=== PATIENT | female | born 1965 | race Caucasian/White ===

== ENCOUNTER → 2016-10-07 | Outpatient (CLI) | payer OTHER ==
[~2016-10-07] MED LIST: DIPH25TA24 PO; NAPR-1168 PO; PANT40TA PO; TRIA3AER NAE
--- NOTE | 2016-10-07 15:38 | MAMMOGRAPHY REPORT ---
BILATERAL DIGITAL SCREENING MAMMOGRAM TOMOSYNTHESIS WITH CAD: 10/07/2016 CLINICAL HISTORY: Routine screening. TECHNIQUE: Breast tomosynthesis in addition to standard 2D mammography was performed. Current study was also evaluated with a Computer Aided Detection (CAD) system. COMPARISON: Comparison is made to exams dated: 02/20/2015 mammogram, 10/03/2013 mammogram, 11/04/2012 mammogram, 04/02/2012 mammogram, 03/31/2012 mammogram, and 11/26/2009 mammogram - [facility]. BREAST COMPOSITION: The tissue of both breasts is almost entirely fatty. The breast parenchyma is i ncreasingly fatty replaced comparing to more remote mammograms. FINDINGS: No suspicious mass, architectural distortion or cluster of microcalcifications is seen. IMPRESSION: ACR BI-RADS CATEGORY 1: NEGATIVE There is no mammographic evidence of malignancy. A 1 year screening mammogram is recommended. The pa tient will receive written notification of the results. Approximately 10% of breast cancers are not detected with mammography. A negative mammographic report should not delay biopsy if a clinically suggestive mass is present. Marva Cook M.D. ay/:10/07/2016 15:19:23 Dye Winch Operator: Nettie NAIK(R)(M), [facility] letter sent: Normal 1/2 BI-RADS Code: ACR BI-RADS Category 1: Negative
== END | disposition home or self-care (01) ==
LOC: C.MAMM 12:18
PROVIDERS: ATTEND Physician Assistant
DX: Z12.31 Encounter for screening mammogram for malignant neoplasm of breast (principal)

== ENCOUNTER → 2017-11-24 | Outpatient (CLI) | payer OTHER ==
[~2017-11-24] MED LIST changes: -NAPR-1168 PO; +NAPR550T61 PO
--- NOTE | 2017-11-25 13:51 | MAMMOGRAPHY REPORT ---
BILATERAL DIGITAL SCREENING MAMMOGRAM TOMOSYNTHESIS WITH CAD: 11/24/2017 CLINICAL HISTORY: Routine screening. TECHNIQUE: The study was acquired using full field digital technology and interpreted from soft copy. Breast tomosynthesis in addition to standard 2D mammography was performed. Current study was also ev aluated with a Computer Aided Detection (CAD) system. COMPARISON: Comparison is made to exams dated: 10/07/2016 mammogram, 02/20/2015 mammogram, 10/03/2013 mammogram, 03/31/2012 mammogram, 11/26/2009 mammogram - [facility], and 11/23/2008. BREAST COMPOSITION: The tissue of both breasts is almost entirely fatty. FINDINGS: A linear scar marker overlies the medial left breast. No suspicious mass, architectural dis tortion or cluster of microcalcifications is seen. IMPRESSION: ACR BI-RADS CATEGORY 1: NEGATIVE There is no mammographic evidence of malignancy. A 1 year screening mammogram is recommended.( 019) The patient will receive written notification of the results. Some breast cancers are not detected with mammography. A negative mammographic report should not kelsie y biopsy if a clinically suggestive mass is present. Marva Cook M.D. ay/:11/24/2017 21:53:08 Wastewater Design Engineer: RT Nacho(Allan)(M), [facility] letter sent: Normal 1/2 BI-RADS Code: ACR BI-RADS Category 1: Negative
== END | disposition home or self-care (01) ==
LOC: C.MAMM 15:05
PROVIDERS: ATTEND Physician Assistant
DX: Z12.31 Encounter for screening mammogram for malignant neoplasm of breast (principal)

== ENCOUNTER 2019-02-14 08:33 | Inpatient (IN) ==
[2019-02-14] MEDS ORDERED: ACETAMINOPHEN 1,000 MG/100 ML VIAL IV STA (09:26)
[2019-02-14] MEDS ORDERED: ONDANSETRON INJ 2 MG/ML 2 ML VIAL IV STA (09:26)
[2019-02-14] MEDS ORDERED: HYDROmorphone INJ 1 MG/ML SYRINGE IV PRN (09:26)
--- NOTE | 2019-02-14 09:36 | XRay Report ---
XR chest 1V not portable HISTORY: 53 years-old Female chest/upper abd pain acute atypical chest pain with upper abdominal ang n COMPARISON: Chest radiograph 07/21/2018 TECHNIQUE: Portable AP view of the chest FINDINGS: The cardiac silhouette is upper limits of normal in size. Mediastinal contours appear unremarkable. N o pneumothorax, pleural effusion, focal airspace consolidation or overt pulmonary edema. Degenerative changes of the shoulders and spine. IMPRESSION: No acute process. The above report was generated using voice recognition software. It may contain grammatical, syntax o r spelling errors. Electronically signed by: Vinay Cabrera M.D. 02/14/2019 9:35 AM
[2019-02-14 09:50] LABS: Basophils # (auto) 0.03 K/uL (0-0.2); Basophils % (auto) 0.2 %; Eosinophils # (auto) 0.04 K/uL (0-0.5); Eosinophils % (auto) 0.2 %; Hematocrit (blood only) 44.7 % (37-47); Hemoglobin 16.2 g/dL (12.0-16.0); Immature Granulocytes # (auto) 0.05 K/uL (0.00-0.02); Immature Granulocytes % (auto) 0.3 %; Lymphocytes # (auto) 1.27 K/uL (1.2-3.4); Mean Corpuscular Hgb Conc 36.2 g/dL (32-36); Mean Corpuscular Volume 80.1 fL (80-100); Mean Platelet Volume 9.3 fL (7.4-10.4); Monocytes # (auto) 0.84 K/uL (0.11-0.59); Monocytes % (auto) 4.6 %; Neutrophils # (auto) 15.97 K/uL (1.4-6.5); Neutrophils % (auto) 87.7 %; Platelet Count 286 K/uL (130-400); RDW Standard Deviation 38.2 fL (36.4-46.3); Red Blood Count 5.58 M/uL (4.2-5.4)
[2019-02-14 10:06] LABS: Alanine Aminotransferase 385 U/L (12-78); Albumin Level 3.8 gm/dl (3.4-5.0); Alkaline Phosphatase 182 U/L (45-117); BUN Creatinine Ratio 19.4 (10-20); Bilirubin,Total 2.3 mg/dl (0.2-1); Blood Urea Nitrogen 15 mg/dl (7-18); Calcium 9.4 mg/dl (8.5-10.1); Carbon Dioxide 26 mmol/L (21-32); Chloride 105 mmol/L (98-107); Creatinine Clr Calc Pharmacy 102.6 ml/min; Est GFR (African American) 99.2; Est GFR (Non-African American) 85.6; Globulin 3.7 gm/dl (2.5-4.0); Glucose 135 mg/dl (70-99); Lipase 28353 U/L (73-393); Sodium 136 mmol/L (136-145); Total Protein 7.5 gm/dl (6.4-8.2)
--- NOTE | 2019-02-14 10:27 | Ultrasound Report ---
BILIARY ULTRASOUND CLINICAL HISTORY: Right upper quadrant abdominal pain COMPARISON STUDY: None FINDINGS: The pancreas appears sonographically normal. The liver appears sonographically normal. Ther e are multiple gallstones. There is borderline gallbladder wall thickening. The gallbladder wall guevara ures 4 mm. The technologist reports a negative sonographic Phoenix sign. There is no ductal dilatation . The common bile duct measures 5 mm. There is no right-sided hydronephrosis. IMPRESSION: Cholelithiasis with borderline gallbladder wall thickening. No evidence of ductal dilata tion. Electronically signed by: Randall Manzanares M.D. 02/14/2019 10:25 AM
[2019-02-14] MEDS ORDERED: IOVERSOL 100ml IV PRN (10:30)
[2019-02-14] MEDS ORDERED: cefOXitin 2,000 MG/60 ML BAG IV STA (10:33)
--- NOTE | 2019-02-14 10:44 | CT Scan Report ---
CT abd pelvis IV con only CLINICAL HISTORY: 53 years-old Female presenting with Pt c/o RUQ abd pain. TECHNIQUE: Multidetector CT of the abdomen and pelvis was performed after the administration of intra venous contrast. IV contrast: 93 mL of Optiray 320. One or more dose lowering techniques were used co nsistent with the principles of ALARA (as low as reasonably achievable), including automatic exposure control, mA or kV adjustment to individual patient size, and/or use of iterative reconstruction. COMPARISON: None. CT DOSE (mGy.cm): The estimated cumulative dose is 1139.59 mGycm. FINDINGS: Telephone Lines Repairer topogram: Unremarkable. Lung bases: Normal heart size. No pericardial or pleural effusion. Minimal dependent changes likely a telectasis. Liver: Normal morphology. Density suggestive of hepatic steatosis. No focal lesion. Patent hepatic va sculature. Biliary: No intrahepatic or extrahepatic biliary ductal dilatation. The gallbladder is distended with gallbladder wall thickening. No radiodense gallstones are evident in the gallbladder lumen or bile d ucts. Pancreas: Significant peripancreatic fluid along both the ventral and dorsal aspects of the entire le ngth of the pancreas. Exuberant periduodenal fluid with a focal collection measuring 3.7 cm. There is no hypoenhancing portion of the pancreatic parenchyma at this time. No pancreatic ductal dilatation. Extension of inflammatory changes into the lesser sac and mesentery as well as the periduodenal retr operitoneum. Spleen: Normal. The splenic artery and vein are patent and normal in caliber. Adrenal glands: Normal. Kidneys and ureters: Normal. No hydronephrosis. Bladder: Incompletely evaluated secondary to underdistention. Pelvic organs: Uterus and ovaries normal. Bowel: A few diverticula in the sigmoid colon. Extension of inflammatory changes into the transverse mesial colon without resultant wall thickening or stenosis of the transverse colon. The appendix is n ot visualized. No bowel obstruction. Mild gaseous distention of the distal esophagus. Mucosal hyperem ia of the descending duodenum with mild if any wall thickening present likely on a secondary reactive basis. Peritoneal cavity: Small free fluid in the pelvis. Trace perihepatic ascites. Exuberant retroperitone al fluid emanating from the pancreas as mentioned. No free intraperitoneal gas. Lymph nodes: No enlarged lymph nodes in the abdomen or pelvis. Vasculature: Aorta and IVC patent and normal in caliber. Abdominal wall: Normal. Musculoskeletal: Normal. IMPRESSION: 1. Moderate to severe interstitial edematous pancreatitis with acute peripancreatic fluid collection in the periduodenal region. No evidence of necrosis or other complication at this time apart from si gnificant surrounding inflammatory change. Suspected reactive secondary inflammatory change of the de scending duodenum and gallbladder. Primary cholecystitis is considered unlikely. Ultrasound or MRCP c ould be obtained to evaluate for gallstones as the etiology for pancreatitis as no radiopaque gallsto mitzi are evident on this exam. Electronically signed by: Christiano Lima M.D. 02/14/2019 10:43 AM
--- NOTE | 2019-02-14 10:48 | Gastrointestinal Consultation ---
Date of Consultation February 14, 2019 Assessment & Plan (1) Choledocholithiasis: Ms. Neely is a 53 yr old female with abdominal pain, elevated LFTs, imaging consistent with choledocholithisis. 1. ERCP procedure described in detail including possible complications: bleeding, pancreatitis. Pt agrees to go forward with this procedure today. 2. Please cover for cholangitis with continued broad spectrum antibiotic. Present on Admission?: Yes (2) Gallstone pancreatitis: 1. LR at 250cc/hr. 2. NPO. 3. Check LFTs, lipase tomorrow. . Present on Admission?: Yes Supervising Physician Co-Signing Physician Notes I performed a history and physical examination of the patient, including spec ifically on physical exam - soft, nontender abdomen. I have discussed the patient's management with Chelo. Please refer to the nurse practitioner's note for the documented findings and plan of care. 53 female patient with abdominal pain, pancreatitis on imaging with gallstones nd elevated LFTs and bilirubin high propability for choledocholithiasis. Plan for ERCP today. Patient agreed after I explained risk , benefit and alternatives. History of Present Illness Reason for Consultation: Choledocholithiasis Requesting Physician: Dr. Guillen Attending Physician: Dr. Lakhani History of Present Illness Ms. Cydney Neely is a 53 yr old female pt of Dolores Clifford PA-C with an unremarkable PMH who presented to the ED today for upper abdomen pain that began after eating nachos, around 10 PM last night. GI is consulted for choledocholithiasis. The pt tells me that the pain was "severe," upper abdomen, with nausea/vomiting last night. She has not had diarrhea, fevers or acholic stools. She recalls that she experienced a similar episode of pain a few weeks ago. On arrival, US suggests choledocholithiasis and CT suggests acute pancreatitis. LFTs and Lipase are elevated: T Bili 2.3, ALT 385, Lipase 28k. She is afebrile but has leukocytosis: WBC 18. Cr is 0.78, Hb 18 Hct 44. She was given Cefoxitin IV. She is awake, alert, oriented, hemodynamically stable and tells me that she continues in pain that is somewhat improved with IV pain medication. Allergies Allergy/AdvReac Type Severity Reaction Status Date / Time Sulfa (Sulfonamide Allergy Severe HIVES Verified 02/14/19 10:03 Antibiotics) sulfamethoxazole Allergy Severe Verified 02/14/19 10:03 Home Medications Home Medications Medication Instructions Recorded Confirmed Type cyclobenzaprine 5 mg PO TID PRN 02/14/19 02/14/19 History diphenhydramine HCl [Benadryl] 50 mg PO HS PRN 02/14/19 02/14/19 History pantoprazole 40 mg PO HS 02/14/19 02/14/19 History ranitidine HCl 300 mg PO HS 02/14/19 02/14/19 History triamcinolone acetonide [Nasacort] 2 spray INTRANASAL DAILY PRN 02/14/19 02/14/19 History Patient History Medical History BEAU (obstructive sleep apnea) (Chronic) Not on CPAP Obesity (Chronic) Recurrent sinusitis (Chronic) GERD (gastroesophageal reflux disease) (Chronic) No pertinent past medical history Surgical History History of arthroscopy of knee (Chronic) History of arthroscopy of shoulder (Chronic) History of (Chronic) x 3 No pertinent past surgical history Family History Grandfather (Maternal) Stroke Brother Diabetes Other Cancer Social History Preferred Language: Moroccan Communication Ability: Effective Publicity Person Required: No Beliefs That Will Affect Care: None Current Living Situation: Spouse Other Information That Helps Us Care for You: No Feels Safe at Home: Yes Safety Concerns: Feels Safe At This Time Smoking Status: Never smoker Hx Alcohol Use: Yes (1 glass wine once a month) Hx Substance Use: No Review of Systems Review of Systems: ROS: Gen: Denies weakness, fevers, weight loss Eyes: No icterus, eye redness, or pain, no recent vision changes Resp: No SOB, no cough Cardio: No palpitations/irregular beats, no chest pain GI: + abdominal pain, + nausea/vomiting : No dark urine, no hematemesis, denies pain on urination Skin: No jaundice, itching or new rashes Physical Exam Constitutional: WD/WN, vitals as above Appears uncomfortable but no acute distress. She is able to answer questions provide details regarding her symptoms. Eyes: PERRL, conjunctivae normal, anicteric sclerae ENMT: external ear and nose normal, oropharynx normal Neck: trachea midline, no thyromegaly Respiratory: normal respiratory effort, lungs clear to auscultation Cardiovascular: RRR, no murmur, no edema Gastrointestinal (Abdomen): Inspection/Auscultation: + hypoactive bowel sounds Percussion/Palpation: + abdomen tender (epigastric area), + guarding and abdomen soft; abdomen not rigid Skin: no rashes, warm and dry no jaundice Neurologic: PERRL, EOMI, accommodation nl, no face palsy, no dysarthria Psychiatric: A+Ox3, euthymic affect Lymphatic: no cervical or axillary lymphadenopathy Results & Data Vital Signs (Past 12 Hours) Vital Signs Temp Pulse Resp BP Pulse Ox 02/14/19 08:42 36.3 C L 64 18 141/[address] abd/pelvis with IV no oral contrast 02/14/19: Moderate to severe interstitial edematous pancreatitis with acute peripancreatic fluid collection in the periduodenal region. No evidence of necrosis or other complication at this time apart from significant surrounding inflammatory change. Suspected reactive secondary inflammatory change of the descending duodenum and gallbladder. Primary cholecystitis is considered unlikely. Ultrasound or MRCP could be obtained to evaluate for gallstones as the etiology for pancreatitis as no radiopaque gallstones are evident on this exam. US 02/14/19: Cholelithiasis with borderline gallbladder wall thickening. No evidence of ductal dilatation.
[2019-02-14 10:56] LABS: Potassium 4.1 mmol/L (3.5-5.1)
--- NOTE | 2019-02-14 11:26 | History & Physical Report ---
Date of Service February 14, 2019 Assessment & Plan (1) Gallstone pancreatitis: (2) Transaminitis: Pt is 53 y/o F with PMH GERD, recurrent sinusitis presented with c/o upper dull abdominal pain starting last night after eating nachos. Also c/o nausea, vomiting x 2 and Reports chills. In ER T: 36.3C, P: 64, R: 18, BP: 141/88, 97% on RA. WBC: 18, H/H: 16/44, T Bili: 2.3, AST: 439, ALT: 385, Alk Phos: 182, Lipase: 28,353 CT ABD/PELVIS WITH IV CONTRAST: Moderate to severe interstitial edematous pancreatitis with acute peripancreatic fluid collection in the periduodenal region. No evidence of necrosis or other complication at this time apart from significant surrounding inflammatory change. Suspected reactive secondary inflammatory change of the descending duodenum and gallbladder. Primary cholecystitis is considered unlikely. ABD US: Cholelithiasis with borderline gallbladder wall thickening. No evidence of ductal dilatation. Pancreatitis, likely biliary -In ER pt given Dilaudid, Zofran, Mefoxin, IV Tylenol -Obtain blood cultures (antibiotics already given in ER) -NPO -Zosyn -Lactated ringers, will give bolus now, followed by maintenance -Zofran prn nausea -Morphine prn pain -GI consult. Aware, possible ERCP today -General surgery consult -CBC, Liver/CMP, Lipase in am (3) GERD (gastroesophageal reflux disease): -Hold home oral PPI and H2 theron -IV pepcid for now while NPO (4) BEAU (obstructive sleep apnea): Does not use CPAP -Monitor, may need oxygen HS DVT Prophylaxis -SCDs Follows with Dr Perez for routine care Pt was seen and care coordinated with Dr Lakhani. See addendum History of Present Illness Chief Complaint: Abdominal pain Primary Care Provider: Dr Perez Pt is 53 y/o F with PMH GERD, recurrent sinusitis presented to ER with c/o abdominal pain. Pt states ate nachos for dinner and around 2100 last night ate some chips. At approx 2200 developed upper abdominal pain described as constant dull pain and nausea. Tried TUMS, ranitidine without relief. Reports vomiting x 2. Denies diarrhea or constipation. Last night with chills, did not take her temperature. Reports one month ago had similar upper abdominal pain that resolved with taking TUMS. Unsure what she ate at that time. Denies diaphoresis, hematemesis, CHAVEZ, dizziness, syncope, vision changes, neck pain, CP, SOB, orthopnea, palpitations, cough, sore throat, choking, otalgia, rhinorrhea, paresthesias, weakness, extremity weakness, extremity edema, rashes, urinary symptoms. Allergies Allergy/AdvReac Type Severity Reaction Status Date / Time Sulfa (Sulfonamide Allergy Severe HIVES Verified 02/14/19 10:03 Antibiotics) sulfamethoxazole Allergy Severe Verified 02/14/19 10:03 Home Medications Home Medications Medication Instructions Recorded Confirmed Type cyclobenzaprine 5 mg PO TID PRN 02/14/19 02/14/19 History diphenhydramine HCl [Benadryl] 50 mg PO HS PRN 02/14/19 02/14/19 History pantoprazole 40 mg PO HS 02/14/19 02/14/19 History ranitidine HCl 300 mg PO HS 02/14/19 02/14/19 History triamcinolone acetonide [Nasacort] 2 spray INTRANASAL DAILY PRN 02/14/19 02/14/19 History Past Med/Surg History Medical History BEAU (obstructive sleep apnea) (Chronic) Not on CPAP Obesity (Chronic) Recurrent sinusitis (Chronic) GERD (gastroesophageal reflux disease) (Chronic) No pertinent past medical history Surgical History History of arthroscopy of knee (Chronic) History of arthroscopy of shoulder (Chronic) History of (Chronic) x 3 No pertinent past surgical history Family History Grandfather (Maternal) Stroke Brother Diabetes Other Cancer Social History Preferred Language: Macedonian Communication Ability: Effective Zinc Plate Grainer Required: No Beliefs That Will Affect Care: None Current Living Situation: Spouse Other Information That Helps Us Care for You: No Feels Safe at Home: Yes Safety Concerns: Feels Safe At This Time Smoking Status: Never smoker Hx Alcohol Use: Yes (1 glass wine once a month) Hx Substance Use: No Review of Systems Review of Systems: All systems reviewed & are unremarkable except as noted in HPI & below Physical Exam Physical Exam: General: no distress, obese Head: normocephalic, atraumatic Eyes: PERRL, EOM's intact, conjunctiva non-injected, anicteric ENT: normal inspection external ears, nose, mucous membranes dry Neck: supple, trachea midline Lungs: clear, no respiratory distress, no wheezing/rhonchi/rales CV: RRR, no murmur, no JVD, no pretibial edema Abd: normal BS, soft, +tenderness to palpation RUQ, epigastric, LUQ, no rebound Ext: no cyanosis, no calf tenderness Neuro: A&O x 3, no focal deficits noted, normal affect Skin: warm, dry Results & Data Vital Signs (Past 12 Hours) Vital Signs Temp Pulse Resp BP Pulse Ox 02/14/19 08:42 36.3 C L 64 18 141/88 H 97 Laboratory Results Short CBC 02/14/19 Range/Units 09:30 WBC 18.20 H (4.8-10.8) K/uL Hgb 16.2 H (12.0-16.0) g/dL Hct 44.7 (37-47) % Plt Count 286 (130-400) K/uL BMP 02/14/19 02/14/19 09:30 10:35 Sodium 136 Potassium TNP 4.1 Chloride 105 Carbon Dioxide 26 BUN 15 Creatinine 0.78 Glucose 135 H Calcium 9.4 Liver Function 02/14/19 02/14/19 Range/Units 09:30 10:35 Total Bilirubin 2.3 H (0.2-1) mg/dl AST 439 H (15-37) U/L ALT 385 H (12-78) U/L Alkaline Phosphatase 182 H (45-117) U/L Albumin 3.8 (3.4-5.0) gm/dl Diagnostic Findings CT ABD/PELVIS WITH IV CONTRAST: IMPRESSION: 1. Moderate to severe interstitial edematous pancreatitis with acute peripancreatic fluid collection in the periduodenal region. No evidence of necrosis or other complication at this time apart from significant surrounding inflammatory change. Suspected reactive secondary inflammatory change of the descending duodenum and gallbladder. Primary cholecystitis is considered unlikely. Ultrasound or MRCP could be obtained to evaluate for gallstones as the etiology for pancreatitis as no radiopaque gallstones are evident on this exam. ABD US: IMPRESSION: Cholelithiasis with borderline gallbladder wall thickening. No evidence of ductal dilatation. CXR: IMPRESSION: No acute process. ECG Rate (beats per minute): 63 Rhythm: normal sinus Code Status & VTE Plan VTE Prophylaxis Plan VTE Prophylaxis will be ordered: Yes Supervising Physician Co-Signing Physician Notes I, Dr. Luisito Lakhani, have seen and examined the patient with physician senior assistant manager and would like to comment that: CHOLELTHIASIS ACUTE PANCREATITIS SUSPECTED CHOLEDOCHOLITHIASIS TRANSAMINITIS LEUKOCYTOSIS -Cydney Neely is a 53 year old female patient with recurrent abdominal pain -Abdominal ultrasound with Cholelithiasis -CT abdomen: Moderate to severe interstitial edematous pancreatitis with acute peripancreatic fluid collection in the periduodenal region -Given gallbladder abnormality of cholelithiasis with acute pancreatitis, it is likely that patient also has Choledocholithiasis -Transaminitis from acute pancreatitis or gallbladder related etiologies -Leukocytosis may be seen as marker for possible underlying infection versus non-bacterial leukemoid reaction. Patient may benefit from antibiotics empirically -Patient was given cefoxitin in the ED. Will star on Zosyn -IV fluids as lactated ringers solution 150 cc/hr -IV pain medications prn, IV ant-emetics prn -Gastroenterology may be planning for ERCp -Will also request general surgery consult evaluation in case of any possible need for cholecystectomy -Agree with other assessment and plan as documented by physician senior assistant manager On Physical Exam General: laying at rest in the ED on the bed. Lungs: clear to auscultation bilaterally Heart: regular rate and rhythm Abdomen: no acute pain on palpation on my exam but patient reported that discomfort is no more left sided compared to right sided previously, abdomen is soft, positive bowel sounds Extremities: no edema My colleague Dr. Mathis will be following the patient as hospitalist starting on 02/15/19
[2019-02-14] MEDS ORDERED: LACTATED RINGER'S 1,000 ML IV ONE (12:00)
[2019-02-14] MEDS ORDERED: POLYETHYLENE (MIRALAX) 17 GM PACK PO PRN (12:04)
[2019-02-14] MEDS ORDERED: ONDANSETRON INJ 2 MG/ML 2 ML VIAL IV PRN ×2 (12:04→14:35)
[2019-02-14] MEDS ORDERED: TRIAMCINOLONE ACET NASAL SPRAY 10.8ML BTL NAE PRN (12:04)
[2019-02-14] MEDS ORDERED: PIPERACILL/TAZOBAC CONSULT ACTIVE PRN (12:07)
[2019-02-14] MEDS ORDERED: PIPERACILLIN/TAZOBACTAM 4.5 GM in DEXTROSE 5% 100 ML IV ONE (12:15)
--- NOTE | 2019-02-14 12:40 | Anesthesiology Consultation ---
Date of Service February 14, 2019 Assessment & Plan (1) Encounter for pre-operative examination: Chart Review Chart Review: Acceptable Risk for Surgery History Surgery Operation Date: 02/14/19 14:05 Proposed Procedures p Endoscopic Retrograde Cholangiopancreatogram - Tk Lugo MD Height/Weight Height: 5 ft 7 in Weight: 107 kg Allergies Allergy/AdvReac Type Severity Reaction Status Date / Time Sulfa (Sulfonamide Allergy Severe HIVES Verified 02/14/19 10:03 Antibiotics) sulfamethoxazole Allergy Severe Verified 02/14/19 10:03 Medications Home Medications Medication Instructions Recorded Confirmed Last Taken cyclobenzaprine 5 mg PO TID PRN 02/14/19 02/14/19 Unknown diphenhydramine HCl [Benadryl] 50 mg PO HS PRN 02/14/19 02/14/19 Unknown pantoprazole 40 mg PO HS 02/14/19 02/14/19 02/13/19 ranitidine HCl 300 mg PO HS 02/14/19 02/14/19 02/13/19 triamcinolone acetonide [Nasacort] 2 spray INTRANASAL DAILY PRN 02/14/19 02/14/19 Unknown Past Medical History Medical History BEAU (obstructive sleep apnea) (Chronic) Not on CPAP Obesity (Chronic) Recurrent sinusitis (Chronic) GERD (gastroesophageal reflux disease) (Chronic) No pertinent past medical history Past Family History Family History Grandfather (Maternal) Stroke Brother Diabetes Other Cancer Past Surgical History Surgical History History of arthroscopy of knee (Chronic) History of arthroscopy of shoulder (Chronic) History of (Chronic) x 3 No pertinent past surgical history Social History Smoking Status: Never smoker Hx Alcohol Use: Yes (1 glass wine once a month) Hx Substance Use: No Physical Exam Vital Signs Last Vital Signs Temp 36.6 C 02/14/19 12:06 Pulse 61 02/14/19 12:06 Resp 18 02/14/19 12:06 BP 167/93 H 02/14/19 12:06 Pulse Ox 96 02/14/19 12:06 Testing Laboratory Results 02/14/19 09:30 02/14/19 10:35 Electrocardiogram Date: 02/14/19 Findings: + NSR @ (63) Chest X-Ray Date: 02/14/19 Findings: + NAD
[2019-02-14] MEDS: LACTATED RINGER'S 1,000 ML IV SCH ×3 (13:03→22:58)
[2019-02-14] MEDS ORDERED: INDOMETHACIN 50 MG SUPP PR ONE (14:01)
[2019-02-14] MEDS ORDERED: fentaNYL citrate 100 MCG/2 ML VIAL ONE (14:02)
[2019-02-14] MEDS ORDERED: PROPOFOL IV EMULSION 10 MG/ML 20 ML VIAL IV ONE ×2 (14:02→15:13)
[2019-02-14] MEDS ORDERED: LIDOCAINE HCL 2% 2 ML VIAL/AMP(20MG/ML) INFIL ONE (14:02)
[2019-02-14] MEDS ORDERED: ROCURONIUM BROMIDE 10 MG/ML 5 ML VIAL ONE (14:02)
[2019-02-14] MEDS ORDERED: ONDANSETRON INJ 2 MG/ML 2 ML VIAL ONE (14:02)
[2019-02-14] MEDS ORDERED: SUCCINYLCHOLINE CHLORIDE 20 MG/ML 10 ML VIAL ONE (14:02)
[2019-02-14] MEDS ORDERED: ATROPINE SULFATE 0.1 MG/ML 10ML SYR IV PRN (14:35)
[2019-02-14] MEDS ORDERED: ePHEDrine sulfate 50 MG/ML AMP IV PRN (14:35)
[2019-02-14] MEDS ORDERED: fentaNYL citrate 100 MCG/2 ML VIAL IV PRN (14:35)
--- NOTE | 2019-02-14 14:41 | Surgery Consultation ---
Date of Consultation February 14, 2019 Assessment & Plan (1) Gallstone pancreatitis: 53 year-old female presented to ED with abdominal pain, nausea, and vomiting that started last evening. CT scan showing acute pancreatitis with moderate interstitial edema and fluid collection near the duodenum. No necrosis. US showing gallstones and mild gallbladder wall thickening. Leukocytosis of 18K. T. bili at 2.3, AST 439, ALT 385, ALK 182, Lipase [id number] Plan: Going for ERCP today, will await results Given acute pancreatitis with moderate to severe inflammation and fluid collection recommend conservative measures to allow pancreatitis to resolve prior to entertaining cholecystectomy. Will likely have cholecystectomy this admission but will want to monitor labs and clinical improvement. Continue IV Abx Continue IV fluid hydration Continue IV pain management and Zofran prn pain and nausea keep NPO continue medical management Dr. Zimmer as seen and examined pt, agrees with above. Supervising Physician Co-Signing Physician Notes I interviewed and examined this patient I agree with the above note. She had choledocholithiasis and underwent ERCP. She has severe pancreatitis. Will need to wait for that to resolve somewhat prior to cholecystectomy which will be required. History of Present Illness Reason for Consultation: Gallstone pancreatitis Requesting Physician: Luisito Lakhani MD Attending Physician: Luisito Lakhani MD History of Present Illness Cydney is a pleasant 53 year-old female who presented to ED last night with complaint of sudden abdominal pain, nausea, and vomiting that started last night. States she has tortilla chips prior to abdominal pain. States she had a similar episode of pain in November which resolved on its own after taking TUMS. No prior history of gallbladder problems. No prior history of pancreatitis, jaundice, hepatitis. Had some chills last night. No changes in bowel habits, diarrhea, constipation, or blood in stools. Er work-up included labs which showed leukocytosis of 18k. T. bili of 2.3, elevated LFTS and alk phose. Lipase elevated at 28,353. CT scan showing moderate to severe interstitial edematous pancreatitis with fluid collection in the periduodenal region. Gallbladder ultrasound showing gallstones and mild gallbladder wall thickening. Allergies Allergy/AdvReac Type Severity Reaction Status Date / Time Sulfa (Sulfonamide Allergy Severe HIVES Verified 02/14/19 10:03 Antibiotics) sulfamethoxazole Allergy Severe Verified 02/14/19 10:03 Home Medications Home Medications Medication Instructions Recorded Confirmed Type cyclobenzaprine 5 mg PO TID PRN 02/14/19 02/14/19 History diphenhydramine HCl [Benadryl] 50 mg PO HS PRN 02/14/19 02/14/19 History pantoprazole 40 mg PO HS 02/14/19 02/14/19 History ranitidine HCl 300 mg PO HS 02/14/19 02/14/19 History triamcinolone acetonide [Nasacort] 2 spray INTRANASAL DAILY PRN 02/14/19 02/14/19 History Patient History Medical History BEAU (obstructive sleep apnea) (Chronic) Not on CPAP Obesity (Chronic) Recurrent sinusitis (Chronic) GERD (gastroesophageal reflux disease) (Chronic) No pertinent past medical history Surgical History History of arthroscopy of knee (Chronic) History of arthroscopy of shoulder (Chronic) History of (Chronic) x 3 No pertinent past surgical history Family History Grandfather (Maternal) Stroke Brother Diabetes Other Cancer Social History Preferred Language: Mauritian Communication Ability: Effective [employer] Required: No Beliefs That Will Affect Care: None Current Living Situation: Spouse Other Information That Helps Us Care for You: No Feels Safe at Home: Yes Safety Concerns: Feels Safe At This Time Smoking Status: Never smoker Hx Alcohol Use: Yes (1 glass wine once a month) Hx Substance Use: No Review of Systems Review of Systems: All systems reviewed & are unremarkable except as noted in HPI & below Physical Exam Constitutional: WD/WN, vitals as above + obese; no acute distress Respiratory: normal respiratory effort, lungs clear to auscultation Cardiovascular: RRR, no murmur, no edema Gastrointestinal (Abdomen): Inspection/Auscultation: abdomen normal to inspection; abdomen not distended Percussion/Palpation: + abdomen tender (epigastricum and LUQ) and abdomen soft; no guarding and abdomen not rigid Skin: no rashes, warm and dry Psychiatric: A+Ox3, euthymic affect Results & Data Vital Signs (Past 12 Hours) Vital Signs Temp Pulse Pulse Pulse Resp BP BP 02/14/19 14:00 36.7 C 62 20 152/86 H 02/14/19 12:06 36.6 C 61 18 167/93 H 02/14/19 11:51 66 17 126/79 02/14/19 11:30 61 17 135/115 H 02/14/19 08:42 36.3 C L 64 18 141/88 H Pulse Ox 02/14/19 14:00 94 02/14/19 12:06 96 02/14/19 11:51 94 02/14/19 11:30 96 02/14/19 08:42 97 Laboratory Results 02/14/19 02/14/19 02/14/19 Range/Units 10:35 09:30 09:30 WBC 18.20 H (4.8-10.8) K/uL RBC 5.58 H (4.2-5.4) M/uL Hgb 16.2 H (12.0-16.0) g/dL Hct 44.7 (37-47) % MCV 80.1 (80-100) fL MCH 29.0 (25-34) pg MCHC 36.2 H (32-36) g/dL RDW Std Deviation 38.2 (36.4-46.3) fL RDW Coeff of Reggie 13.0 (11.5-14.5) % Plt Count 286 (130-400) K/uL MPV 9.3 (7.4-10.4) fL Immature Gran % (Auto) 0.3 % Neut % (Auto) 87.7 % Lymph % (Auto) 7.0 % [place] % (Auto) 4.6 % Eos % (Auto) 0.2 % Baso % (Auto) 0.2 % Immature Gran # (Auto) 0.05 H (0.00-0.02) K/uL Neut # (Auto) 15.97 H (1.4-6.5) K/uL Lymph # (Auto) 1.27 (1.2-3.4) K/uL [place] # (Auto) 0.84 H (0.11-0.59) K/uL Eos # (Auto) 0.04 (0-0.5) K/uL Baso # (Auto) 0.03 (0-0.2) K/uL Sodium 136 (136-145) mmol/L Potassium 4.1 TNP Chloride 105 (98-107) mmol/L Carbon Dioxide 26 (21-32) mmol/L Anion Gap 5.0 (3-11) BUN 15 (7-18) mg/dl Creatinine 0.78 (0.6-1.2) mg/dl Est Cr Clr Drug Dosing 102.6 ml/min Est GFR ( Amer) 99.2 Est GFR (Non-Af Amer) 85.6 BUN/Creatinine Ratio 19.4 (10-20) Glucose 135 H (70-99) mg/dl Calcium 9.4 (8.5-10.1) mg/dl Total Bilirubin 2.3 H (0.2-1) mg/dl AST 439 H (15-37) U/L ALT 385 H (12-78) U/L Alkaline Phosphatase 182 H (45-117) U/L Total Protein 7.5 (6.4-8.2) gm/dl Albumin 3.8 (3.4-5.0) gm/dl Globulin 3.7 (2.5-4.0) gm/dl Albumin/Globulin Ratio 1.0 (0.9-2) Lipase 19603 H (73-393) U/L Diagnostic Findings CT abd pelvis IV con only CLINICAL HISTORY: 53 years-old Female presenting with Pt c/o RUQ abd pain. TECHNIQUE: Multidetector CT of the abdomen and pelvis was performed after the administration of intravenous contrast. IV contrast: 93 mL of Optiray 320. One or more dose lowering techniques were used consistent with the principles of ALARA (as low as reasonably achievable), including automatic exposure control, mA or kV adjustment to individual patient size, and/or use of iterative reconstruction. COMPARISON: None. CT DOSE (mGy.cm): The estimated cumulative dose is 1139.59 mGycm. FINDINGS: Epic Director topogram: Unremarkable. Lung bases: Normal heart size. No pericardial or pleural effusion. Minimal dependent changes likely atelectasis. Liver: Normal morphology. Density suggestive of hepatic steatosis. No focal lesion. Patent hepatic vasculature. Biliary: No intrahepatic or extrahepatic biliary ductal dilatation. The gallbladder is distended with gallbladder wall thickening. No radiodense gallstones are evident in the gallbladder lumen or bile ducts. Pancreas: Significant peripancreatic fluid along both the ventral and dorsal aspects of the entire length of the pancreas. Exuberant periduodenal fluid with a focal collection measuring 3.7 cm. There is no hypoenhancing portion of the pancreatic parenchyma at this time. No pancreatic ductal dilatation. Extension o f inflammatory changes into the lesser sac and mesentery as well as the periduodenal retroperitoneum. Spleen: Normal. The splenic artery and vein are patent and normal in caliber. Adrenal glands: Normal. Kidneys and ureters: Normal. No hydronephrosis. Bladder: Incompletely evaluated secondary to underdistention. Pelvic organs: Uterus and ovaries normal. Bowel: A few diverticula in the sigmoid colon. Extension of inflammatory changes into the transverse mesial colon without resultant wall thickening or stenosis of the transverse colon. The appendix is not visualized. No bowel obstruction. Mild gaseous distention of the distal esophagus. Mucosal hyperemia of the descending duodenum with mild if any wall thickening present likely on a secondary reactive basis. Peritoneal cavity: Small free fluid in the pelvis. Trace perihepatic ascites. Exuberant retroperitoneal fluid emanating from the pancreas as mentioned. No free intraperitoneal gas. Lymph nodes: No enlarged lymph nodes in the abdomen or pelvis. Vasculature: Aorta and IVC patent and normal in caliber. Abdominal wall: Normal. Musculoskeletal: Normal. IMPRESSION: 1. Moderate to severe interstitial edematous pancreatitis with acute peripancreatic fluid collection in the periduodenal region. No evidence of necrosis or other complication at this time apart from significant surrounding inflammatory change. Suspected reactive secondary inflammatory change of the descending duodenum and gallbladder. Primary cholecystitis is considered unlikely. Ultrasound or MRCP could be obtained to evaluate for gallstones as the etiology for pancreatitis as no radiopaque gallstones are evident on this exam. BILIARY ULTRASOUND CLINICAL HISTORY: Right upper quadrant abdominal pain COMPARISON STUDY: None FINDINGS: The pancreas appears sonographically normal. The liver appears sonographically normal. There are multiple gallstones. There is borderline gallbladder wall thickening. The gallbladder wall measures 4 mm. The technologist reports a negative sonographic Phoenix sign. There is no ductal dilatation. The common bile duct measures 5 mm. There is no right-sided hydronephrosis. IMPRESSION: Cholelithiasis with borderline gallbladder wall thickening. No evidence of ductal dilatation.
--- NOTE | 2019-02-14 15:18 | Operative Report ---
Post Operative Report Pre & Post Diagnosis Operation Date: 02/14/19 14:05 Pre-Op Diagnosis: choledochelithiasis Post-Op Diagnosis: choledochelithiasis I identified the patient and participated in the time-out.: Yes Procedure Operation Date: 02/14/19 14:05 Actual Procedures p Endoscopic Retrograde Cholangiopancreatogram, Esophagogastroduodenoscopy(Not Applicable) - Tk Lugo MD Surgeon Tk Lugo MD Office Service Coordinator None Estimated Blood Loss 0 Findings See Below (CBD sludge, papillary stenosis, CBD and pd stents placed) Specimens None Description of Procedure ERCP I attest to the content of the Intraoperative Record and any orders documented therein. Any exceptions are noted below.
--- NOTE | 2019-02-14 15:29 | Emergency Department Note ---
Entered by Lai Mauricio acting as a scribe for History of Present Illness General Chief complaint: Illness Stated complaint: ACID REFLUX Time Seen by Provider: 02/14/19 09:13 Source: patient History of Present Illness Provider complaint: Abdominal pain Onset (ago): day(s) 1 Location: abdomen Severity: similar to prior episodes Pain Consistency: + constant Maximum Pain Intensity: 6 Current Pain Intensity: 6 Relieved By: + none Associated symptoms: + nausea/vomiting (No vomiting) The patient is a 53 year old female who presents to the Emergency Room with complaints of constant right upper quadrant abdominal pain that started last night around 22:00. The patient rates the pain as a 6/10 and notes that the pain started about an hour after eating dinner. The patient has some nausea with the pain but denies any vomiting. The patient has had similar pain in the past with reflux but she did not have any relief of symptoms after taking Zantac and Tums. The patient still has her gallbladder, but does have a history of a . Home Medications Home Medications Medication Instructions Recorded Confirmed Type cyclobenzaprine 5 mg PO TID PRN 02/14/19 02/14/19 History diphenhydramine HCl [Benadryl] 50 mg PO HS PRN 02/14/19 02/14/19 History pantoprazole 40 mg PO HS 02/14/19 02/14/19 History ranitidine HCl 300 mg PO HS 02/14/19 02/14/19 History triamcinolone acetonide [Nasacort] 2 spray INTRANASAL DAILY PRN 02/14/19 02/14/19 History Allergies Allergy/AdvReac Type Severity Reaction Status Date / Time Sulfa (Sulfonamide Allergy Severe HIVES Verified 02/14/19 10:03 Antibiotics) sulfamethoxazole Allergy Severe Verified 02/14/19 10:03 Past Med/Surg History Medical History BEAU (obstructive sleep apnea) (Chronic) Not on CPAP Obesity (Chronic) Recurrent sinusitis (Chronic) GERD (gastroesophageal reflux disease) (Chronic) No pertinent past medical history Surgical History History of arthroscopy of knee (Chronic) History of arthroscopy of shoulder (Chronic) History of (Chronic) x 3 No pertinent past surgical history Family History Grandfather (Maternal) Stroke Brother Diabetes Other Cancer Social History Preferred Language: [place]an Communication Ability: 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 and A total of 10 systems reviewed and were otherwise negative Physical Exam Vital Signs Vital Signs - 24 hr 02/14/19 08:42 Temperature 36.3 C L Temperature Source Oral Sepsis Recent Fever Within 48 Hours No Sepsis New/Unexplained Change in Mental Status No Sepsis Action Taken by Nursing No Action Required Pulse Rate 64 Respiratory Rate 18 Blood Pressure 141/88 H Blood Pressure Mean 105 Pulse Oximetry 97 GENERAL: Awake, alert, well-appearing, in no distress HENT: Normocephalic, atraumatic. Oropharynx unremarkable. EYES: Normal conjunctiva. Sclera non-icteric. NECK: Supple. No nuchal rigidity. FROM. No masses. RESPIRATORY: Clear to auscultation. No wheezes. No rales. Normal respiratory effort. CARDIAC: Normal rate. Normal rhythm. No murmurs. No rubs. Extremities warm and well perfused. Pulses equal. No JVD. GI: Soft, non-distended. Tenderness to the RUQ. No rebound or guarding. No masses. RECTAL: Deferred. MUSCULOSKELETAL: Atraumatic. Chest examination reveals no tenderness. The back is symmetrical on inspection without obvious abnormality. There is no CVA tenderness to palpation. No joint edema. LOWER EXTREMITIES: Calves are equal size bilaterally and non-tender. No edema. No discoloration. NEURO: Normal sensorium. No sensory or motor deficits noted. Course 09: Past medical records reviewed. The patient was evaluated in room A03, and a complete history and physical examination were performed. 1036: I spoke to Leann Hoang - General Surgery PAC about the patient's case. She agreed to be on consult. 1044: I spoke to Chelo DWYER about the patient's case. She also agreed to be on consult. 1053: I spoke to Mela Henley PAC under Dr. Kar Moore, about the patient's case. They are going to accept the patient for further evaluation. 1058: I reevaluated the patient and she is resting in bed. I updated her on results and discussed the treatment plan which she is agreeable to. Consultations Consultation #1: I spoke to Leann Hoang [facility] PAC about the patient's case. She agreed to be on consult. Time: 10:36 Consultation #2: I spoke to Chelo DWYER about the patient's case. She also agreed to be on consult. Time: 10:44 Consultation #3: I spoke to Mela Henley PAC under Dr. Kar Moore, about the patient's case. They are going to accept the patient for further evaluation. Time: 10:53 Administered Medications Lactated Ringer's (Lr) 1,000 mls @ 200 mls/hr IV .Q5H [facility] Stop: 03/16/19 12:59 Last Admin: 02/15/19 09:35 Dose: 200 mls/hr Documented by: [id number] Infusion: 02/15/19 09:25 Dose: 200 mls/hr Documented by: [id number] Admin: 02/15/19 04:25 Dose: 200 mls/hr Documented by: [id number] Infusion: 02/15/19 03:59 Dose: 200 mls/hr Documented by: [id number] Infusion: 02/15/19 02:23 Dose: 200 mls/hr Documented by: [id number] Infusion: 02/15/19 02:22 Dose: 0 mls/hr Documented by: [id number] Admin: 02/14/19 22:58 Dose: 200 mls/hr Documented by: [id number] Infusion: 02/14/19 22:47 Dose: 200 mls/hr Documented by: [id number] Admin: 02/14/19 17:47 Dose: 200 mls/hr Documented by: [id number] Infusion: 02/14/19 14:53 Dose: 0 mls/hr Documented by: [id number] Infusion: 02/14/19 14:18 Dose: 0 mls/hr Documented by: [id number] Admin: 02/14/19 13:03 Dose: 200 mls/hr Documented by: [id number] Famotidine 20 mg/ Syringe 5 mls @ 2.5 mls/min IV HS BESS Stop: 03/16/19 20:59 Last Admin: 02/14/19 20:34 Dose: 2.5 mls/min Documented by: [id number] Piperacillin Sod/Tazobactam (Sod 3.375 gm/ Dextrose) 115 mls @ 28.75 mls/hr IV Q8H BESS; Protocol Stop: 02/24/19 17:59 Last Admin: 02/15/19 10:19 Dose: 28.8 mls/hr Documented by: [id number] Cosigned by: [id number] Infusion: 02/15/19 06:31 Dose: 0 mls/hr Documented by: [id number] Admin: 02/15/19 02:23 Dose: 28.8 mls/hr Documented by: [id number] Infusion: 02/14/19 22:59 Dose: 0 mls/hr Documented by: [id number] Admin: 02/14/19 17:47 Dose: 28.8 mls/hr Documented by: [id number] Morphine Sulfate (Morphine Sulfate) 3 mg IV Q3H PRN PRN Reason: Pain Stop: 02/28/19 12:03 Last Admin: 02/15/19 11:44 Dose: 3 mg Documented by: [id number] Admin: 02/14/19 20:40 Dose: 3 mg Documented by: [id number] Admin: 02/14/19 17:55 Dose: 3 mg Documented by: [id number] Discontinued Medications Hydromorphone HCl (Dilaudid) 1 mg IV Q15M PRN PRN Reason: Pain Stop: 02/28/19 09:25 Last Admin: 02/14/19 09:38 Dose: 1 mg Documented by: [id number] Acetaminophen (Ofirmev) 1,000 mg in 100 mls @ 400 mls/hr IV NOW STA Stop: 02/14/19 09:40 Last Infusion: 02/14/19 09:56 Dose: 0 mls/hr Documented by: [id number] Admin: 02/14/19 09:38 Dose: 400 mls/hr Documented by: [id number] Cefoxitin Sodium (Mefoxin) 2,000 mg in 60 mls @ 100 mls/hr IV NOW STA Stop: 02/14/19 11:08 Last Infusion: 02/14/19 11:42 Dose: 0 mls/hr Documented by: [id number] Admin: 02/14/19 10:57 Dose: 100 mls/hr Documented by: [id number] Lactated Ringer's (Lr) 1,000 mls @ 999 mls/hr IV .Q1H1M ONE Stop: 02/14/19 13:00 Last Infusion: 02/14/19 14:18 Dose: 0 mls/hr Documented by: [id number] Admin: 02/14/19 13:03 Dose: 999 mls/hr Documented by: [id number] Piperacillin Sod/Tazobactam (Sod 4.5 gm/ Dextrose) 120 mls @ 200 mls/hr IV NOW ONE; Protocol Stop: 02/14/19 12:50 Last Infusion: 02/14/19 16:27 Dose: 0 mls/hr Documented by: [id number] Admin: 02/14/19 14:09 Dose: 200 mls/hr Documented by: [id number] Indomethacin (Indocin) 50 mg VA ONE ONE Stop: 02/14/19 14:02 Last Admin: 02/14/19 14:59 Dose: 100 mg Documented by: [id number] Ioversol (Optiray 320 100ml) 93 ml IV ONCE PRN PRN Reason: Interaction Checking Stop: 02/18/19 10:29 Last Admin: 02/14/19 10:30 Dose: 93 ml Documented by: [id number] Ondansetron HCl (Zofran) 4 mg IV NOW STA Stop: 02/14/19 09:27 Last Admin: 02/14/19 09:38 Dose: 4 mg Documented by: [id number] Medical Decision Making Differential Diagnosis Differential diagnoses includes but is not limited to gastritis, peptic ulcer disease, GERD, gallbladder disease, pancreatitis, small bowel obstruction, acute coronary syndrome, pericarditis, ischemic bowel, irritable bowel disease, irritable bowel syndrome, appendicitis, diverticulitis, malignancy, hernia, urinary tract infection, torsion, perforation, trauma, infectious. Medical Records Attestation: I reviewed the patient's medical records. Home Medications Current Medication List: was personally reviewed by me Laboratory Data Attestation: I reviewed the patient's lab results. Result diagrams: 02/15/19 04:41 02/15/19 04:41 Lab Results 02/14/19 02/14/19 02/14/19 Range/Units 09:30 09:30 10:35 WBC 18.20 H (4.8-10.8) K/uL RBC 5.58 H (4.2-5.4) M/uL Hgb 16.2 H (12.0-16.0) g/dL Hct 44.7 (37-47) % MCV 80.1 (80-100) fL MCH 29.0 (25-34) pg MCHC 36.2 H (32-36) g/dL RDW Std Deviation 38.2 (36.4-46.3) fL RDW Coeff of Reggie 13.0 (11.5-14.5) % Plt Count 286 (130-400) K/uL MPV 9.3 (7.4-10.4) fL Immature Gran % (Auto) 0.3 % Neut % (Auto) 87.7 % Lymph % (Auto) 7.0 % [place] % (Auto) 4.6 % Eos % (Auto) 0.2 % Baso % (Auto) 0.2 % Immature Gran # (Auto) 0.05 H (0.00-0.02) K/uL Neut # (Auto) 15.97 H (1.4-6.5) K/uL Lymph # (Auto) 1.27 (1.2-3.4) K/uL [place] # (Auto) 0.84 H (0.11-0.59) K/uL Eos # (Auto) 0.04 (0-0.5) K/uL Baso # (Auto) 0.03 (0-0.2) K/uL Sodium 136 (136-145) mmol/L Potassium TNP 4.1 Chloride 105 (98-107) mmol/L Carbon Dioxide 26 (21-32) mmol/L Anion Gap 5.0 (3-11) BUN 15 (7-18) mg/dl Creatinine 0.78 (0.6-1.2) mg/dl Est Cr Clr Drug Dosing 102.6 ml/min Est GFR ( Amer) 99.2 Est GFR (Non-Af Amer) 85.6 BUN/Creatinine Ratio 19.4 (10-20) Glucose 135 H (70-99) mg/dl Calcium 9.4 (8.5-10.1) mg/dl Total Bilirubin 2.3 H (0.2-1) mg/dl AST 439 H (15-37) U/L ALT 385 H (12-78) U/L Alkaline Phosphatase 182 H (45-117) U/L Total Protein 7.5 (6.4-8.2) gm/dl Albumin 3.8 (3.4-5.0) gm/dl Globulin 3.7 (2.5-4.0) gm/dl Albumin/Globulin Ratio 1.0 (0.9-2) Lipase 03809 H (73-393) U/L Imaging Data Radiologist's Impression: Radiology results as stated below per my review and the radiologist's interpretation: XR chest 1V not portable HISTORY: 53 years-old Female chest/upper abd pain acute atypical chest pain with upper abdominal pain COMPARISON: Chest radiograph 07/21/2018 TECHNIQUE: Portable AP view of the chest FINDINGS: The cardiac silhouette is upper limits of normal in size. Mediastinal contours appear unremarkable. No pneumothorax, pleural effusion, focal airspace consolidation or overt pulmonary edema. Degenerative changes of the shoulders and spine. IMPRESSION: No acute process. The above report was generated using voice recognition software. It may contain grammatical, syntax or spelling errors. Electronically signed by: Vinay Cabrera M.D. 02/14/2019 9:[address] abd pelvis IV con only CLINICAL HISTORY: 53 years-old Female presenting with Pt c/o RUQ abd pain. TECHNIQUE: Multidetector CT of the abdomen and pelvis was performed after the administration of intravenous contrast. IV contrast: 93 mL of Optiray 320. One or more dose lowering techniques were used consistent with the principles of ALARA (as low as reasonably achievable), including automatic exposure control, mA or kV adjustment to individual patient size, and/or use of iterative reconstruction. COMPARISON: None. CT DOSE (mGy.cm): The estimated cumulative dose is 1139.59 mGycm. FINDINGS: [employer] topogram: Unremarkable. Lung bases: Normal heart size. No pericardial or pleural effusion. Minimal dependent changes likely atelectasis. Liver: Normal morphology. Density suggestive of hepatic steatosis. No focal lesion. Patent hepatic vasculature. Biliary: No intrahepatic or extrahepatic biliary ductal dilatation. The gallbladder is distended with gallbladder wall thickening. No radiodense gallstones are evident in the gallbladder lumen or bile ducts. Pancreas: Significant peripancreatic fluid along both the ventral and dorsal aspects of the entire length of the pancreas. Exuberant periduodenal fluid with a focal collection measuring 3.7 cm. There is no hypoenhancing portion of the pancreatic parenchyma at this time. No pancreatic ductal dilatation. Extension of inflammatory changes into the lesser sac and mesentery as well as the periduodenal retroperitoneum. Spleen: Normal. The splenic artery and vein are patent and normal in caliber. Adrenal glands: Normal. Kidneys and ureters: Normal. No hydronephrosis. Bladder: Incompletely evaluated secondary to underdistention. Pelvic organs: Uterus and ovaries normal. Bowel: A few diverticula in the sigmoid colon. Extension of inflammatory changes into the transverse mesial colon without resultant wall thickening or stenosis of the transverse colon. The appendix is not visualized. No bowel obstruction. Mild gaseous distention of the distal esophagus. Mucosal hyperemia of the descending duodenum with mild if any wall thickening present likely on a secondary reactive basis. Peritoneal cavity: Small free fluid in the pelvis. Trace perihepatic ascites. Exuberant retroperitoneal fluid emanating from the pancreas as mentioned. No free intraperitoneal gas. Lymph nodes: No enlarged lymph nodes in the abdomen or pelvis. Vasculature: Aorta and IVC patent and normal in caliber. Abdominal wall: Normal. Musculoskeletal: Normal. IMPRESSION: 1. Moderate to severe interstitial edematous pancreatitis with acute peripancreatic fluid collection in the periduodenal region. No evidence of ne crosis or other complication at this time apart from significant surrounding inflammatory change. Suspected reactive secondary inflammatory change of the descending duodenum and gallbladder. Primary cholecystitis is considered unlikely. Ultrasound or MRCP could be obtained to evaluate for gallstones as the etiology for pancreatitis as no radiopaque gallstones are evident on this exam. Electronically signed by: Christiano Lima M.D. 02/14/2019 10:43 AM BILIARY ULTRASOUND CLINICAL HISTORY: Right upper quadrant abdominal pain COMPARISON STUDY: None FINDINGS: The pancreas appears sonographically normal. The liver appears sonographically normal. There are multiple gallstones. There is borderline gallbladder wall thickening. The gallbladder wall measures 4 mm. The technologist reports a negative sonographic [place] sign. There is no ductal dilatation. The common bile duct measures 5 mm. There is no right-sided hydronephrosis. IMPRESSION: Cholelithiasis with borderline gallbladder wall thickening. No evidence of ductal dilatation. Electronically signed by: Randall Manzanares M.D. 02/14/2019 10:25 AM ECG Data Attestation: I personally reviewed and interpreted this ECG as follows: Indication: + abdominal pain Rate (beats per minute): 63 Rhythm: + normal sinus ECG [place]: + Normal ECG ST segments: + Normal ST segments ECG Findings: + Other (QTC 446); no PACs and no PVCs Blood Pressure Blood Pressure Findings: Elevated blood pressure Blood Pressure Disposition: Referred to patients primary care provider MDM Narrative This is a 53-year-old female who presents emergency department complaining of epigastric pain. Pain has been ongoing since last evening. Patient was given Dilaudid for her pain here in the emergency department. She is found to have an elevation in her white blood cell count along with her lipase and liver enzymes. Based on this she was sent for CAT scan of the abdomen pelvis which was concerning for acute pancreatitis. I did discuss the case with the hospitalist service who agreed to admit the patient. Case was also discussed with the surgeon as well as the gastroenterology service. Patient was in agreement with the treatment plan. Impression & Plan Abdominal pain, Choledocholithiasis Discharge Plan Visit Data *Final* Discharge Date/Time: 02/14/19 11:51 Chief Complaint: Illness Stated Complaint: ACID REFLUX ED Provider: Hao Guillen Discharge Problem: Abdominal pain, Choledocholithiasis Patient Disposition: Admitted As Inpatient Discharge Instructions Interventions: ED Discharge Assessment Last Done: 02/14/19 11:51 Discharge Problem: Abdominal pain Qualifiers: Abdominal location: unspecified location Qualified Code(s): R10.9 - Unspecified abdominal pain The scribe's documentation has been prepared under my direction and personally reviewed by me in its entirety. I confirm that the note above accurately reflects all work, treatment, procedures, and medical decision making performed by me.
--- NOTE | 2019-02-14 16:00 | Fluoroscopy Report ---
[place] ERCP biliary ductal HISTORY: 53 years-old Female ERCP COMPARISON: CT abdomen and pelvis 02/14/2019 TECHNIQUE: 6 spot fluoroscopic images of the abdominal right upper quadrant were obtained utilizing 6 7.0 seconds fluoroscopy time FINDINGS: Endoscope noted within the duodenum. Cannulation of the common bile duct. Interval placement of commo n bile duct and pancreatic duct stents. On image 6 of series 7, there are multiple tiny filling defec ts noted within the distal common bile duct suggestive of air bubbles versus choledocholithiasis. The re is no significant intrahepatic or extrahepatic biliary ductal dilation. Contrast appears to extend into the cystic duct and gallbladder neck. No contrast extravasation. IMPRESSION: Fluoroscopic assistance as above. Please see procedural report for further details. The above report was generated using voice recognition software. It may contain grammatical, syntax o r spelling errors. Electronically signed by: Vinay Cabrera M.D. 02/14/2019 3:58 PM
--- NOTE | 2019-02-14 16:04 | Anesthesiology Progress Note ---
Date of Service February 14, 2019 Anesthesia Post Procedure Vital Signs Vital Signs: Temp Pulse Pulse Pulse Resp BP BP 02/14/19 15:55 36.3 C L 64 14 129/84 02/14/19 15:45 71 19 114/83 02/14/19 15:35 75 16 112/78 02/14/19 15:28 36.1 C L 75 17 133/87 02/14/19 14:00 36.7 C 62 20 152/86 H 02/14/19 12:06 36.6 C 61 18 167/93 H 02/14/19 11:51 66 17 126/79 02/14/19 11:30 61 17 135/115 H 02/14/19 08:42 36.3 C L 64 18 141/88 H Pulse Ox 02/14/19 15:55 97 02/14/19 15:45 99 02/14/19 15:35 100 02/14/19 15:28 100 02/14/19 14:00 94 02/14/19 12:06 96 02/14/19 11:51 94 02/14/19 11:30 96 02/14/19 08:42 97 Pain Intensity Abdomen: Pain Intensity: 2 Transfer of Care Handoff Completed per policy Notes Mental Status: alert / awake / arousable and participated in evaluation Patient Amnestic to Procedure: Yes Nausea / Vomiting: adequately controlled Pain: adequately controlled Airway Patency, RR, SpO2: stable & adequate BP & HR: stable & adequate Hydration State: stable & adequate Anesthetic Complications: no major complications apparent and Pt Satisfied with anesthetic care
--- NOTE | 2019-02-14 16:13 | GI REPORT ---
Patient Name: Cydney Neely Procedure Date: 02/14/2019 2:15 PM Date of : 1965 Admit Type: Inpatient Age: 53 Gender: Female Attending MD: Tk Lugo MD Procedure: Upper GI endoscopy Providers: Tk Lugo MD Referring MD: Luisito Lakhani M.d., Franklyn Zimmer MD, July Indications: Epigastric abdominal pain Medicines: General Anesthesia Complications: No immediate complications. Estimated Blood Loss: Estimated blood loss: none. Procedure: Pre-Anesthesia Assessment: - Prior to the procedure, a History and Physical was performed, and patient medications, allergies and sensitivities were reviewed. The patient's tolerance of previous anesthesia was reviewed. - The risks and benefits of the procedure and the sedation options and risks were discussed with the patient. All questions were answered and informed consent was obtained. - Patient identification and proposed procedure were verified prior to the procedure by the physician and the nurse. The procedure was verified in the procedure room. - Pre-procedure physical examination revealed no contraindications to sedation. After obtaining informed consent, the endoscope was passed under direct vision. Throughout the procedure, the patient's blood pressure, pulse, and oxygen saturations were monitored continuously. The Endoscope was introduced through the mouth, and advanced to the second part of duodenum. The upper GI endoscopy was accomplished without difficulty. The patient tolerated the procedure well. Findings: The examined esophagus was normal. A medium amount of food (residue) was found in the gastric fundus. The duodenal bulb and second portion of the duodenum were normal. Impression: - Normal esophagus. - A medium amount of food (residue) in the stomach. - Normal duodenal bulb and second portion of the duodenum. - No specimens collected. Recommendation: - Perform an ERCP today. Tk Lugo MD 02/14/2019 4:12:44 PM This report has been signed electronically. Note Initiated On: 02/14/2019 2:15 PM Number of Addenda: 0 I attest to the content of the Intraoperative Record and orders documented therein, exceptions below {[id number]}
--- NOTE | 2019-02-14 16:21 | GI REPORT ---
Patient Name: Cydney Neely Procedure Date: 02/14/2019 2:16 PM Date of : 1965 Admit Type: Inpatient Age: 53 Gender: Female Attending MD: Tk Lugo MD Procedure: ERCP Providers: Tk Lugo MD Referring MD: Luisito Lakhani M.d., Franklyn Zimmer MD, July Indications: Abnormal abdominal CT, Evaluation and possible treatment of bile duct stone(s), Suspected ascending cholangitis, Elevated liver enzymes, Gallstone associated acute pancreatitis Medicines: General Anesthesia, Indomethacin 100 mg [place] Complications: No immediate complications. Estimated Blood Loss: Estimated blood loss: none. Procedure: Pre-Anesthesia Assessment: - Prior to the procedure, a History and Physical was performed, and patient medications, allergies and sensitivities were reviewed. The patient's tolerance of previous anesthesia was reviewed. - The risks and benefits of the procedure and the sedation options and risks were discussed with the patient. All questions were answered and informed consent was obtained. - Patient identification and proposed procedure were verified prior to the procedure by the physician and the nurse. The procedure was verified in the procedure room. After obtaining informed consent, the scope was passed under direct vision. Throughout the procedure, the patient's blood pressure, pulse, and oxygen saturations were monitored continuously. The SCOPE was introduced through the mouth, and advanced to the duodenum and used to inject contrast into the bile duct. The ERCP was accomplished without difficulty. The patient tolerated the procedure well. Findings: The fitness sales consultant film was normal. The esophagus was successfully intubated under direct vision. The scope was advanced to a normal major papilla in the descending duodenum without detailed examination of the pharynx, larynx and associated structures, and upper GI tract. The upper GI tract was grossly normal. The ventral pancreatic duct was inadvertently cannulated with the short-nosed traction sphincterotome and guidewire without any complications. The wire was kept in place to assist in biliary ductal cannulation using a double wire technique. A 0.035 inch straight standard Acrobat wire was passed into the biliary tree. The Fusion OMNI sphincterotome was passed over the guidewire and the bile duct was then deeply cannulated. Contrast was injected. I personally interpreted the bile duct images. Ductal flow of contrast was adequate. Image quality was adequate. Contrast extended to the main bile duct. The main bile duct was mildly dilated. The largest diameter was 8 mm. The biliary orifice was stenotic. This appeared benign. Biliary sphincterotomy was made with a monofilament traction (standard) sphincterotome using ERBE electrocautery. There was no post-sphincterotomy bleeding. The biliary tree was swept with an 8.5 mm balloon starting at the bifurcation. Sludge and debris was swept from the duct. One 5 Fr by 9 cm plastic pancreatic stent with a single external pigtail and no internal flaps was placed into the ventral pancreatic duct. Clear fluid flowed through the stent. The stent was in good position. One 10 Fr by 7 cm plastic biliary stent with a single external flap and a single internal flap was placed into the common bile duct. Bile flowed through the stent. The stent was in good position. Indomethacin 100 mg was given via suppository to decrease the risk of post-ERCP pancreatitis (PEP). Impression: - Benign biliary papillary stenosis, treated with biliary sphincterotomy . - The biliary tree was swept and sludge and debris was found. - One plastic pancreatic stent was placed into the ventral pancreatic duct. - One plastic biliary stent was placed into the common bile duct. Recommendation: - Return patient to [facility] care. - Avoid aspirin and nonsteroidal anti-inflammatory medicines for 5 days. - Refer to a surgeon today for cholecystectomy. - Continue IV Hydration and ABx for now. - Repeat ERCP in 4 weeks to remove the stents. Tk Lugo MD 02/14/2019 4:20:54 PM This report has been signed electronically. Note Initiated On: 02/14/2019 2:16 PM Number of Addenda: 0 I attest to the content of the Intraoperative Record and orders documented therein, exceptions below {[id number]}
[2019-02-14] MEDS: PIPERACILLIN/TAZOBACTAM 3.375 GM in DEXTROSE 5% 100 ML IV SCH (17:47)
[2019-02-14] MEDS: MoRPHine SULFATE 4 MG/ML 1 ML CARP\\VIAL IV PRN ×2 (17:55→20:40)
[2019-02-14] MEDS: FAMOTIDINE 20 MG in SYRINGE 3 ML IV SCH (20:34)
[2019-02-15] MEDS: PIPERACILLIN/TAZOBACTAM 3.375 GM in DEXTROSE 5% 100 ML IV SCH ×3 (02:23→18:44)
[2019-02-15] MEDS: LACTATED RINGER'S 1,000 ML IV SCH ×4 (04:25→20:24)
[2019-02-15 05:16] LABS: Basophils # (auto) 0.01 K/uL (0-0.2); Basophils % (auto) 0.1 %; Eosinophils # (auto) 0.18 K/uL (0-0.5); Eosinophils % (auto) 1.5 %; Hematocrit (blood only) 38.3 % (37-47); Hemoglobin 13.5 g/dL (12.0-16.0); Immature Granulocytes # (auto) 0.03 K/uL (0.00-0.02); Immature Granulocytes % (auto) 0.2 %; Lymphocytes # (auto) 1.38 K/uL (1.2-3.4); Lymphocytes % (auto) 11.1 %; Mean Corpuscular Hemoglobin 28.4 pg (25-34); Mean Corpuscular Hgb Conc 35.2 g/dL (32-36); Mean Corpuscular Volume 80.6 fL (80-100); Mean Platelet Volume 9.5 fL (7.4-10.4); Monocytes # (auto) 0.78 K/uL (0.11-0.59); Monocytes % (auto) 6.3 %; Neutrophils % (auto) 80.8 %; Platelet Count 213 K/uL (130-400); RDW Coefficient of Variation 13.2 % (11.5-14.5); RDW Standard Deviation 38.8 fL (36.4-46.3); Red Blood Count 4.75 M/uL (4.2-5.4); White Blood Count 12.38 K/uL (4.8-10.8)
[2019-02-15 05:49] LABS: Albumin Level 2.8 gm/dl (3.4-5.0); BUN Creatinine Ratio 18.3 (10-20); Bilirubin Direct 0.8 mg/dl (0-0.2); Calcium 8.3 mg/dl (8.5-10.1); Est GFR (African American) 120.3; Est GFR (Non-African American) 103.8; Potassium 3.6 mmol/L (3.5-5.1)
[2019-02-15 05:56] LABS: Albumin Globulin Ratio 0.9 (0.9-2); Bilirubin,Total 1.6 mg/dl (0.2-1); Globulin 3.1 gm/dl (2.5-4.0); Total Protein 5.9 gm/dl (6.4-8.2)
--- NOTE | 2019-02-15 06:55 | Gastroenterology Progress Note ---
Date of Service February 15, 2019 Assessment & Plan (1) Choledocholithiasis: 1. Continue antibiotics 2. No NSAIDs x 5 days. 3. Eventual cholecystectomy. 4. If no surgery planned for today, then may have clear liquids po. 5. ERCP 4 weeks for removal of CBD and pancreatic stents. Our office will contact her to arrange. Present on Admission?: Yes Supervising Physician Co-Signing Physician Notes I performed a history and physical examination of the patient, including specifically on physical exam - soft, nontender abdomen. I have discussed the patient's management with Chelo. Please refer to the nurse practitioner's note for the documented findings and plan of care. Feels hungry, no abdominal pain, passing gas. Planned for Lap maya on . Can have clears from my stand point. Recall GI if needed. Subjective Ms. Cydney Neely is a 53 yr old female who presented yesterday with gallstone pancreatitis. She is Post procedure day #1 from ERCP with sphincterotomy, sweeping for sludge/debris and pancreatic/biliary stents were placed. Afebrile. WBC 18->13, Lipase 28K -> 9k, T bili 2.3 ->1.6, ALT 385 ->414, Alk Phos 182 ->200. Today, no severe pain though has diffuse abdomen bloating, "gassiness." Has ambulated in the chan. Review of Systems Review of Systems: ROS: Gen: Denies weakness, fevers, weight loss Eyes: No icterus, eye redness, or pain, no recent vision changes Resp: No SOB, no cough Cardio: No palpitations/irregular beats, no chest pain GI: + abdominal pain, no nausea/vomiting : No dark urine, no hematemesis, denies pain on urination Skin: No jaundice, itching or new rashes Physical Exam Constitutional: WD/WN, vitals as above Eyes: PERRL, conjunctivae normal, anicteric sclerae ENMT: external ear and nose normal, oropharynx normal Neck: trachea midline, no thyromegaly Respiratory: normal respiratory effort, lungs clear to auscultation Cardiovascular: RRR, no murmur, no edema Gastrointestinal (Abdomen): Inspection/Auscultation: abdomen normal to inspection and + hypoactive bowel sounds Percussion/Palpation: + abdomen tender (diffusely; epigastric area only tender with deep palpation) and abdomen soft; no guarding and abdomen not rigid Skin: no rashes, warm and dry no jaundice Neurologic: PERRL, EOMI, accommodation nl, no face palsy, no dysarthria Psychiatric: A+Ox3, euthymic affect Lymphatic: no cervical or axillary lymphadenopathy Results & Data Vital Signs (Past 12 Hours) Vital Signs Temp Pulse Pulse Resp BP Pulse Ox 02/15/19 02:27 37 C 70 16 146/85 H 96 02/14/19 23:09 36.6 C 66 18 133/85 93 02/14/19 19:33 36.4 C L 63 18 160/98 H 92
--- NOTE | 2019-02-15 08:15 | Anesthesiology Progress Note ---
Date of Service February 15, 2019 Anesthesia Post Procedure Vital Signs Vital Signs: Temp Pulse Pulse Pulse Resp BP BP 02/15/19 07:39 36.7 C 72 18 134/84 02/15/19 02:27 37 C 70 16 146/85 H 02/14/19 23:09 36.6 C 66 18 133/85 02/14/19 19:33 36.4 C L 63 18 160/98 H 02/14/19 18:17 36.6 C 62 17 151/90 H 02/14/19 17:20 36.3 C L 68 17 173/92 H 02/14/19 16:54 36.3 C L 59 L 18 149/84 H 02/14/19 16:20 36.4 C L 64 16 132/83 02/14/19 16:05 63 20 02/14/19 15:55 36.3 C L 64 14 02/14/19 15:45 71 19 02/14/19 15:35 75 16 02/14/19 15:28 36.1 C L 75 17 02/14/19 14:00 36.7 C 62 20 02/14/19 12:06 36.6 C 61 18 02/14/19 11:51 66 17 126/79 02/14/19 11:30 61 17 02/14/19 08:42 36.3 C L 64 18 141/88 H BP Pulse Ox 02/15/19 07:39 96 02/15/19 02:27 96 02/14/19 23:09 93 02/14/19 19:33 92 02/14/19 18:17 98 02/14/19 17:20 99 02/14/19 16:54 98 02/14/19 16:20 99 02/14/19 16:05 128/76 99 02/14/19 15:55 129/84 97 02/14/19 15:45 114/83 99 02/14/19 15:35 112/78 100 02/14/19 15:28 133/87 100 02/14/19 14:00 152/86 H 94 02/14/19 12:06 167/93 H 96 02/14/19 11:51 94 02/14/19 11:30 135/115 H 96 02/14/19 08:42 97 Pain Intensity Abdomen: Pain Intensity: 2 Notes Mental Status: alert / awake / arousable Patient Amnestic to Procedure: Yes Nausea / Vomiting: adequately controlled Pain: adequately controlled Airway Patency, RR, SpO2: stable & adequate BP & HR: stable & adequate Hydration State: stable & adequate Anesthetic Complications: no major complications apparent
--- NOTE | 2019-02-15 09:11 | Surgery Progress Note ---
Date of Service February 15, 2019 Assessment & Plan (1) Gallstone pancreatitis: 53 year-old female presented to ED with abdominal pain, nausea, and vomiting that started evening prio to admission. CT scan showing acute pancreatitis with moderate interstitial edema and fluid collection near the duodenum. No necrosis. US showing gallstones and mild gallbladder wall thickening. Leukocytosis of 18K. T. bili at 2.3, AST 439, ALT 385, ALK 182, Lipase 13051 POD # 1 s/p ERCP with biliary stent placement for choledocholithiasis t. bili 2.3 --> 1.6 AST 439 --> 285 ALT 385 --> 415 ALK 182 --> 203 Lipase 28.353 --> 9173 Plan: Given acute pancreatitis with moderate to severe inflammation and fluid collection recommend conservative measures to allow pancreatitis to improve prior to entertaining cholecystectomy. Will tentatively plan for cholecystectomy on Continue IV Abx Continue IV fluid hydration Continue IV pain management and Zofran prn pain and nausea keep NPO for now given gas and moderate pain on examination encourage ambulation given belching and gas continue medical management Dr. Zimmer as seen and examined pt, agrees with above. Subjective having more gas pains +belching upper abdominal pain seems to start coming back no n/v Physical Exam Constitutional: WD/WN, vitals as above + obese; no acute distress Gastrointestinal (Abdomen): Inspection/Auscultation: abdomen normal to inspection; abdomen not distended Percussion/Palpation: + abdomen tender (epigastrium and LUQ) and abdomen soft; no guarding and abdomen not rigid Skin: no rashes, warm and dry Psychiatric: A+Ox3, euthymic affect Results & Data Vital Signs (Past 12 Hours) Vital Signs Temp Pulse Pulse Resp BP Pulse Ox 02/15/19 07:39 36.7 C 72 18 134/84 96 02/15/19 02:27 37 C 70 16 146/85 H 96 02/14/19 23:09 36.6 C 66 18 133/85 93 Laboratory Results 02/15/19 02/15/19 02/14/19 Range/Units 04:41 04:41 10:35 WBC 12.38 H (4.8-10.8) K/uL RBC 4.75 (4.2-5.4) M/uL Hgb 13.5 (12.0-16.0) g/dL Hct 38.3 (37-47) % MCV 80.6 (80-100) fL MCH 28.4 (25-34) pg MCHC 35.2 (32-36) g/dL RDW Std Deviation 38.8 (36.4-46.3) fL RDW Coeff of Reggie 13.2 (11.5-14.5) % Plt Count 213 (130-400) K/uL MPV 9.5 (7.4-10.4) fL Immature Gran % (Auto) 0.2 % Neut % (Auto) 80.8 % Lymph % (Auto) 11.1 % [place] % (Auto) 6.3 % Eos % (Auto) 1.5 % Baso % (Auto) 0.1 % Immature Gran # (Auto) 0.03 H (0.00-0.02) K/uL Neut # (Auto) 10.00 H (1.4-6.5) K/uL Lymph # (Auto) 1.38 (1.2-3.4) K/uL [place] # (Auto) 0.78 H (0.11-0.59) K/uL Eos # (Auto) 0.18 (0-0.5) K/uL Baso # (Auto) 0.01 (0-0.2) K/uL Sodium 138 (136-145) mmol/L Potassium 3.6 4.1 Chloride 105 (98-107) mmol/L Carbon Dioxide 26 (21-32) mmol/L Anion Gap 7.0 (3-11) BUN 11 (7-18) mg/dl Creatinine 0.58 L (0.6-1.2) mg/dl Est Cr Clr Drug Dosing 138.0 ml/min Est GFR ( Amer) 120.3 Est GFR (Non-Af Amer) 103.8 BUN/Creatinine Ratio 18.3 (10-20) Glucose 98 (70-99) mg/dl Calcium 8.3 L (8.5-10.1) mg/dl Total Bilirubin 1.6 H (0.2-1) mg/dl Direct Bilirubin 0.8 H (0-0.2) mg/dl AST 285 H 439 H (15-37) U/L ALT 414 H (12-78) U/L Alkaline Phosphatase 203 H (45-117) U/L Total Protein 5.9 L D (6.4-8.2) gm/dl Albumin 2.8 L (3.4-5.0) gm/dl Globulin 3.1 (2.5-4.0) gm/dl Albumin/Globulin Ratio 0.9 (0.9-2) Lipase 9173 H (73-393) U/L 02/14/19 02/14/19 Range/Units 09:30 09:30 WBC 18.20 H (4.8-10.8) K/uL RBC 5.58 H (4.2-5.4) M/uL Hgb 16.2 H (12.0-16.0) g/dL Hct 44.7 (37-47) % MCV 80.1 (80-100) fL MCH 29.0 (25-34) pg MCHC 36.2 H (32-36) g/dL RDW Std Deviation 38.2 (36.4-46.3) fL RDW Coeff of Reggie 13.0 (11.5-14.5) % Plt Count 286 (130-400) K/uL MPV 9.3 (7.4-10.4) fL Immature Gran % (Auto) 0.3 % Neut % (Auto) 87.7 % Lymph % (Auto) 7.0 % [place] % (Auto) 4.6 % Eos % (Auto) 0.2 % Baso % (Auto) 0.2 % Immature Gran # (Auto) 0.05 H (0.00-0.02) K/uL Neut # (Auto) 15.97 H (1.4-6.5) K/uL Lymph # (Auto) 1.27 (1.2-3.4) K/uL [place] # (Auto) 0.84 H (0.11-0.59) K/uL Eos # (Auto) 0.04 (0-0.5) K/uL Baso # (Auto) 0.03 (0-0.2) K/uL Sodium 136 (136-145) mmol/L Potassium TNP Chloride 105 (98-107) mmol/L Carbon Dioxide 26 (21-32) mmol/L Anion Gap 5.0 (3-11) BUN 15 (7-18) mg/dl Creatinine 0.78 (0.6-1.2) mg/dl Est Cr Clr Drug Dosing 102.6 ml/min Est GFR ( Amer) 99.2 Est GFR (Non-Af Amer) 85.6 BUN/Creatinine Ratio 19.4 (10-20) Glucose 135 H (70-99) mg/dl Calcium 9.4 (8.5-10.1) mg/dl Total Bilirubin 2.3 H (0.2-1) mg/dl Direct Bilirubin (0-0.2) mg/dl AST (15-37) U/L ALT 385 H (12-78) U/L Alkaline Phosphatase 182 H (45-117) U/L Total Protein 7.5 (6.4-8.2) gm/dl Albumin 3.8 (3.4-5.0) gm/dl Globulin 3.7 (2.5-4.0) gm/dl Albumin/Globulin Ratio 1.0 (0.9-2) Lipase 01412 H (73-393) U/L
[2019-02-15] MEDS: MoRPHine SULFATE 4 MG/ML 1 ML CARP\\VIAL IV PRN (11:44)
[2019-02-15] MEDS ORDERED: ACETAMINOPHEN 1,000 MG/100 ML VIAL IV ONE (16:07)
[2019-02-15] MEDS: FAMOTIDINE 20 MG in SYRINGE 3 ML IV SCH (20:24)
--- NOTE | 2019-02-15 22:50 | Hospitalist Progress Note ---
Date of Service February 15, 2019 Assessment & Plan (1) Gallstone pancreatitis: Presented to ED with abdominal pain, nausea, vomiting. WBC 18,200. Total bilirubin 2.3, AST 439, ALT 385, alkaline phosphatase 182, lipase 20,353. Ultrasound of abdomen demonstrated cholelithiasis with borderline gallbladder wall thickening, no evidence of ductal dilatation. CT of abdomen and pelvis demonstrated moderate to severe interstitial edema of pancreas with acute peripancreatic fluid in the periduodenal region, no evidence of necrosis, suspected reactive secondary inflammatory changes of the descending duodenum and gallbladder, primary cholecystitis considered unlikely. Most likely diagnosis gallstone pancreatitis. Initial management consisted of bowel rest, IV fluids, analgesics, antiemetics. GI and General Surgery consulted. ERCP with sphincterotomy, extraction of sludge and debris, and biliary stent placement performed. Cholecystectomy anticipated once acute pancreatitis has improved. (2) Choledocholithiasis: As noted above. (3) Cholelithiasis: As noted above. (4) GERD (gastroesophageal reflux disease): Acid suppression with IV famotidine. (5) DVT prophylaxis: No anticoagulants at this time due to invasive procedures. SCDs. Ambulate. (6) Discharge planning issues: Anticipated discharge to home. Primary care follow-up with Dolores Clifford PA-C. Subjective Recheck for gallstone pancreatitis. Patient seen in their room around 1550. Admitted yesterday with abdominal pain. Evaluation consistent with gallstone pancreatitis. GI and General Surgery consulted. ERCP performed. Sphincterotomy performed. Found to have sludge and debris and bile duct; biliary stents were placed. Having some nausea, abdominal bloating and discomfort. Review of Systems: Constitutional- no fever. Cardiac- no chest pain. Pulmonary- no cough or SOB. GI- as noted above. - no urinary symptoms. Otherwise, as noted above. Physical Exam Constitutional: no acute distress Eyes: + anicteric sclerae Respiratory: no respiratory distress Auscultation: lungs clear to auscultation bilaterally Cardiovascular: Rate/Rhythm: regular rate and regular rhythm Heart Sounds: no gallop, no murmur and no cardiac rub Vessels: no JVD Extremities: no calf tenderness and no edema Gastrointestinal (Abdomen): Inspection/Auscultation: + abdomen distended; + abnormal bowel sounds Percussion/Palpation: + abdomen tender (diffuse, mild) and abdomen soft Skin: no rashes, warm and dry Psychiatric: Orientation: alert and oriented x 3 Results & Data Vital Signs (Past 12 Hours) Vital Signs Temp Pulse Resp BP Pulse Ox 02/15/19 15:08 37.4 C 86 17 142/84 H 3 L 02/15/19 11:36 37 C 82 20 137/82 91 02/15/19 11:20 36.5 C 79 16 140/86 92 Laboratory Results Laboratory Results - last 24 hr 02/15/19 02/15/19 04:41 04:41 WBC 12.38 H RBC 4.75 Hgb 13.5 Hct 38.3 MCV 80.6 MCH 28.4 MCHC 35.2 RDW Std Deviation 38.8 RDW Coeff of Reggie 13.2 Plt Count 213 MPV 9.5 Immature Gran % (Auto) 0.2 Neut % (Auto) 80.8 Lymph % (Auto) 11.1 [place] % (Auto) 6.3 Eos % (Auto) 1.5 Baso % (Auto) 0.1 Immature Gran # (Auto) 0.03 H Neut # (Auto) 10.00 H Lymph # (Auto) 1.38 [place] # (Auto) 0.78 H Eos # (Auto) 0.18 Baso # (Auto) 0.01 Sodium 138 Potassium 3.6 Chloride 105 Carbon Dioxide 26 Anion Gap 7.0 BUN 11 Creatinine 0.58 L Est Cr Clr Drug Dosing 138.0 Est GFR ( Amer) 120.3 Est GFR (Non-Af Amer) 103.8 BUN/Creatinine Ratio 18.3 Glucose 98 Calcium 8.3 L Total Bilirubin 1.6 H Direct Bilirubin 0.8 H AST 285 H ALT 414 H Alkaline Phosphatase 203 H Total Protein 5.9 L D Albumin 2.8 L Globulin 3.1 Albumin/Globulin Ratio 0.9 Lipase 9173 H
[2019-02-16] MEDS: LACTATED RINGER'S 1,000 ML IV SCH ×4 (01:34→17:12)
[2019-02-16] MEDS: PIPERACILLIN/TAZOBACTAM 3.375 GM in DEXTROSE 5% 100 ML IV SCH ×3 (01:34→18:10)
[2019-02-16 06:55] LABS: Basophils # (auto) 0.02 K/uL (0-0.2); Basophils % (auto) 0.1 %; Eosinophils # (auto) 0.18 K/uL (0-0.5); Eosinophils % (auto) 1.3 %; Hematocrit (blood only) 36.4 % (37-47); Hemoglobin 12.7 g/dL (12.0-16.0); Immature Granulocytes # (auto) 0.05 K/uL (0.00-0.02); Immature Granulocytes % (auto) 0.4 %; Lymphocytes # (auto) 1.35 K/uL (1.2-3.4); Lymphocytes % (auto) 9.6 %; Mean Corpuscular Hemoglobin 28.4 pg (25-34); Mean Corpuscular Hgb Conc 34.9 g/dL (32-36); Mean Corpuscular Volume 81.4 fL (80-100); Mean Platelet Volume 9.4 fL (7.4-10.4); Monocytes % (auto) 7.1 %; Neutrophils # (auto) 11.51 K/uL (1.4-6.5); Neutrophils % (auto) 81.5 %; Platelet Count 189 K/uL (130-400); RDW Coefficient of Variation 13.4 % (11.5-14.5); RDW Standard Deviation 40.1 fL (36.4-46.3); Red Blood Count 4.47 M/uL (4.2-5.4); White Blood Count 14.11 K/uL (4.8-10.8)
[2019-02-16 07:30] LABS: Albumin Globulin Ratio 0.8 (0.9-2); Albumin Level 2.8 gm/dl (3.4-5.0); BUN Creatinine Ratio 11.5 (10-20); Bilirubin,Total 1.2 mg/dl (0.2-1); Calcium 8.4 mg/dl (8.5-10.1); Creatinine Clr Calc Pharmacy 163.3 ml/min; Est GFR (African American) 127.1; Est GFR (Non-African American) 109.7; Globulin 3.5 gm/dl (2.5-4.0); Potassium 3.3 mmol/L (3.5-5.1); Total Protein 6.3 gm/dl (6.4-8.2)
--- NOTE | 2019-02-16 08:08 | Surgery Progress Note ---
Date of Service February 16, 2019 Assessment & Plan (1) Cholelithiasis: Patient with gallstone pancreatitis status post ERCP Upper abdominal pain is decreased White blood cell count increase just a little bit today Planning for laparoscopic cholecystectomy tomorrow I discussed the possible need to convert to an open procedure with her. I discussed the possible complications of the procedures and answered her questions and she has signed a consent form. Subjective Less upper abdominal pain today Feels like she has to pass gas Denies nausea and vomiting Physical Exam Gastrointestinal (Abdomen): Inspection/Auscultation: normal bowel sounds; abdomen not distended Percussion/Palpation: + abdomen tender (Less tenderness in the upper abdomen) and abdomen soft Results & Data Vital Signs (Past 12 Hours) Vital Signs Temp Pulse Resp BP BP Pulse Ox 02/16/19 07:37 37.1 C 83 17 149/86 H 93 02/15/19 22:50 36.5 C 82 16 150/86 H 91 Laboratory Results 02/16/19 02/16/19 Range/Units 06:36 06:36 WBC 14.11 H (4.8-10.8) K/uL RBC 4.47 (4.2-5.4) M/uL Hgb 12.7 (12.0-16.0) g/dL Hct 36.4 L (37-47) % MCV 81.4 (80-100) fL MCH 28.4 (25-34) pg MCHC 34.9 (32-36) g/dL RDW Std Deviation 40.1 (36.4-46.3) fL RDW Coeff of Reggie 13.4 (11.5-14.5) % Plt Count 189 (130-400) K/uL MPV 9.4 (7.4-10.4) fL Immature Gran % (Auto) 0.4 % Neut % (Auto) 81.5 % Lymph % (Auto) 9.6 % [place] % (Auto) 7.1 % Eos % (Auto) 1.3 % Baso % (Auto) 0.1 % Immature Gran # (Auto) 0.05 H (0.00-0.02) K/uL Neut # (Auto) 11.51 H (1.4-6.5) K/uL Lymph # (Auto) 1.35 (1.2-3.4) K/uL [place] # (Auto) 1.00 H (0.11-0.59) K/uL Eos # (Auto) 0.18 (0-0.5) K/uL Baso # (Auto) 0.02 (0-0.2) K/uL Sodium 139 (136-145) mmol/L Potassium 3.3 L (3.5-5.1) mmol/L Chloride 106 (98-107) mmol/L Carbon Dioxide 28 (21-32) mmol/L Anion Gap 5.0 (3-11) BUN 6 L D (7-18) mg/dl Creatinine 0.49 L (0.6-1.2) mg/dl Est Cr Clr Drug Dosing 163.3 ml/min Est GFR ( Amer) 127.1 Est GFR (Non-Af Amer) 109.7 BUN/Creatinine Ratio 11.5 (10-20) Glucose 82 (70-99) mg/dl Calcium 8.4 L (8.5-10.1) mg/dl Total Bilirubin 1.2 H (0.2-1) mg/dl AST 96 H (15-37) U/L ALT 226 H (12-78) U/L Alkaline Phosphatase 201 H (45-117) U/L Total Protein 6.3 L (6.4-8.2) gm/dl Albumin 2.8 L (3.4-5.0) gm/dl Globulin 3.5 (2.5-4.0) gm/dl Albumin/Globulin Ratio 0.8 L (0.9-2) Lipase 1782 H (73-393) U/L
[2019-02-16] MEDS ORDERED: POTASSIUM CHLORIDE 20 MEQ TABCR PO STA (09:43)
--- NOTE | 2019-02-16 17:00 | Anesthesiology Consultation ---
Date of Service February 16, 2019 Assessment & Plan (1) Encounter for pre-operative examination: Chart Review Chart Review: Acceptable Risk for Surgery History Surgery Operation Date: 02/14/19 14:05 Proposed Procedures p Endoscopic Retrograde Cholangiopancreatogram - Tk Lugo MD Operation Date: 02/17/19 12:25 Proposed Procedures p Laparoscopic Cholecystectomy - Franklyn Zimmer MD Height/Weight Height: 5 ft 7 in Weight: 107 kg Allergies Allergy/AdvReac Type Severity Reaction Status Date / Time Sulfa (Sulfonamide Allergy Severe HIVES Verified 02/14/19 10:03 Antibiotics) sulfamethoxazole Allergy Severe Verified 02/14/19 10:03 Medications Home Medications Medication Instructions Recorded Confirmed Last Taken cyclobenzaprine 5 mg PO TID PRN 02/14/19 02/14/19 Unknown diphenhydramine HCl [Benadryl] 50 mg PO HS PRN 02/14/19 02/14/19 Unknown pantoprazole 40 mg PO HS 02/14/19 02/14/19 02/13/19 ranitidine HCl 300 mg PO HS 02/14/19 02/14/19 02/13/19 triamcinolone acetonide [Nasacort] 2 spray INTRANASAL DAILY PRN 02/14/19 02/14/19 Unknown Active Medications Generic Name Dose Route Start Last Admin Trade Name Freq PRN Reason Stop Dose Admin Lactated Ringer's 1,000 mls @ 100 mls/hr 02/14/19 13:00 02/16/19 14:33 Lr IV 03/16/19 12:59 100 mls/hr .Q10H BESS Infusion Famotidine 20 mg/ Syringe 5 mls @ 2.5 mls/min 02/14/19 21:00 02/15/19 20:24 IV 03/16/19 20:59 2.5 mls/min HS BESS Administration Piperacillin Sod/Tazobactam 115 mls @ 28.75 mls/hr 02/14/19 18:00 02/16/19 14:33 Sod 3.375 gm/ Dextrose IV 02/24/19 17:59 Infused Q8H BESS Infusion Protocol Morphine Sulfate 3 mg 02/14/19 12:04 02/15/19 11:44 Morphine Sulfate IV 02/28/19 12:03 3 mg Q3H PRN Administration Pain NPO Date Last Intake of Fluids: 02/13/19 Time Last Intake of Fluids: 22:00 Date Last Intake of Solids: 02/13/19 Time Last Intake of Solids: 21:00 Past Medical History Medical History BEAU (obstructive sleep apnea) (Chronic) Not on CPAP Obesity (Chronic) Recurrent sinusitis (Chronic) GERD (gastroesophageal reflux disease) (Chronic) No pertinent past medical history Past Family History Family History Grandfather (Maternal) Stroke Brother Diabetes Other Cancer Past Surgical History Surgical History History of arthroscopy of knee (Chronic) History of arthroscopy of shoulder (Chronic) History of (Chronic) x 3 History of ERCP No pertinent past surgical history Social History Smoking Status: Never smoker Hx Alcohol Use: Yes (1 glass wine once a month) Hx Substance Use: No Physical Exam Vital Signs Last Vital Signs Temp 37.5 C 02/16/19 15:16 Pulse 87 02/16/19 15:16 Resp 17 02/16/19 15:16 BP 149/87 H 02/16/19 15:16 Pulse Ox 94 02/16/19 15:16 Testing Laboratory Results 02/16/19 06:36 02/16/19 06:36 02/14/19 12:21 Aerobic Blood Culture - Preliminary Blood No growth in Aerobic bottle after 48 hours. Anaerobic Blood Culture - Preliminary No growth in Anaerobic bottle after 48 hours. 02/14/19 12:07 Aerobic Blood Culture - Preliminary Blood No growth in Aerobic bottle after 48 hours. Anaerobic Blood Culture - Preliminary No growth in Anaerobic bottle after 48 hours. Electrocardiogram Date: 02/14/19 Findings: + NSR @ (63) Chest X-Ray Date: 02/14/19 Findings: + NAD
--- NOTE | 2019-02-16 19:32 | Hospitalist Progress Note ---
Date of Service February 16, 2019 Assessment & Plan (1) Gallstone pancreatitis: --CT ABD: demonstrated moderate to severe interstitial edema of pancreas with acute peripancreatic fluid in the periduodenal region, no evidence of necrosis, suspected reactive secondary inflammatory changes of the descending duodenum and gallbladder, primary cholecystitis considered unlikely. --ABD Ultrasound:demonstrated cholelithiasis with borderline gallbladder wall thickening, no evidence of ductal dilatation. --S/P ERCP with sphincterotomy, extraction of sludge and debris, and biliary stent placement performed. --LFTs, lipase trending down --Clear liquid diet --IV fluids, antiemetics, pain control, IV zosyn --N.p.o. after midnight for lap maya tomorrow Appreciate GI, surgery input (2) Choledocholithiasis: Management as above (3) Cholelithiasis: Management as above (4) GERD (gastroesophageal reflux disease): On IV famotidine. (5) DVT prophylaxis: SCDs for now Code Status Full Code (6) Discharge planning issues: Expect to discharge home in stable Subjective Patient is seen and examined at bedside States having bloating/pressure-like sensation LLQ abdominal discomfort Denies any chest pain, shortness of breath, dizziness, nausea, vomiting Plan for laparoscopic cholecystectomy tomorrow Review of Systems Review of Systems: All systems reviewed & are unremarkable except as noted in HPI & below Physical Exam Physical Exam: Physical Exam: Vitals signs as noted above General Appearance:Moderately built and nourished, no apparent distress Head: normocephalic, Atraumatic Eyes: normal inspection, EOMI, PERRL Neck: supple, Trachea midline Respiratory/Chest: Normal breath sounds, CTA, No accessory muscle use Cardiovascular: S1, S2, No murmur Abdomen/GI:Soft, mild epigastric tender, Bowel sounds present Extremities/Musculoskelatal:normal inspection, no edema Neurologic/Psych:AAOX3, grossly no focal neurological deficits Skin: normal color, warm Results & Data Vital Signs (Past 12 Hours) Vital Signs Temp Pulse Pulse Pulse Resp BP BP 02/16/19 15:16 37.5 C 87 87 87 17 149/87 H 02/16/19 11:48 36.7 C 84 17 163/95 H 02/16/19 07:37 37.1 C 83 17 149/86 H Pulse Ox 02/16/19 15:16 94 02/16/19 11:48 93 02/16/19 07:37 93 Laboratory Results Short CBC 02/16/19 Range/Units 06:36 WBC 14.11 H (4.8-10.8) K/uL Hgb 12.7 (12.0-16.0) g/dL Hct 36.4 L (37-47) % Plt Count 189 (130-400) K/uL BMP 02/16/19 06:36 Sodium 139 Potassium 3.3 L Chloride 106 Carbon Dioxide 28 BUN 6 L D Creatinine 0.49 L Glucose 82 Calcium 8.4 L Liver Function 02/16/19 Range/Units 06:36 Total Bilirubin 1.2 H (0.2-1) mg/dl AST 96 H (15-37) U/L ALT 226 H (12-78) U/L Alkaline Phosphatase 201 H (45-117) U/L Albumin 2.8 L (3.4-5.0) gm/dl
[2019-02-16] MEDS: FAMOTIDINE 20 MG in SYRINGE 3 ML IV SCH (20:49)
[2019-02-17] MEDS: PIPERACILLIN/TAZOBACTAM 3.375 GM in DEXTROSE 5% 100 ML IV SCH ×3 (02:09→18:54)
[2019-02-17] MEDS: MoRPHine SULFATE 4 MG/ML 1 ML CARP\\VIAL IV PRN ×3 (03:59→22:09)
[2019-02-17] MEDS: LACTATED RINGER'S 1,000 ML IV SCH (06:17)
[2019-02-17 06:26] LABS: Hematocrit (blood only) 35.9 % (37-47); Hemoglobin 12.4 g/dL (12.0-16.0); Mean Corpuscular Hemoglobin 28.2 pg (25-34); Mean Corpuscular Hgb Conc 34.5 g/dL (32-36); Mean Corpuscular Volume 81.6 fL (80-100); Mean Platelet Volume 9.9 fL (7.4-10.4); Platelet Count 202 K/uL (130-400); RDW Coefficient of Variation 13.5 % (11.5-14.5); RDW Standard Deviation 40.7 fL (36.4-46.3); White Blood Count 14.52 K/uL (4.8-10.8)
--- NOTE | 2019-02-17 06:31 | Surgery Progress Note ---
Date of Service February 17, 2019 Assessment & Plan (1) Gallstone pancreatitis: Planning for laparoscopic cholecystectomy today The procedure was previously discussed with her Subjective Awake and alert Less pain today Denies nausea Physical Exam Gastrointestinal (Abdomen): Inspection/Auscultation: abdomen not distended Percussion/Palpation: + abdomen tender Results & Data Vital Signs (Past 12 Hours) Vital Signs Temp Pulse Resp BP Pulse Ox 02/16/19 23:12 37.1 C 76 20 162/81 H 93 Laboratory Results 02/17/19 02/17/19 02/16/19 Range/Units 05:28 05:28 06:36 WBC 14.52 H (4.8-10.8) K/uL RBC 4.40 (4.2-5.4) M/uL Hgb 12.4 (12.0-16.0) g/dL Hct 35.9 L (37-47) % MCV 81.6 (80-100) fL MCH 28.2 (25-34) pg MCHC 34.5 (32-36) g/dL RDW Std Deviation 40.7 (36.4-46.3) fL RDW Coeff of Reggie 13.5 (11.5-14.5) % Plt Count 202 (130-400) K/uL MPV 9.9 (7.4-10.4) fL Immature Gran % (Auto) % Neut % (Auto) % Lymph % (Auto) % Ashe % (Auto) % Eos % (Auto) % Baso % (Auto) % Immature Gran # (Auto) (0.00-0.02) K/uL Neut # (Auto) (1.4-6.5) K/uL Lymph # (Auto) (1.2-3.4) K/uL Ashe # (Auto) (0.11-0.59) K/uL Eos # (Auto) (0-0.5) K/uL Baso # (Auto) (0-0.2) K/uL Sodium Pending 139 (136-145) mmol/L Potassium Pending 3.3 L (3.5-5.1) mmol/L Chloride Pending 106 (98-107) mmol/L Carbon Dioxide Pending 28 (21-32) mmol/L Anion Gap Pending 5.0 (3-11) BUN Pending 6 L D (7-18) mg/dl Creatinine Pending 0.49 L (0.6-1.2) mg/dl Est Cr Clr Drug Dosing Pending 163.3 ml/min Est GFR ( Amer) Pending 127.1 Est GFR (Non-Af Amer) Pending 109.7 BUN/Creatinine Ratio Pending 11.5 (10-20) Glucose Pending 82 (70-99) mg/dl Calcium Pending 8.4 L (8.5-10.1) mg/dl Total Bilirubin Pending 1.2 H (0.2-1) mg/dl Direct Bilirubin Pending AST Pending 96 H (15-37) U/L ALT Pending 226 H (12-78) U/L Alkaline Phosphatase Pending 201 H (45-117) U/L Total Protein Pending 6.3 L (6.4-8.2) gm/dl Albumin Pending 2.8 L (3.4-5.0) gm/dl Globulin 3.5 (2.5-4.0) gm/dl Albumin/Globulin Ratio 0.8 L (0.9-2) Lipase Pending 1782 H (73-393) U/L 02/16/19 Range/Units 06:36 WBC 14.11 H (4.8-10.8) K/uL RBC 4.47 (4.2-5.4) M/uL Hgb 12.7 (12.0-16.0) g/dL Hct 36.4 L (37-47) % MCV 81.4 (80-100) fL MCH 28.4 (25-34) pg MCHC 34.9 (32-36) g/dL RDW Std Deviation 40.1 (36.4-46.3) fL RDW Coeff of Reggie 13.4 (11.5-14.5) % Plt Count 189 (130-400) K/uL MPV 9.4 (7.4-10.4) fL Immature Gran % (Auto) 0.4 % Neut % (Auto) 81.5 % Lymph % (Auto) 9.6 % Ashe % (Auto) 7.1 % Eos % (Auto) 1.3 % Baso % (Auto) 0.1 % Immature Gran # (Auto) 0.05 H (0.00-0.02) K/uL Neut # (Auto) 11.51 H (1.4-6.5) K/uL Lymph # (Auto) 1.35 (1.2-3.4) K/uL Ashe # (Auto) 1.00 H (0.11-0.59) K/uL Eos # (Auto) 0.18 (0-0.5) K/uL Baso # (Auto) 0.02 (0-0.2) K/uL Sodium (136-145) mmol/L Potassium (3.5-5.1) mmol/L Chloride (98-107) mmol/L Carbon Dioxide (21-32) mmol/L Anion Gap (3-11) BUN (7-18) mg/dl Creatinine (0.6-1.2) mg/dl Est Cr Clr Drug Dosing ml/min Est GFR ( Amer) Est GFR (Non-Af Amer) BUN/Creatinine Ratio (10-20) Glucose (70-99) mg/dl Calcium (8.5-10.1) mg/dl Total Bilirubin (0.2-1) mg/dl Direct Bilirubin AST (15-37) U/L ALT (12-78) U/L Alkaline Phosphatase (45-117) U/L Total Protein (6.4-8.2) gm/dl Albumin (3.4-5.0) gm/dl Globulin (2.5-4.0) gm/dl Albumin/Globulin Ratio (0.9-2) Lipase (73-393) U/L
[2019-02-17 06:54] LABS: Albumin Level 2.8 gm/dl (3.4-5.0); BUN Creatinine Ratio 7.6 (10-20); Bilirubin Direct 0.3 mg/dl (0-0.2); Calcium 8.7 mg/dl (8.5-10.1); Creatinine Clr Calc Pharmacy 145.5 ml/min; Est GFR (African American) 122.4; Est GFR (Non-African American) 105.6; Potassium 3.3 mmol/L (3.5-5.1)
[2019-02-17 06:56] LABS: Total Protein 6.2 gm/dl (6.4-8.2)
[2019-02-17] MEDS: NSS + 20MEQ KCL 20 MEQ/1,000 ML BAG IV SCH ×2 (10:11→18:56)
[2019-02-17] MEDS ORDERED: fentaNYL citrate 100 MCG/2 ML VIAL ONE (10:43)
[2019-02-17] MEDS ORDERED: LIDOCAINE HCL 2% 2 ML VIAL/AMP(20MG/ML) INFIL ONE (10:43)
[2019-02-17] MEDS ORDERED: DEXAMETHASONE SOD INJ 4 MG/ML VIAL ONE (10:43)
[2019-02-17] MEDS ORDERED: PHENYLEPHRINE HCL 10 MG/ML VIAL ONE (10:43)
[2019-02-17] MEDS ORDERED: ONDANSETRON INJ 2 MG/ML 2 ML VIAL ONE (10:43)
[2019-02-17] MEDS ORDERED: SUCCINYLCHOLINE CHLORIDE 20 MG/ML 10 ML VIAL ONE (10:43)
[2019-02-17] MEDS ORDERED: PROPOFOL IV EMULSION 10 MG/ML 20 ML VIAL IV ONE (10:43)
[2019-02-17] MEDS ORDERED: GLYCOPYRROLATE 0.2 MG/ML VIAL ONE (10:43)
[2019-02-17] MEDS ORDERED: ePHEDrine sulfate 50 MG/ML AMP ONE (10:43)
[2019-02-17] MEDS ORDERED: MIDAZOLAM HCL 1 MG/ML 2ML VIAL ONE (10:43)
[2019-02-17] MEDS ORDERED: NEOSTIGMINE METHYLSULFATE 5 MG/5 ML SYR ONE (10:43)
[2019-02-17] MEDS ORDERED: BUPIVACAINE 0.5 % 5 MG/1 ML MPF 30ML VIAL ONE (11:59)
[2019-02-17] MEDS ORDERED: HEPARIN (PORCINE) 1000 UNIT/ML 10 ML (CATH LAB USE ONLY) ONE (11:59)
[2019-02-17] MEDS ORDERED: CEFAZOLIN 250 MG/ML 1 GM VIAL ONE (11:59)
[2019-02-17] MEDS ORDERED: PHENYLEPHRINE 100MCG/ML 5ML SYR ONE (13:48)
[2019-02-17] MEDS ORDERED: SUCCINYLCHOLINE 100MG/5ML SYR ONE (13:49)
[2019-02-17] MEDS ORDERED: ATROPINE SULFATE 0.1 MG/ML 10ML SYR IV PRN (13:57)
[2019-02-17] MEDS ORDERED: ONDANSETRON INJ 2 MG/ML 2 ML VIAL IV PRN (13:57)
[2019-02-17] MEDS ORDERED: fentaNYL citrate 100 MCG/2 ML VIAL IV PRN (13:57)
[2019-02-17] MEDS ORDERED: NALOXONE HCL 0.4 MG/1 ML VIAL/CARP IV PRN (13:57)
[2019-02-17] MEDS ORDERED: FLUMAZENIL 0.1 MG/1 ML 10 ML VIAL IV PRN (13:57)
[2019-02-17] MEDS ORDERED: ePHEDrine sulfate 50 MG/ML AMP IV PRN (13:57)
[2019-02-17] MEDS ORDERED: PROMETHAZINE HCL 12.5 MG in SODIUM CHLORIDE 0.9% 50 ML IV PRN (13:57)
[2019-02-17] MEDS ORDERED: LABETALOL HCL IV 5 MG/ML 20ML IV PRN (13:57)
--- NOTE | 2019-02-17 14:46 | Post Operative Brief Note ---
Immediate Post Op Note v1 Date of Surgery February 17, 2019 Pre & Post Diagnosis Operation Date: 02/14/19 14:05 Pre-Op Diagnosis: choledochelithiasis Post-Op Diagnosis: choledochelithiasis Operation Date: 02/17/19 12:25 Pre-Op Diagnosis: Gallstone pancreatitis Post-Op Diagnosis: Gallstone pancreatitis I identified the patient and participated in the time-out.: Yes Procedure Operation Date: 02/14/19 14:05 Actual Procedures p Endoscopic Retrograde Cholangiopancreatogram;(Not Applicable) - Tk Lugo MD s Esophagogastroduodenoscopy(Not Applicable) - Tk Lugo MD Operation Date: 02/17/19 12:25 Actual Procedures p Laparoscopic Cholecystectomy(Not Applicable) - Franklyn Zimmer MD Surgeon Franklyn Zimmer MD Ultrasound Tech None Estimated Blood Loss 5 Findings Consistent with Post-Op Diagnosis Specimens Gallbladder and contents Anesthesia Type General Complications none
--- NOTE | 2019-02-17 15:09 | Operative Report ---
DATE OF OPERATION: 02/16/2019 PREOPERATIVE DIAGNOSES: Cholelithiasis, history of pancreatitis. POSTOPERATIVE DIAGNOSES: Cholelithiasis, history of pancreatitis. PROCEDURE: Laparoscopic cholecystectomy. SURGEON: Franklyn Zimmer MD. FINDINGS: The gallbladder had no adhesions. It was dilated. It had multiple 1-2 mm yellow gallstones. The cystic duct was not dilated. Liver was of normal size and contour. The visible bowel appeared normal. TECHNIQUE: The patient was given a general anesthetic and the area was prepped and draped in the usual sterile fashion. A transverse incision was made below the umbilicus, carried down through the subcutaneous tissue to the fascia, which was grasped with 2 Carrol clamps and incised between. The peritoneum was identified, incised, and the introducer was placed bluntly. The abdomen was then insufflated to a pressure of 15 mmHg with carbon dioxide. The upper midline, midclavicular and anterior axillary introducers were placed under direct vision through small skin incisions. Traction was placed on the gallbladder beginning on the lateral side of the neck and infundibulum of the gallbladder. The peritoneum was opened and peeled down towards the common bile duct. This dissection was then carried anteriorly over and into the triangle of Calot, which was opened. The gallbladder was dissected away from the liver on the lateral side, which allowed better mobility. I then dissected additionally on the medial side, which exposed the medial aspect of the cystic duct. There was a lot of connective tissue and thickened lymphatics around the cystic duct, which were each individually cauterized and peeled away until I could identify the cystic duct. I then skeletonized the lateral side and was able to establish a plane behind it. I then performed further dissection in the triangle of Calot and identified the cystic artery and skeletonized it which allowed for a good window. That allowed me to confidently confirm that I had identified the cystic duct-gallbladder junction. Two clips were placed on the proximal cystic duct, one near the junction of the gallbladder and it was divided. Two clips were placed on the proximal cystic artery, one near the gallbladder and it was divided. The gallbladder was then peeled off the liver bed using electrocautery. It was placed into an Endobag and brought out through the upper midline incision. Then introducer was replaced. The edge of the liver was elevated and the gallbladder bed of the liver was inspected. There was one area that was oozing that was easily controlled with cautery. The subdiaphragmatic and subhepatic spaces were irrigated and irrigation removed. The gallbladder bed of the liver was again inspected and there was no bleeding. The previously placed clips were intact. Liver was allowed to fall back into its anatomic position. The gas was allowed to escape. The introducers were removed. The fascia of the umbilical and upper midline introducer sites were closed with interrupted 0 Vicryl. The skin of all the incisions was closed with 4-0 Monocryl in either an interrupted or running subcuticular fashion. The skin was anesthetized with 0.5% Marcaine. The skin was cleansed, dried, benzoin placed, Steri-Strips applied. Estimated blood loss was 5 mL. Sponge, needle and instrument counts were correct prior to closure. The patient tolerated the surgical procedure without complication and was transferred to recovery. I attest to the content of the Intraoperative Record and any orders documented therein. Any exception s are noted below.
--- NOTE | 2019-02-17 15:27 | Anesthesiology Progress Note ---
Date of Service February 17, 2019 Anesthesia Post Procedure Vital Signs Vital Signs: Temp Pulse Pulse Pulse Resp BP BP 02/17/19 15:25 37 C 88 18 127/81 02/17/19 15:15 90 20 137/75 02/17/19 15:05 91 H 19 158/85 H 02/17/19 14:55 36.9 C 96 H 19 133/83 02/17/19 12:30 37.2 C 74 18 173/95 H 02/17/19 11:32 37.1 C 76 21 139/89 02/17/19 08:05 36.7 C 69 24 149/85 H 02/17/19 06:38 36.9 C 72 21 137/84 02/16/19 23:12 37.1 C 76 20 162/81 H Pulse Ox 02/17/19 15:25 95 02/17/19 15:15 95 02/17/19 15:05 96 02/17/19 14:55 96 02/17/19 12:30 93 02/17/19 11:32 95 02/17/19 08:05 95 02/17/19 06:38 95 02/16/19 23:12 93 Pain Intensity Abdomen: Pain Intensity: 2 Transfer of Care Handoff Completed per policy Notes Mental Status: alert / awake / arousable Patient Amnestic to Procedure: Yes Nausea / Vomiting: adequately controlled Pain: adequately controlled Airway Patency, RR, SpO2: stable & adequate BP & HR: stable & adequate Hydration State: stable & adequate Anesthetic Complications: no major complications apparent
--- NOTE | 2019-02-17 17:50 | Hospitalist Progress Note ---
Date of Service February 17, 2019 Assessment & Plan (1) Gallstone pancreatitis: --CT ABD: demonstrated moderate to severe interstitial edema of pancreas with acute peripancreatic fluid in the periduodenal region, no evidence of necrosis, suspected reactive secondary inflammatory changes of the descending duodenum and gallbladder, primary cholecystitis considered unlikely. --ABD Ultrasound:demonstrated cholelithiasis with borderline gallbladder wall thickening, no evidence of ductal dilatation. --S/P ERCP with sphincterotomy, extraction of sludge and debris, and biliary stent placement performed. --LFTs, lipase trended --Clear liquid diet --IV fluids, antiemetics, pain control, IV zosyn --Plan for laparoscopic cholecystectomy today --Appreciate GI, surgery input --Persistent leukocytosis --Monitor CBC Hypokalemia Replace and monitor electrodes as needed (2) Choledocholithiasis: Management as above (3) Cholelithiasis: Management as above (4) GERD (gastroesophageal reflux disease): On IV famotidine. (5) DVT prophylaxis: SCDs Re: Surgery Code Status Full Code (6) Discharge planning issues: Expect to discharge home in stable Subjective Patient is seen and examined at bedside--back to surgery this morning Denies any nausea, vomiting, abdominal pain, chest pain, shortness of breath today Plan for laparoscopic cholecystectomy today Sitting in chair comfortably this morning Offers no other complaints Review of Systems Review of Systems: All systems reviewed & are unremarkable except as noted in HPI & below Physical Exam Physical Exam: Physical Exam: Vitals signs as noted above General Appearance:Moderately built and nourished, no apparent distress Head: normocephalic, Atraumatic Eyes: normal inspection, EOMI, PERRL Neck: supple, Trachea midline Respiratory/Chest: Normal breath sounds, CTA, No accessory muscle use Cardiovascular: S1, S2, No murmur Abdomen/GI:Soft, mild epigastric tender, Bowel sounds present Extremities/Musculoskelatal:normal inspection, no edema Neurologic/Psych:AAOX3, grossly no focal neurological deficits Skin: normal color, warm Results & Data Vital Signs (Past 12 Hours) Vital Signs Temp Pulse Pulse Pulse Resp BP BP 02/17/19 16:40 36.4 C L 88 17 127/82 02/17/19 16:16 36.8 C 78 18 125/83 02/17/19 15:35 86 19 133/79 02/17/19 15:25 37 C 88 18 127/81 02/17/19 15:15 90 20 137/75 02/17/19 15:05 91 H 19 158/85 H 02/17/19 14:55 36.9 C 96 H 19 133/83 02/17/19 12:30 37.2 C 74 18 173/95 H 02/17/19 11:32 37.1 C 76 21 139/89 02/17/19 08:05 36.7 C 69 24 149/85 H 02/17/19 06:38 36.9 C 72 21 137/84 Pulse Ox 02/17/19 16:40 95 02/17/19 16:16 95 02/17/19 15:35 95 02/17/19 15:25 95 02/17/19 15:15 95 02/17/19 15:05 96 02/17/19 14:55 96 02/17/19 12:30 93 02/17/19 11:32 95 02/17/19 08:05 95 02/17/19 06:38 95 Laboratory Results Short CBC 02/17/19 Range/Units 05:28 WBC 14.52 H (4.8-10.8) K/uL Hgb 12.4 (12.0-16.0) g/dL Hct 35.9 L (37-47) % Plt Count 202 (130-400) K/uL BMP 02/17/19 05:28 Sodium 138 Potassium 3.3 L Chloride 105 Carbon Dioxide 26 BUN 4 L Creatinine 0.55 L Glucose 95 Calcium 8.7 Liver Function 02/17/19 Range/Units 05:28 Total Bilirubin 1.0 (0.2-1) mg/dl Direct Bilirubin 0.3 H (0-0.2) mg/dl AST 46 H (15-37) U/L ALT 151 H (12-78) U/L Alkaline Phosphatase 175 H (45-117) U/L Albumin 2.8 L (3.4-5.0) gm/dl
[2019-02-17] MEDS: FAMOTIDINE 20 MG in SYRINGE 3 ML IV SCH (20:31)
[2019-02-18] MEDS: PIPERACILLIN/TAZOBACTAM 3.375 GM in DEXTROSE 5% 100 ML IV SCH ×2 (02:56→10:49)
[2019-02-18 06:15] LABS: Hematocrit (blood only) 34.7 % (37-47); Mean Corpuscular Hemoglobin 28.3 pg (25-34); Mean Corpuscular Hgb Conc 34.6 g/dL (32-36); Mean Corpuscular Volume 81.8 fL (80-100); Mean Platelet Volume 9.9 fL (7.4-10.4); Platelet Count 234 K/uL (130-400); RDW Coefficient of Variation 13.3 % (11.5-14.5); RDW Standard Deviation 40.2 fL (36.4-46.3); Red Blood Count 4.24 M/uL (4.2-5.4); White Blood Count 12.65 K/uL (4.8-10.8)
[2019-02-18 06:58] LABS: BUN Creatinine Ratio 17.5 (10-20); Calcium 8.5 mg/dl (8.5-10.1); Est GFR (African American) 123.9; Est GFR (Non-African American) 106.9; Magnesium 2.3 mg/dl (1.8-2.4); Potassium 3.7 mmol/L (3.5-5.1)
[2019-02-18] MEDS: NSS + 20MEQ KCL 20 MEQ/1,000 ML BAG IV SCH (07:59)
[2019-02-18] MEDS: MoRPHine SULFATE 4 MG/ML 1 ML CARP\\VIAL IV PRN (11:19)
[2019-02-18] MEDS ORDERED: OXYCODONE/ACETAMINOPHEN 5mg/325mg TAB PO PRN (13:21)
--- NOTE | 2019-02-18 14:51 | Surgery Progress Note ---
Date of Service February 18, 2019 Assessment & Plan (1) Cholelithiasis: Doing well postoperatively on postop day #1 status post laparoscopic cholecystectomy LFTs are almost completely returned to normal and bilirubin is normal Okay for discharge from surgical standpoint was felt to be stable and okay for discharge from internal medicine standpoint Subjective Has incisional discomfort Still has some left upper quadrant discomfort Denies nausea Has not vomited Physical Exam Gastrointestinal (Abdomen): Inspection/Auscultation: normal bowel sounds; abdomen not distended Percussion/Palpation: + abdomen tender (Incisional and left upper quadrant but mild) and abdomen soft Results & Data Vital Signs (Past 12 Hours) Vital Signs Temp Pulse Resp BP Pulse Ox 02/18/19 06:55 36.8 C 68 17 128/80 93 02/18/19 04:00 36.6 C 67 18 145/84 H 95
--- NOTE | 2019-02-18 15:35 | Hospitalist Progress Note ---
Date of Service February 18, 2019 Assessment & Plan (1) Gallstone pancreatitis: --CT ABD: demonstrated moderate to severe interstitial edema of pancreas with acute peripancreatic fluid in the periduodenal region, no evidence of necrosis, suspected reactive secondary inflammatory changes of the descending duodenum and gallbladder, primary cholecystitis considered unlikely. --ABD Ultrasound:demonstrated cholelithiasis with borderline gallbladder wall thickening, no evidence of ductal dilatation. --S/P ERCP with sphincterotomy, extraction of sludge and debris, and biliary stent placement performed. --S/P laparoscopic cholecystectomy POD #1 --LFTs, lipase trended down --Advance diet as tolerated --IV fluids, antiemetics, pain control, IV zosyn --Leukocytosis trending down --Appreciate GI, surgery input --Monitor CBC --Needs follow-up with surgery upon discharge Hypokalemia Resolved monitor (2) Choledocholithiasis: Management as above (3) Cholelithiasis: Management as above (4) GERD (gastroesophageal reflux disease): On IV famotidine. (5) DVT prophylaxis: Heparin SQ Code Status Full Code (6) Discharge planning issues: Expect to discharge home when stable Subjective Patient is seen and examined at bedside Has some incisional abdominal discomfort Tolerating clear liquid diet Denies any nausea, vomiting Also denies any chest pain, shortness of breath, dizziness We will advance diet today Review of Systems Review of Systems: All systems reviewed & are unremarkable except as noted in HPI & below Physical Exam Physical Exam: Physical Exam: Vitals signs as noted above General Appearance:Moderately built and nourished, no apparent distress Head: normocephalic, Atraumatic Eyes: normal inspection, EOMI Neck: supple, Trachea midline Respiratory/Chest: Normal breath sounds, CTA Cardiovascular: S1, S2, No murmur Abdomen/GI:Soft, mild epigastric tender, Bowel sounds present, surgical site in dressing Extremities/Musculoskelatal:normal inspection, no edema Neurologic/Psych:AAOX3, grossly no focal neurological deficits Skin: normal color, warm Results & Data Vital Signs (Past 12 Hours) Vital Signs Temp Pulse Resp BP Pulse Ox 02/18/19 15:04 36.9 C 66 16 132/83 97 02/18/19 06:55 36.8 C 68 17 128/80 93 02/18/19 04:00 36.6 C 67 18 145/84 H 95 Laboratory Results Short CBC 02/18/19 Range/Units 05:45 WBC 12.65 H (4.8-10.8) K/uL Hgb 12.0 (12.0-16.0) g/dL Hct 34.7 L (37-47) % Plt Count 234 (130-400) K/uL BMP 02/18/19 05:45 Sodium 138 Potassium 3.7 Chloride 106 Carbon Dioxide 24 BUN 9 D Creatinine 0.53 L Glucose 105 H Calcium 8.5
--- NOTE | 2019-02-18 16:23 | Discharge Summary ---
Date of Service February 18, 2019 Admission HPI Per Admitting Provider Pt is 53 y/o F with PMH GERD, recurrent sinusitis presented to ER with c/o abdominal pain. Pt states ate nachos for dinner and around 2100 last night ate some chips. At approx 2200 developed upper abdominal pain described as constant dull pain and nausea. Tried TUMS, ranitidine without relief. Reports vomiting x 2. Denies diarrhea or constipation. Last night with chills, did not take her temperature. Reports one month ago had similar upper abdominal pain that resolved with taking TUMS. Unsure what she ate at that time. Denies diaphoresis, hematemesis, CHAVEZ, dizziness, syncope, vision changes, neck pain, CP, SOB, orthopnea, palpitations, cough, sore throat, choking, otalgia, rhinorrhea, paresthesias, weakness, extremity weakness, extremity edema, rashes, urinary symptoms. Admission Exam Per Admitting Provider General: no distress, obese Head: normocephalic, atraumatic Eyes: PERRL, EOM's intact, conjunctiva non-injected, anicteric ENT: normal inspection external ears, nose, mucous membranes dry Neck: supple, trachea midline Lungs: clear, no respiratory distress, no wheezing/rhonchi/rales CV: RRR, no murmur, no JVD, no pretibial edema Abd: normal BS, soft, +tenderness to palpation RUQ, epigastric, LUQ, no rebound Ext: no cyanosis, no calf tenderness Neuro: A&O x 3, no focal deficits noted, normal affect Skin: warm, dry Principal Diagnosis Gallstone pancreatitis Hypokalemia Choledocholithiasis Discharge Data Allergies Allergy/AdvReac Type Severity Reaction Status Date / Time Sulfa (Sulfonamide Allergy Severe HIVES Verified 02/14/19 10:03 Antibiotics) sulfamethoxazole Allergy Severe Verified 02/14/19 10:03 Consultations 02/14/19 10:34 Consult Gastroenterology Stat Consult General Surgery Stat 02/14/19 10:53 ED Decision to Admit Stat 02/14/19 12:04 Consult Gastroenterology Routine Consult General Surgery Routine 02/14/19 12:09 Consult Anesthesiology Routine Procedures Performed Operation Date: 02/14/19 14:05 Actual Procedures p Endoscopic Retrograde Cholangiopancreatogram;(Not Applicable) - Tk adorno MD s Esophagogastroduodenoscopy(Not Applicable) - Tk Lugo MD Operation Date: 02/17/19 12:25 Actual Procedures p Laparoscopic Cholecystectomy(Not Applicable) - Franklyn Zimmer MD --CT ABD: demonstrated moderate to severe interstitial edema of pancreas with acute peripancreatic fluid in the periduodenal region, no evidence of necrosis, suspected reactive secondary inflammatory changes of the descending duodenum and gallbladder, primary cholecystitis considered unlikely. --ABD Ultrasound:demonstrated cholelithiasis with borderline gallbladder wall thickening, no evidence of ductal dilatation. Ordered Studies 02/14/19 [place] ERCP biliary ductal Routine 02/14/19 09:26 CT abd pelvis IV con only Stat US abdomen limited Stat Hospital Course (1) Gallstone pancreatitis: --CT ABD: demonstrated moderate to severe interstitial edema of pancreas with acute peripancreatic fluid in the periduodenal region, no evidence of necrosis, suspected reactive secondary inflammatory changes of the descending duodenum and gallbladder, primary cholecystitis considered unlikely. --ABD Ultrasound:demonstrated cholelithiasis with borderline gallbladder wall thickening, no evidence of ductal dilatation. --S/P ERCP with sphincterotomy, extraction of sludge and debris, and biliary stent placement performed. --S/P laparoscopic cholecystectomy POD #1 --LFTs, lipase trended down --Advance diet as tolerated --IV fluids, antiemetics, pain control, IV zosyn --Leukocytosis trending down --Appreciate GI, surgery input --Monitor CBC --Needs follow-up with surgery upon discharge Hypokalemia Resolved monitor (2) Choledocholithiasis: Management as above (3) Cholelithiasis: Management as above (4) GERD (gastroesophageal reflux disease): On IV famotidine. (5) DVT prophylaxis: Heparin SQ Code Status Full Code (6) Discharge planning issues: Expect to discharge home when stable Total Time Total Time Spent Total Time Spent (In Minutes): 40 minutes Total Time Includes: Examination of the Patient, Discharge Planning, Medication Reconciliation, Communication With Other Providers and Other Discharge Plan Discharge Items Patient Disposition: Home - Self-Care Reason For Visit: ACID REFLUX Discharge Diagnosis: Gallstone pancreatitis Hypokalemia Choledocholithiasis Activity: Per Instructions section Exercise/Sports: Gradually increase as tolerated Non-emergency contact: Primary Care Provider and Surgeon Call non-emergency contact if: you have any medication questions, your symptoms worsen, your pain is not controlled, your pain is worsening, your pain is unusual for you, your pain is concerning for you, you have a fever, your wound has increased redness, your wound has increased drainage and your wound pain has increased Follow-up/Referrals: Dolores Clifford PA-C [Primary Care Provider] - Diet: Heart Healthy Addtl Attending Provider Instructions: Follow-up with your primary care physician Dr. Perez on February 23, 2019 at 1:45 PM Follow-up with your surgeon Dr. Zimmer in 1 to 2 weeks as recommended by your surgeon Complete antibiotic course as prescribed, Augmentin twice a day for 3 more days. Seek immediate medical attention if your symptoms reoccur or worsen Pending Studies at Discharge: Yes Studies:: Pathology report Stand-Alone Forms: [facility], Smoking Cessation Medications and DC Order Prescriptions: New oxycodone-acetaminophen [Percocet] 5-325 mg Tablet 1 tab PO Q8H PRN (Reason: pain) Qty: 10 RF: 0 polyethylene glycol 3350 [Miralax] 17 gram Powder In Packet 17 g PO DAILY PRN (Reason: constipation) Qty: 30 RF: 0 amoxicillin-pot clavulanate [Augmentin] 500-125 mg tablet 1 tab PO BID 3 Days Qty: 6 RF: 0 Continued ranitidine HCl 300 mg tablet 300 mg PO HS RF: 0 pantoprazole 40 mg tablet,delayed release (DR/EC) 40 mg PO HS RF: 0 cyclobenzaprine 5 mg tablet 5 mg PO TID PRN (Reason: Muscle Spasm) RF: 0 diphenhydramine HCl [Benadryl] 25 mg Capsule 50 mg PO HS PRN (Reason: Nasal Congestion) RF: 0 triamcinolone acetonide [Nasacort] 55 mcg Aerosol,[place] 2 spray intranasal DAILY PRN (Reason: Congestion) RF: 0 Discharge Orders: Discharge Order (Routine); Ordered 02/18/19 Ordered By: Tk Robertson Admission Data Admit Date/Time: 02/14/19 11:24 Attending Provider: Tk Robertson Admit Provider: Luisito Lakhani Primary Care Provider: Dolores Clifford Other Providers: Tk Lugo ; Franklyn Zimmer ; Luisito Lakhani ; Arti Dawkins
[2019-02-18] MEDS ORDERED: HEPARIN SOD 5,000 UNIT/0.5 ML VIAL SQ SCH (21:00)
== END 2019-02-18 19:45 | disposition home or self-care (01) | DRG 419 ==
LOC: ED 08:33 → SUATTDRO 11:24 → 3N 11:24

== ENCOUNTER 2019-03-05 01:21 | Inpatient (IN) ==
[2019-03-05] MEDS ORDERED: ONDANSETRON INJ 2 MG/ML 2 ML VIAL IV STA (01:35)
[2019-03-05] MEDS ORDERED: HYDROmorphone INJ 1 MG/ML SYRINGE IV STA ×2 (01:35→03:42)
[2019-03-05] MEDS ORDERED: SODIUM CHLORIDE 0.9% 1000ML 1,000 ML IV ONE ×2 (01:35→03:45)
[2019-03-05 02:06] LABS: iSTAT Creatinine 0.6 mg/dl (0.6-1.3); iSTAT Hemoglobin 13.3 g/dl (12.0-16.0); iSTAT Ionized Calcium 1.22 mmol/l (1.12-1.32); iSTAT Potassium 3.9 mEq/L (3.3-5.0)
[2019-03-05 02:13] LABS: Basophils # (auto) 0.06 K/uL (0-0.2); Basophils % (auto) 0.4 %; Eosinophils # (auto) 0.65 K/uL (0-0.5); Eosinophils % (auto) 4.4 %; Hematocrit (blood only) 38.8 % (37-47); Hemoglobin 13.6 g/dL (12.0-16.0); Immature Granulocytes # (auto) 0.04 K/uL (0.00-0.02); Immature Granulocytes % (auto) 0.3 %; Lymphocytes # (auto) 2.03 K/uL (1.2-3.4); Lymphocytes % (auto) 13.7 %; Mean Corpuscular Hemoglobin 28.2 pg (25-34); Mean Corpuscular Hgb Conc 35.1 g/dL (32-36); Mean Corpuscular Volume 80.3 fL (80-100); Mean Platelet Volume 9.1 fL (7.4-10.4); Monocytes # (auto) 0.56 K/uL (0.11-0.59); Monocytes % (auto) 3.8 %; Neutrophils # (auto) 11.43 K/uL (1.4-6.5); Neutrophils % (auto) 77.4 %; Platelet Count 380 K/uL (130-400); RDW Coefficient of Variation 12.6 % (11.5-14.5); RDW Standard Deviation 36.7 fL (36.4-46.3); Red Blood Count 4.83 M/uL (4.2-5.4); White Blood Count 14.77 K/uL (4.8-10.8)
[2019-03-05 02:40] LABS: Albumin Level 3.4 gm/dl (3.4-5.0); BUN Creatinine Ratio 18.8 (10-20); Calcium 9.3 mg/dl (8.5-10.1); Est GFR (African American) 114.1; Est GFR (Non-African American) 98.5; Potassium 3.8 mmol/L (3.5-5.1)
[2019-03-05 02:43] LABS: Albumin Globulin Ratio 0.9 (0.9-2); Bilirubin,Total 0.5 mg/dl (0.2-1); Total Protein 7.4 gm/dl (6.4-8.2)
[2019-03-05] MEDS ORDERED: OPTIRAY 320 125ml IV PRN (02:55)
[2019-03-05 03:20] LABS: Partial Thromboplastin Ratio 0.9; Partial Thromboplastin Time 24.9 Seconds (21.0-31.0); Prothrombin Time 10.2 Seconds (9.0-12.0)
--- NOTE | 2019-03-05 03:29 | Emergency Department Note ---
History of Present Illness General Chief complaint: Abdominal Pain Stated complaint: SEVERE ABD PAIN, SOB History of Present Illness Maximum Pain Intensity: 2 This 53-year-old presents to the ER complaining of severe epigastric pain with shortness of breath that radiates around to her back Location: Epigastric Quality: Severe Severity: Severe Duration: Tonight Timing: Started shortly after dinner Context: Pain persisted and patient came in Modifying factors: better with nothing; worse with palpation Patient had choledocholithiasis with cholecystectomy and pancreatitis few weeks ago. No complications with the surgery. Patient states she was doing fine until today. Patient denies diarrhea, fever, chills, cough, congestion. She does not smoke. Home Medications Home Medications Medication Instructions Recorded Confirmed Type pantoprazole 40 mg PO HS 02/14/19 03/05/19 History polyethylene glycol 3350 [Miralax] 17 g PO DAILY PRN #30 ea 02/18/19 03/05/19 Rx Allergies Allergy/AdvReac Type Severity Reaction Status Date / Time Sulfa (Sulfonamide Allergy Severe HIVES Verified 03/05/19 01:50 Antibiotics) sulfamethoxazole Allergy Severe Hives Verified 03/05/19 01:50 Past Med/Surg History Medical History GERD (gastroesophageal reflux disease) (Chronic) No pertinent past medical history Obesity (Chronic) BEAU (obstructive sleep apnea) (Chronic) Not on CPAP Recurrent sinusitis (Chronic) Surgical History History of arthroscopy of knee (Chronic) History of arthroscopy of shoulder (Chronic) History of (Chronic) x 3 History of ERCP No pertinent past surgical history Family History Grandfather (Maternal) Stroke Brother Diabetes Other Cancer Social History Preferred Language: Bahraini Communication Ability: Effective Collection Coordinator Required: No Beliefs That Will Affect Care: None Current Living Situation: Spouse Feels Safe at Home: Yes Smoking Status: Never smoker Hx Alcohol Use: Yes (1 glass wine once a month) Hx Substance Use: No Review of Systems A total of 10 systems reviewed and were otherwise negative Physical Exam Vital Signs Vital Signs - 24 hr 03/05/19 01:23 Temperature 36.3 C L Temperature Source Oral Pulse Rate 70 Respiratory Rate 16 Respiratory Effort / Characteristics Non-Labored Spontaneous Respiratory Depth Normal Respiratory Pattern Regular Blood Pressure 181/92 H Blood Pressure Mean 121 Blood Pressure Position Sitting Pulse Oximetry 99 Oxygen Delivery Method Room Air Sepsis Recent Fever Within 48 Hours No Sepsis Action Taken by Nursing No Action Required VITALS: Vitals are noted on the nurse's note and reviewed by myself. Vital signs hypertensive GENERAL: White female who appears in pain, in no acute distress, nondiaphoretic, well-developed well-nourished. SKIN: Capillary reflex less than 2 seconds. HEENT: Normocephalic. PERRLA. EOMI. Nares patent. Mucous membranes moist. Neck is supple without nuchal rigidity. HEART: Regular rate and rhythm LUNGS: Clear to auscultation bilaterally without wheezes, rales or rhonchi. No retractions or accessory muscle use. ABDOMEN: Positive bowel sounds x 4. Normal tympanic percussion. Soft, tender to palpation epigastric region, without masses or organomegaly. [place] sign negative. No guarding or rebound tenderness. No CVA tenderness MUSCULOSKELETAL: No gross musculoskeletal defects. NEURO: Patient was alert and oriented to person place and time. Normal se nsation to light and sharp touch. No focal neurological deficits. Course Administered Medications Ioversol (Optiray 320 125ml) 119 ml IV ONCE PRN PRN Reason: Interaction Checking Stop: 03/09/19 02:54 Last Admin: 03/05/19 02:55 Dose: 119 ml Documented by: [id number] Discontinued Medications Hydromorphone HCl (Dilaudid) 1 mg IV NOW STA Stop: 03/05/19 01:36 Last Admin: 03/05/19 01:58 Dose: 1 mg Documented by: [id number] Hydromorphone HCl (Dilaudid) 1 mg IV NOW STA Stop: 03/05/19 03:43 Last Admin: 03/05/19 04:08 Dose: 1 mg Documented by: [id number] Sodium Chloride (Nss 1000ml) 1,000 mls @ 999 mls/hr IV .Q1H1M ONE Stop: 03/05/19 02:35 Last Infusion: 03/05/19 02:52 Dose: 0 mls/hr Documented by: [id number] Admin: 03/05/19 02:01 Dose: 999 mls/hr Documented by: [id number] Piperacillin Sod/Tazobactam Sod (Zosyn) 4.5 gm in 120 mls @ 240 mls/hr IV NOW ONE Stop: 03/05/19 04:11 Last Admin: 03/05/19 04:08 Dose: 240 mls/hr Documented by: [id number] Sodium Chloride (Nss 1000ml) 1,000 mls @ 999 mls/hr IV .Q1H1M ONE Stop: 03/05/19 04:45 Last Admin: 03/05/19 04:08 Dose: 999 mls/hr Documented by: [id number] Ondansetron HCl (Zofran) 4 mg IV NOW STA Stop: 03/05/19 01:36 Last Admin: 03/05/19 01:58 Dose: 4 mg Documented by: [id number] Medical Decision Making Medical Records Attestation: I reviewed the patient's medical records. Home Medications Current Medication List: was personally reviewed by me Laboratory Data Attestation: I reviewed the patient's lab results. Result diagrams: 03/05/19 01:51 03/05/19 01:51 Lab Results 03/05/19 03/05/19 03/05/19 Range/Units 01:51 01:51 01:51 WBC 14.77 H (4.8-10.8) K/uL RBC 4.83 (4.2-5.4) M/uL Hgb 13.6 (12.0-16.0) g/dL POC Hgb 13.3 (12.0-16.0) g/dl Hct 38.8 (37-47) % POC Hct 39 (37-47) % MCV 80.3 (80-100) fL MCH 28.2 (25-34) pg MCHC 35.1 (32-36) g/dL RDW Std Deviation 36.7 (36.4-46.3) fL RDW Coeff of Reggie 12.6 (11.5-14.5) % Plt Count 380 (130-400) K/uL MPV 9.1 (7.4-10.4) fL Immature Gran % (Auto) 0.3 % Neut % (Auto) 77.4 % Lymph % (Auto) 13.7 % [place] % (Auto) 3.8 % Eos % (Auto) 4.4 % Baso % (Auto) 0.4 % Immature Gran # (Auto) 0.04 H (0.00-0.02) K/uL Neut # (Auto) 11.43 H (1.4-6.5) K/uL Lymph # (Auto) 2.03 (1.2-3.4) K/uL [place] # (Auto) 0.56 (0.11-0.59) K/uL Eos # (Auto) 0.65 H (0-0.5) K/uL Baso # (Auto) 0.06 (0-0.2) K/uL PT (9.0-12.0) Seconds INR (0.9-1.1) APTT (21.0-31.0) Seconds PTT Ratio POC D-Dimer (0-450) ng/mlFEU POC Sodium 138 (135-144) mEq/L Sodium 139 (136-145) mmol/L POC Potassium 3.9 (3.3-5.0) mEq/L Potassium 3.8 (3.5-5.1) mmol/L POC Chloride 104 (101-112) mEq/L Chloride 107 (98-107) mmol/L Carbon Dioxide 26 (21-32) mmol/L POC Total CO2 24 (24-31) mEq/l Anion Gap 6.0 (3-11) POC Anion Gap 15.0 L (16-25) mmol/L POC BUN 12 (7-18) mg/dl BUN 13 (7-18) mg/dl Creatinine 0.68 (0.6-1.2) mg/dl POC Creatinine 0.6 (0.6-1.3) mg/dl Est Cr Clr Drug Dosing 116.0 ml/min Est GFR ( Amer) 114.1 Est GFR (Non-Af Amer) 98.5 BUN/Creatinine Ratio 18.8 (10-20) Glucose 133 H (70-99) mg/dl POC Glucose (other) 136 H (70-99) mg/dl Calcium 9.3 (8.5-10.1) mg/dl POC Ioniz Calcium Marcia 1.22 (1.12-1.32) mmol/l Total Bilirubin 0.5 (0.2-1) mg/dl AST 15 (15-37) U/L ALT 22 (12-78) U/L Alkaline Phosphatase 143 H (45-117) U/L POC Troponin I (0-0.045) ng/ml Total Protein 7.4 (6.4-8.2) gm/dl Albumin 3.4 (3.4-5.0) gm/dl Globulin 4.0 (2.5-4.0) gm/dl Albumin/Globulin Ratio 0.9 (0.9-2) Lipase 62484 H (73-393) U/L 03/05/19 03/05/19 Range/Units 01:53 02:03 WBC (4.8-10.8) K/uL RBC (4.2-5.4) M/uL Hgb (12.0-16.0) g/dL POC Hgb (12.0-16.0) g/dl Hct (37-47) % POC Hct (37-47) % MCV (80-100) fL MCH (25-34) pg MCHC (32-36) g/dL RDW Std Deviation (36.4-46.3) fL RDW Coeff of Reggie (11.5-14.5) % Plt Count (130-400) K/uL MPV (7.4-10.4) fL Immature Gran % (Auto) % Neut % (Auto) % Lymph % (Auto) % [place] % (Auto) % Eos % (Auto) % Baso % (Auto) % Immature Gran # (Auto) (0.00-0.02) K/uL Neut # (Auto) (1.4-6.5) K/uL Lymph # (Auto) (1.2-3.4) K/uL [place] # (Auto) (0.11-0.59) K/uL Eos # (Auto) (0-0.5) K/uL Baso # (Auto) (0-0.2) K/uL PT 10.2 (9.0-12.0) Seconds INR 1.0 (0.9-1.1) APTT 24.9 (21.0-31.0) Seconds PTT Ratio 0.9 POC D-Dimer > 450 H* (0-450) ng/mlFEU POC Sodium (135-144) mEq/L Sodium (136-145) mmol/L POC Potassium (3.3-5.0) mEq/L Potassium (3.5-5.1) mmol/L POC Chloride (101-112) mEq/L Chloride (98-107) mmol/L Carbon Dioxide (21-32) mmol/L POC Total CO2 (24-31) mEq/l Anion Gap (3-11) POC Anion Gap (16-25) mmol/L POC BUN (7-18) mg/dl BUN (7-18) mg/dl Creatinine (0.6-1.2) mg/dl POC Creatinine (0.6-1.3) mg/dl Est Cr Clr Drug Dosing ml/min Est GFR ( Amer) Est GFR (Non-Af Amer) BUN/Creatinine Ratio (10-20) Glucose (70-99) mg/dl POC Glucose (other) (70-99) mg/dl Calcium (8.5-10.1) mg/dl POC Ioniz Calcium Marcia (1.12-1.32) mmol/l Total Bilirubin (0.2-1) mg/dl AST (15-37) U/L ALT (12-78) U/L Alkaline Phosphatase (45-117) U/L POC Troponin I < 0.03 (0-0.045) ng/ml Total Protein (6.4-8.2) gm/dl Albumin (3.4-5.0) gm/dl Globulin (2.5-4.0) gm/dl Albumin/Globulin Ratio (0.9-2) Lipase (73-393) U/L Imaging Data Attestation: I personally reviewed and interpreted this imaging study as follows: Blood Pressure Blood Pressure Findings: Elevated blood pressure Blood Pressure Disposition: Referred to patients primary care provider [facility] Narrative Prior records/ancillary studies reviewed. Triage Nursing notes reviewed. The patient's history was concerning for epigastric pain. Differential diagnosis: Etiologies such as pulmonary, cardiac, postsurgical, appendicitis, diverticul itis, PUD, biliary pathology, UTI, pancreatitis, obstruction, mesenteric ischemia, aortic pathology, infections, inflammatory bowel disease, renal colic, as well as others were entertained. Physical examination findings: As above. ER treatment provided: IV fluids, Dilaudid, Zofran, Zosyn On reassessment the patient felt better. Diagnostics interpreted by me: ECG: Ordered for epigastric pain Normal sinus, normal intervals, no acute ST-T wave changes. Impression normal sinus rhythm interpreted by myself I think arrhythmia is unlikely. EKG shows normal sinus rhythm with no interval abnormalities such as QT prolongation or WPW. There are no findings to suggest Brugada syndrome. Cardiac monitoring in the emergency department reveals no tachycardic or bradycardic dysrhythmia. Hypertrophic cardiomyopathy was considered but there are no clear historical elements pointing toward this. EKG is not suggestive. The QRS voltage is not extremely large and there are no suggestive Q waves. The labs revealed leukocytosis, lipase 19,000 Elevated d-dimer. Negative CTA. Imaging studies: CTA CHEST: COMPARISON: Chest x-ray 02/14/19 IMPRESSION: No acute pulmonary embolism. Cardiomegaly without thoracic aortic aneurysm or pericardial effusion. Relatively diffuse bilateral groundglass opacity and central bronchial wall thickening may be secondary to low lung volumes/atelectasis. Mild edema or infectious/inflammatory process considered less likely. Correlate clinically. No pleural effusion or pneumothorax. INCIDENTAL FINDINGS: Spondylosis. CT ABDOMEN & PELVIS With Contrast: COMPARISON: CT 02/14/19 IMPRESSION: Interval cholecystectomy and placement of a biliary stent extending from the hilum into the second portion of the duodenum. No significant biliary ductal dilatation or drainable gallbladder fossa fluid collection. A pancreatic stent is present extending from the pancreatic neck into the duodenum without duct dilation. Peripancreatic inflammatory stranding compatible with pancreatitis again seen, overall mildly decreased from prior. 3 cm focal fluid collection inferior to the pancreatic tail with faint rim of enhancement likely represents a developing pseudocyst. Abscess considered less likely but not excluded. No free air, small bowel obstruction, or hydroureteronephrosis. INCIDENTAL FINDINGS: Post surgical change in the anterior abdominal wall/umbilicus. Additional incidental/chronic findings are similar to recent prior. Radiologist: Blanco Montero M.D. Consultation: A consultation was placed with the hospitalist, Dr. Byrnes. The case was discussed and diagnostics were reviewed. The patient was evaluated in the ER for further treatment. He requested I speak with GI. I spoke with Dr. Ugarte and recommends hydration and will consult his colleagues and the patient will be evaluated later today. Exam and history seem consistent with recurrent pancreatitis with a developing pseudocyst. Patient was given pain meds and antibiotics and hydrated as above. Medicine and GI are consulted. Patient is agreeable treatment plan of admission. Patient was reassessed multiple times. Her pain was managed. She was afebrile. By the evaluation outlined above emergent etiologies such as appendicitis, diverticulitis, PUD, biliary pathology, UTI, obstruction, mesenteric ischemia, aortic pathology, inflammatory bowel disease, renal colic, as well as others were deemed relatively unlikely. The pt informed about the findings as listed above. All questions were answered and pleased with the treatment. Case reviewed with my attending The chart was completed utilizing [employer] Speech voice recognition software. Grammatical errors, random word insertions, pronoun errors, and incomplete sentences are an occassional consequence of this system due to software limitations, ambient noise, and hardware issues. Any formal questions or con cerns about the content, text, or information contained within the body of this dictation should be directly addressed to the physician farm assistant for clarification. Impression & Plan Acute pancreatitis, Pancreatic pseudocyst Discharge Plan Visit Data Chief Complaint: Abdominal Pain Stated Complaint: SEVERE ABD PAIN, SOB ED Provider: Steff French ED Midlevel Provider: Julia Henry Discharge Problem: Acute pancreatitis, Pancreatic pseudocyst Patient Disposition: Being Evaluated by Hospitalist Condition: Fair Forms Stand Alone Forms: Call Back Authorization, [facility] Prescriptions Prescriptions: No Action pantoprazole 40 mg tablet,delayed release (DR/EC) 40 mg PO HS RF: 0 polyethylene glycol 3350 [Miralax] 17 gram Powder In Packet 17 g PO DAILY PRN (Reason: constipation) Qty: 30 RF: 0 Referrals Referrals: Dolores Clifford PA-C [Primary Care Provider] - Discharge Problem: Acute pancreatitis Qualifiers: Pancreatitis type: unspecified pancreatitis type Acute pancreatitis complication: unspecified Qualified Code(s): K85.90 - Acute pancreatitis without necrosis or infection, unspecified
[2019-03-05] MEDS ORDERED: PIPERACILLIN/TAZOBACTAM 4.5 GM/120 ML BAG IV ONE (03:42)
[2019-03-05] MEDS ORDERED: PIPERACILL/TAZOBAC CONSULT ACTIVE PRN (03:42)
[2019-03-05] MEDS ORDERED: MoRPHine SULFATE 4 MG/ML 1 ML CARP\\VIAL IV PRN (04:06)
[2019-03-05] MEDS ORDERED: PROMETHAZINE HCL 12.5 MG in SODIUM CHLORIDE 0.9% 50 ML IV PRN (04:06)
[2019-03-05] MEDS ORDERED: LACTATED RINGER'S 1,000 ML IV SCH (04:15)
[2019-03-05 04:17] LABS: Magnesium 2.2 mg/dl (1.8-2.4)
[2019-03-05] MEDS ORDERED: LACTATED RINGER'S 1,000 ML IV ONE (05:00)
[2019-03-05] MEDS ORDERED: LISINOPRIL 5 MG TAB PO ONE (05:15)
--- NOTE | 2019-03-05 05:25 | History & Physical Report ---
Date of Service March 05, 2019 Assessment & Plan (1) Recurrent pancreatitis: Complicated pancreatitis Pseudocyst on initial CT read Recent gallstone pancreatitis/cholecystitis status post cholecystectomy Situational hypertension Hyperglycemia rule out DM GMF Bowel rest, IV fluids, analgesia GI consult RE complicated pancreatitis (ER provider already in touch with Dr. Ugarte.) Hold off on additional antibiotics for pseudocyst until patient seen by GI. Analgesia, monitor BP, initiate lisinopril for maintenance BP control if with persistent elevation (BP elevation may be chronic basis of cardiomegaly on CT chest.) check hemoglobin A1c DVT prophylaxis. Lovenox subcu Full code History of Present Illness Chief Complaint: Abdominal pain Primary Care Provider: Dr. Perez History obtained from patient and records. Medical history significant for BEAU, GERD, history of gallstone pancreatitis. Recent confinement 2 weeks ago for gallstone pancreatitis/cholecystitis status post ERCP with sphincterotomy, status post laparoscopic cholecystectomy. Bloated feeling at home as per patient. Compliant with bland diet instructions. No recent alcohol intake. Doing well postop on follow-up visit with surgeon last week as per outpatient note. Yesterday, patient noted sharp epigastric pain with shortness of breath going to her back, with nausea, no emesis, good BM. No fever, no chills. Patient consulted emergency room. Patient given Zosyn for possible developing pseudocyst on CT. 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 Allergies Allergy/AdvReac Type Severity Reaction Status Date / Time Sulfa (Sulfonamide Allergy Severe HIVES Verified 03/05/19 01:50 Antibiotics) sulfamethoxazole Allergy Severe Hives Verified 03/05/19 01:50 Home Medications Home Medications Medication Instructions Recorded Confirmed Type pantoprazole 40 mg PO HS 02/14/19 03/05/19 History polyethylene glycol 3350 [Miralax] 17 g PO DAILY PRN #30 ea 02/18/19 03/05/19 Rx Past Med/Surg History Medical History GERD (gastroesophageal reflux disease) (Chronic) No pertinent past medical history Obesity (Chronic) BEAU (obstructive sleep apnea) (Chronic) Not on CPAP Recurrent sinusitis (Chronic) Surgical History History of arthroscopy of knee (Chronic) History of arthroscopy of shoulder (Chronic) History of (Chronic) x 3 History of ERCP No pertinent past surgical history Family History Grandfather (Maternal) Stroke Brother Diabetes Other Cancer Social History Preferred Language: Swazi Communication Ability: Effective Booster Station Operator Required: No Beliefs That Will Affect Care: None Current Living Situation: Spouse Other Information That Helps Us Care for You: No Feels Safe at Home: Yes Safety Concerns: Feels Safe At This Time Smoking Status: Never smoker Do You Dip or Chew Tobacco: No ; Second Hand Exposure: No ; Tobacco Cessation Education Requested by Patient: No Hx Alcohol Use: Yes Alcohol type: wine Hx Substance Use: No Review of Systems Review of Systems: As per HPI, all 10 systems reviewed, all other ROS negative Physical Exam Physical Exam: GENERAL: Comfortable, obese, looks younger than stated age, no respiratory distress SKIN: Normal color, warm HEENT: [place] palpebral conjunctivae, no ptosis, dry buccal mucosa NECK : Supple, short neck, no tenderness CHEST : CTA, no tenderness HEART : RRR, no obvious murmurs ABDOMEN: distention, epigastric tenderness EXTREMITIES : Bilateral LE swelling, no LE tenderness, no other conspicuous deformities noted NEUROLOGIC : Coherent, no facial asymmetry, no other gross focality Results & Data Vital Signs (Past 12 Hours) Vital Signs Temp Pulse Pulse Resp BP BP Pulse Ox 03/05/19 05:00 67 16 124/88 97 03/05/19 04:00 64 18 162/93 H 96 03/05/19 01:23 36.3 C L 70 16 181/92 H 99 Laboratory Results Laboratory Results WBC 14.77 K/uL (4.8-10.8) H 03/05/19 01:51 RBC 4.83 M/uL (4.2-5.4) 03/05/19 01:51 Hgb 13.6 g/dL (12.0-16.0) 03/05/19 01:51 POC Hgb 13.3 g/dl (12.0-16.0) 03/05/19 01:51 Hct 38.8 % (37-47) 03/05/19 01:51 POC Hct 39 % (37-47) 03/05/19 01:51 MCV 80.3 fL (80-100) 03/05/19 01:51 MCH 28.2 pg (25-34) 03/05/19 01:51 MCHC 35.1 g/dL (32-36) 03/05/19 01:51 RDW Std Deviation 36.7 fL (36.4-46.3) 03/05/19 01:51 RDW Coeff of Reggie 12.6 % (11.5-14.5) 03/05/19 01:51 Plt Count 380 K/uL (130-400) 03/05/19 01:51 MPV 9.1 fL (7.4-10.4) 03/05/19 01:51 Immature Gran % (Auto) 0.3 % 03/05/19 01:51 Neut % (Auto) 77.4 % 03/05/19 01:51 Lymph % (Auto) 13.7 % 03/05/19 01:51 [place] % (Auto) 3.8 % 03/05/19 01:51 Eos % (Auto) 4.4 % 03/05/19 01:51 Baso % (Auto) 0.4 % 03/05/19 01:51 Immature Gran # (Auto) 0.04 K/uL (0.00-0.02) H 03/05/19 01:51 Neut # (Auto) 11.43 K/uL (1.4-6.5) H 03/05/19 01:51 Lymph # (Auto) 2.03 K/uL (1.2-3.4) 03/05/19 01:51 [place]et # (Auto) 0.56 K/uL (0.11-0.59) 03/05/19 01:51 Eos # (Auto) 0.65 K/uL (0-0.5) H 03/05/19 01:51 Baso # (Auto) 0.06 K/uL (0-0.2) 03/05/19 01:51 PT 10.2 Seconds (9.0-12.0) 03/05/19 02:03 INR 1.0 (0.9-1.1) 03/05/19 02:03 APTT 24.9 Seconds (21.0-31.0) 03/05/19 02:03 PTT Ratio 0.9 03/05/19 02:03 POC D-Dimer > 450 ng/mlFEU (0-450) H* 03/05/19 01:53 POC Sodium 138 mEq/L (135-144) 03/05/19 01:51 Sodium 139 mmol/L (136-145) 03/05/19 01:51 POC Potassium 3.9 mEq/L (3.3-5.0) 03/05/19 01:51 Potassium 3.8 mmol/L (3.5-5.1) 03/05/19 01:51 POC Chloride 104 mEq/L (101-112) 03/05/19 01:51 Chloride 107 mmol/L (98-107) 03/05/19 01:51 Carbon Dioxide 26 mmol/L (21-32) 03/05/19 01:51 POC Total CO2 24 mEq/l (24-31) 03/05/19 01:51 Anion Gap 6.0 (3-11) 03/05/19 01:51 POC Anion Gap 15.0 mmol/L (16-25) L 03/05/19 01:51 POC BUN 12 mg/dl (7-18) 03/05/19 01:51 BUN 13 mg/dl (7-18) 03/05/19 01:51 Creatinine 0.68 mg/dl (0.6-1.2) 03/05/19 01:51 POC Creatinine 0.6 mg/dl (0.6-1.3) 03/05/19 01:51 Est Cr Clr Drug Dosing 116.0 ml/min 03/05/19 01:51 Est GFR ( Amer) 114.1 03/05/19 01:51 Est GFR (Non-Af Amer) 98.5 03/05/19 01:51 BUN/Creatinine Ratio 18.8 (10-20) 03/05/19 01:51 Glucose 133 mg/dl (70-99) H 03/05/19 01:51 POC Glucose (other) 136 mg/dl (70-99) H 03/05/19 01:51 Calcium 9.3 mg/dl (8.5-10.1) 03/05/19 01:51 POC Ioniz Calcium Amrcia 1.22 mmol/l (1.12-1.32) 03/05/19 01:51 Magnesium 2.2 mg/dl (1.8-2.4) 03/05/19 01:51 Total Bilirubin 0.5 mg/dl (0.2-1) 03/05/19 01:51 AST 15 U/L (15-37) 03/05/19 01:51 ALT 22 U/L (12-78) 03/05/19 01:51 Alkaline Phosphatase 143 U/L (45-117) H 03/05/19 01:51 POC Troponin I < 0.03 ng/ml (0-0.045) 03/05/19 01:53 Total Protein 7.4 gm/dl (6.4-8.2) 03/05/19 01:51 Albumin 3.4 gm/dl (3.4-5.0) 03/05/19 01:51 Globulin 4.0 gm/dl (2.5-4.0) 03/05/19 01:51 Albumin/Globulin Ratio 0.9 (0.9-2) 03/05/19 01:51 Lipase 23739 U/L (73-393) H 03/05/19 01:[address] chest initial read: No acute PE. Cardiomegaly. Diffuse bilateral groundglass opacity/central bronchial wall thickening may be secondary to low lung volumes/atelectasis. CT abdomen pelvis initial read: Interval cholecystectomy and placement of biliary stent extending from hilum into the second portion of the duodenum. No significant better ductal dilatation or drainable gallbladder fossa fluid collection. Pancreatic stent extending from pancreatic neck into the duodenum without ductal dilatation. Peripancreatic inflammatory stranding compatible with pancreatitis again seen overall mildly decreased from prior. 3 cm focal fluid collection inferior to the pancreatic tail with faint rim of enhancement likely representing developing pseudocyst. Abscess considered less likely. Postop changes in the anterior abdominal wall/umbilicus. EKG as per my interpretation: Rate 70, NSR, normal axis, T wave abnormalities inferior leads
[2019-03-05 05:42] LABS: Appearance Urine Clear (Clear); Bilirubin Urine Negative (Negative); Blood Urine Negative (Negative); Color Urine Yellow; Glucose Urine UA Negative (Negative); Ketones Urine Negative (Negative); Leukocyte Esterase Urine Negative (Negative); Nitrite Urine Negative (Negative); Protein Urine Negative (Negative); Specific Gravity Urine > 1.045 (1.000-1.030); Urobilinogen Urine Negative (Negative); pH Urine 6.5 (4.5-7.5)
--- NOTE | 2019-03-05 07:13 | CT Scan Report ---
CT ANGIOGRAM OF THE CHEST; CT SCAN OF THE ABDOMEN AND PELVIS WITH IV CONTRAST CLINICAL HISTORY: Dyspnea. Generalized abdominal pain. COMPARISON STUDY: Chest x-ray dated 02/14/2019. Abdominal CT dated 02/14/2019. TECHNIQUE: Following the IV administration of 119 of Optiray 320, CT angiogram of the chest is perfor med from the upper abdomen to the thoracic inlet utilizing the pulmonary embolus protocol. Images are reviewed in the axial, sagittal, coronal planes. 3-D MIPS images are created and assessed. Subsequen tly, CT scan of the abdomen and pelvis was performed from the lung bases to the proximal femora. Imag es are reviewed in the axial, sagittal, and coronal planes. IV contrast was administered without comp lication. A dose lowering technique was utilized adhering to the principles of ALARA. CT DOSE: 2203.09 mGy.cm FINDINGS: CHEST: Thyroid: Imaged portions of the thyroid gland are normal in size and attenuation. Thoracic aorta: There is mild aneurysmal dilatation of the ascending thoracic aorta which measures up to 4.0 cm. The remainder of the thoracic aorta is normal in caliber. The arch demonstrates standard 3-vessel anatomy. No dissection is seen. Pulmonary vasculature: The pulmonary trunk is normal in caliber. There are no filling defects identif ied in the main, lobar, or segmental pulmonary arteries to indicate pulmonary embolus. Heart: The heart is top normal in size and without pericardial effusion. Lungs and pleural spaces: Evaluation of the lung parenchyma is modestly degraded by motion artifact. There is no airspace consolidation or pleural effusion. Dependent atelectasis is noted. The trachea a nd central airways are clear. Mediastinum: There is no mediastinal lymphadenopathy. Herminia: Clear. Axillae: There is no axillary lymphadenopathy. Bony thorax: The skeletal structures are osteopenic. No lytic or blastic lesions are identified. ABDOMEN AND PELVIS: Liver: The contrast-enhanced liver is enlarged, measuring 20.1 cm in length. The liver is otherwise n ormal in contour and attenuation. There is no intrahepatic or ductal dilatation. The hepatic veins an d portal veins are patent. There is trace pneumobilia in the left lobe (axial image #118) Gallbladder: Surgically absent noting clips in the gallbladder fossa. A common bile duct stent is in place. Spleen: The spleen is mildly enlarged measuring 13.7 cm in length. Pancreas: The pancreas is normal in size. A stent is present within the proximal pancreatic duct exte nding into the duodenum. The pancreatic duct is normal in caliber. There is peripancreatic stranding and trace fluid. The appearance is consistent with acute pancreatitis. The gland enhances homogeneous ly. The splenic vein is patent. Adrenal glands: Unremarkable. Kidneys: The contrast enhanced kidneys are normal in size and without hydronephrosis. The kidneys enh ance symmetrically. Abdominal vasculature: The abdominal aorta is normal in course and caliber. Stomach and bowel: There is a small hiatal hernia. The stomach and duodenum are otherwise normal in c onfiguration. There is no bowel obstruction. Mild fecal retention is noted in the colon. The appendix is normal as visualized. Peritoneum: There is no intraperitoneal free air or abdominal ascites. There is a 3.5 x 2.0 cm periph erally enhancing pocket of fluid in the left midabdomen on image #199 inferior to the pancreatic tail . This may represent a developing pseudocyst. Periumbilical induration is likely related to recent la paroscopy port. Lymphadenopathy: None. Pelvic viscera: The bladder, uterus, and adnexa are normal as imaged. Skeletal structures: The skeletal structures are osteopenic. There is mild lumbosacral spondylosis. N o lytic or blastic lesions are seen. IMPRESSION: 1. There is no evidence of pulmonary embolus in the main, lobar, or segmental pulmonary arteries. 2. There is no airspace consolidation or pleural effusion. 3. There is mild aneurysmal dilatation of the ascending thoracic aorta which measures up to 4.0 cm. 4. Findings are consistent with acute pancreatitis. 5. There has been interval cholecystectomy from 02/14/2019. Stents are present within the common bile duct and the pancreatic duct. 6. The pancreas enhances homogeneously. 7. There is a 3.5 x 2.0 cm pocket of fluid in the left midabdomen inferior to the pancreatic tail. Th is likely represents a developing pseudocyst. The sterility of this collection cannot be assessed by CT. 8. Mild hepatosplenomegaly. 9. Additional findings as above. Electronically signed by: Nick Nascimento M.D. 03/05/2019 7:10 AM
[2019-03-05] MEDS ORDERED: LORazepam 0.5 MG/1 ML VIAL IV PRN (07:31)
[2019-03-05] MEDS: LACTATED RINGER'S 1,000 ML IV SCH ×4 (07:38→23:16)
[2019-03-05] MEDS ORDERED: INFLUENZA ADMINISTRATION CHARGE ONE (08:00)
[2019-03-05] MEDS ORDERED: INFLUENZA VIRUS QUAD VACCINE 0.5 ML SYR IM ONE (08:00)
[2019-03-05] MEDS ORDERED: ENOXAPARIN INJ 40 MG/0.4 ML SYR SQ SCH (09:00)
[2019-03-05 10:22] LABS: Estimated Average Glucose 120 mg/dl; Hemoglobin A1C 5.8 % (4.5-5.6)
[2019-03-05] MEDS: ACETAMINOPHEN 325 MG TAB PO PRN ×2 (10:22→21:11)
--- NOTE | 2019-03-05 11:39 | Gastrointestinal Consultation ---
Date of Consultation March 05, 2019 Assessment & Plan (1) Recurrent pancreatitis: (2) Acute pancreatitis: Recommend continuing supportive care with IVF, Antiemetics PRN and Pain control NPO today If patient develops worsening symptoms, increasing WBC Count or fevers, consider IR for aspiration of fluid collection Would hold on IV Abx for now Will reevaluate as needed during this hospitalization No need for invasive testing at present. (3) Pancreatic pseudocyst: History of Present Illness Reason for Consultation: Pancreatitis Attending Physician: Tk Robertson MD History of Present Illness Cydney Neely is a 53 yo CF who presented to the ER early this AM with severe abdominal pain and nausea. At the beginning of February she underwent an ERCP with stone extraction and stent placement to the CBD and PD secondary to gallstone pancreatitis. She subsequently underwent a Lap maya with Dr. Zimmer. Upon arrival to the ER, she was noted to have an elevated WBC count and elevated lipase. A CT scan in the ER did show evidence of pancreatitis, CBD and PD stents in place, and possible pseudocyst formation in the pancreatic tail. She was given Abx, IVF and admitted. At the time I saw Cydney, she was feeling much improved. She denied any nausea. She does still have some mid- epigastric pain, 4/10 in intensity, non-radiating, without alleviating or exacerbating factors. She denies any jaundice, acholic stools, dark urine or pruritus. She further denies any hematemesis, melena or hematochezia. She has no further complaints. Allergies Allergy/AdvReac Type Severity Reaction Status Date / Time Sulfa (Sulfonamide Allergy Severe HIVES Verified 03/05/19 01:50 Antibiotics) sulfamethoxazole Allergy Severe Hives Verified 03/05/19 01:50 Home Medications Home Medications Medication Instructions Recorded Confirmed Type pantoprazole 40 mg PO HS 02/14/19 03/05/19 History polyethylene glycol 3350 [Miralax] 17 g PO DAILY PRN #30 ea 02/18/19 03/05/19 Rx Patient History Medical History GERD (gastroesophageal reflux disease) (Chronic) No pertinent past medical history Obesity (Chronic) BEAU (obstructive sleep apnea) (Chronic) Not on CPAP Recurrent sinusitis (Chronic) Surgical History History of arthroscopy of knee (Chronic) History of arthroscopy of shoulder (Chronic) History of (Chronic) x 3 History of ERCP No pertinent past surgical history Family History Grandfather (Maternal) Stroke Brother Diabetes Other Cancer Social History Preferred Language: Faroese Communication Ability: Effective 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 Beliefs That Will Affect Care: None Current Living Situation: Spouse Other Information That Helps Us Care for You: No Feels Safe at Home: Yes Safety Concerns: Feels Safe At This Time Smoking Status: Never smoker Do You Dip or Chew Tobacco: No ; Second Hand Exposure: No ; Tobacco Cessation Education Requested by Patient: No Hx Alcohol Use: Yes Alcohol type: wine Hx Substance Use: No Review of Systems Review of Systems: All systems reviewed & are unremarkable except as noted in HPI & below Physical Exam Constitutional: + obese; no acute distress Eyes: PERRL, conjunctivae normal, anicteric sclerae ENMT: external ear and nose normal, oropharynx normal Neck: trachea midline, no thyromegaly Respiratory: normal respiratory effort, lungs clear to auscultation Cardiovascular: RRR, no murmur, no edema Gastrointestinal (Abdomen): Inspection/Auscultation: abdomen normal to inspection and normal bowel sounds Percussion/Palpation: + abdomen tender (Midabdomen) and abdomen soft Skin: no rashes, warm and dry Psychiatric: A+Ox3, euthymic affect Results & Data Vital Signs (Past 12 Hours) Vital Signs Temp Pulse Pulse Resp BP BP Pulse Ox 03/05/19 06:00 71 14 131/94 95 03/05/19 05:00 67 16 124/88 97 03/05/19 04:00 64 18 162/93 H 96 03/05/19 01:23 36.3 C L 70 16 181/92 H 99 PG Care Time/CCT Total # of Minutes Spent Total Time Spent with Patient: Total time spent is greater than 50% in coordination of care (as documented) at patient's floor/unit and/or counseling patient: (1) Acute pancreatitis Acute pancreatitis complication: unspecified Pancreatitis type: unspecified pancreatitis type Qualified Code(s): K85.90 - Acute pancreatitis without necrosis or infection, unspecified
--- NOTE | 2019-03-05 15:32 | Ultrasound Report ---
ULTRASOUND BILATERAL LOWER EXTREMITY VENOUS CLINICAL HISTORY: Elevated d-dimer. COMPARISON STUDY: No priors. TECHNIQUE: Real-time, grayscale, and color Doppler sonography of the deep veins of the right and left lower extremity was performed from the inguinal crease to the calf. Compression and augmentation wer e utilized. FINDINGS: Right lower extremity: There is occlusive deep venous thrombosis in the right calf within a posterior tibial vein. Remaining calf vessels are clear. No above knee deep venous thrombosis is identified. T he common femoral, superficial femoral, and popliteal veins are patent and normally compressible. The greater saphenous vein and the profunda femoris vein at the junction with the common femoral vein ar e clear. A minimally complex popliteal cyst measures 5.0 x 2.4 x 3.7 cm. Left lower extremity: There is no sonographic evidence of deep venous thrombosis in the left lower ex tremity. The common femoral, superficial femoral, and popliteal veins are patent and normally christian sible. The greater saphenous vein and the profunda femoris vein at the junction with the common femor al vein are clear. The visualized calf veins are patent. IMPRESSION: 1. There is occlusive deep venous thrombosis identified in the right calf within a posterior tibial v ein. 2. The remaining deep veins of the right lower extremity are clear. 3. There is no sonographic evidence of deep venous thrombosis in the left lower extremity. 4. A popliteal cyst is noted on the right. Electronically signed by: Nick Nascimento M.D. 03/05/2019 3:31 PM
[2019-03-05 17:08] LABS: Basophils # (auto) 0.05 K/uL (0-0.2); Basophils % (auto) 0.5 %; Eosinophils # (auto) 0.43 K/uL (0-0.5); Eosinophils % (auto) 4.1 %; Hematocrit (blood only) 37.1 % (37-47); Hemoglobin 12.6 g/dL (12.0-16.0); Immature Granulocytes # (auto) 0.03 K/uL (0.00-0.02); Immature Granulocytes % (auto) 0.3 %; Lymphocytes # (auto) 2.03 K/uL (1.2-3.4); Lymphocytes % (auto) 19.6 %; Mean Corpuscular Hemoglobin 27.6 pg (25-34); Mean Corpuscular Volume 81.4 fL (80-100); Monocytes # (auto) 0.56 K/uL (0.11-0.59); Monocytes % (auto) 5.4 %; Neutrophils # (auto) 7.28 K/uL (1.4-6.5); Neutrophils % (auto) 70.1 %; Platelet Count 303 K/uL (130-400); RDW Standard Deviation 38.5 fL (36.4-46.3); Red Blood Count 4.56 M/uL (4.2-5.4); White Blood Count 10.38 K/uL (4.8-10.8)
[2019-03-05 17:18] LABS: Partial Thromboplastin Ratio 0.9; Partial Thromboplastin Time 25.6 Seconds (21.0-31.0); Prothrombin Time 10.6 Seconds (9.0-12.0)
[2019-03-05] MEDS: Heparin IV Standard *NO* Bolus IV SCH ×3 (17:31→17:45)
[2019-03-05] MEDS: HEPARIN SODIUM/DEXTROSE 25,000 UNITS/500 ML BAG IV SCH (17:35)
--- NOTE | 2019-03-05 17:43 | Hospitalist Progress Note ---
Date of Service March 05, 2019 Assessment & Plan (1) Recurrent pancreatitis: Acute pancreatitis Developing pancreatic pseudocyst H/O recurrent pancreatitis --CT ABD:There is no evidence of pulmonary embolus in the main, lobar, or segmental pulmonary arteries. There is no airspace consolidation or pleural effusion. There is mild aneurysmal dilatation of the ascending thoracic aorta which measures up to 4.0 cm. Findings are consistent with acute pancreatitis. There has been interval cholecystectomy from 02/14/2019. Stents are present within the common bile duct and the pancreatic duct. The pancreas enhances homogeneously. There is a 3.5 x 2.0 cm pocket of fluid in the left midabdomen inferior to the pancreatic tail. This likely represents a developing pseudocyst. The sterility of this collection cannot be assessed by CT. Mild hepatosplenomegaly. --H/O Recent gallstone pancreatitis/cholecystitis status post cholecystectomy --Continue IV fluids, n.p.o., pain control --No antibiotics for now --Appreciate GI input --May need aspiration of fluid collection if develops any signs of sepsis Acute RLE DVT --Venous Doppler:There is occlusive deep venous thrombosis identified in the right calf within a posterior tibial vein. The remaining deep veins of the right lower extremity are clear. There is no sonographic evidence of deep venous thrombosis in the left lower extremity. A popliteal cyst is noted on the right. 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 GERD On PPI DVT Px: IV Heparin Code Status Full code Disposition Likely discharge home when medically stable Subjective Patient is seen and examined at bedside Abdominal pain is better Reports having headache Denies any chest pain, shortness of breath, and dizziness, nausea Venous Doppler suggestive of acute DVT Plan to start on IV heparin Review of Systems Review of Systems: All systems reviewed & are unremarkable except as noted in HPI & below Physical Exam Physical Exam: Physical Exam: Vitals signs as noted above General Appearance:Obese, no apparent distress Head: normocephalic, Atraumatic Eyes: normal inspection, EOMI Neck: supple, Trachea midline Respiratory/Chest: Normal breath sounds, CTA Cardiovascular: S1, S2, No murmur Abdomen/GI:Soft, mild generalized tender, no guarding or rigidity, bowel sounds present Extremities/Musculoskelatal:normal inspection, no edema Neurologic/Psych:AAOX3, grossly no focal neurological deficits Skin: normal color, warm Results & Data Vital Signs (Past 12 Hours) Vital Signs Temp Pulse Pulse Resp BP BP Pulse Ox 03/05/19 15:42 36.8 C 67 16 162/83 H 97 03/05/19 06:00 71 14 131/94 95 Laboratory Results Short CBC 03/05/19 03/05/19 Range/Units 01:51 16:51 WBC 14.77 H 10.38 (4.8-10.8) K/uL Hgb 13.6 12.6 (12.0-16.0) g/dL Hct 38.8 37.1 (37-47) % Plt Count 380 303 (130-400) K/uL BMP 03/05/19 01:51 Sodium 139 Potassium 3.8 Chloride 107 Carbon Dioxide 26 BUN 13 Creatinine 0.68 Glucose 133 H Calcium 9.3 Liver Function 03/05/19 Range/Units 01:51 Total Bilirubin 0.5 (0.2-1) mg/dl AST 15 (15-37) U/L ALT 22 (12-78) U/L Alkaline Phosphatase 143 H (45-117) U/L Albumin 3.4 (3.4-5.0) gm/dl Urine 03/05/19 Range/Units 04:17 Urine Color Yellow Urine Appearance Clear (Clear) Urine pH 6.5 (4.5-7.5) Ur Specific [place] > 1.045 H (1.000-1.030) Urine Protein Negative (Negative) Urine Glucose (UA) Negative (Negative)
[2019-03-05] MEDS: PANTOprazole 40 MG TAB PO SCH (21:11)
[2019-03-05] MEDS: TRAMADOL HCL 50 MG TABLET PO PRN (23:25)
[2019-03-05 23:49] LABS: Partial Thromboplastin Ratio 1.4; Partial Thromboplastin Time 38.4 Seconds (21.0-31.0)
[2019-03-06] MEDS ORDERED: HEPARIN IV BOLUS 6,000 UNITS in SYRINGE 0 ML IV ONE (00:30)
[2019-03-06] MEDS: LACTATED RINGER'S 1,000 ML IV SCH ×4 (04:19→19:26)
[2019-03-06] MEDS: TRAMADOL HCL 50 MG TABLET PO PRN ×2 (04:23→09:04)
[2019-03-06 06:24] LABS: Basophils # (auto) 0.05 K/uL (0-0.2); Basophils % (auto) 0.6 %; Eosinophils # (auto) 0.57 K/uL (0-0.5); Eosinophils % (auto) 7.3 %; Hematocrit (blood only) 34.3 % (37-47); Hemoglobin 11.8 g/dL (12.0-16.0); Immature Granulocytes # (auto) 0.02 K/uL (0.00-0.02); Immature Granulocytes % (auto) 0.3 %; Lymphocytes # (auto) 2.53 K/uL (1.2-3.4); Lymphocytes % (auto) 32.4 %; Mean Corpuscular Hemoglobin 27.8 pg (25-34); Mean Corpuscular Hgb Conc 34.4 g/dL (32-36); Mean Corpuscular Volume 80.9 fL (80-100); Mean Platelet Volume 9.2 fL (7.4-10.4); Monocytes # (auto) 0.54 K/uL (0.11-0.59); Monocytes % (auto) 6.9 %; Neutrophils % (auto) 52.5 %; Platelet Count 265 K/uL (130-400); RDW Coefficient of Variation 12.8 % (11.5-14.5); RDW Standard Deviation 37.6 fL (36.4-46.3); Red Blood Count 4.24 M/uL (4.2-5.4); White Blood Count 7.81 K/uL (4.8-10.8)
[2019-03-06 06:59] LABS: Albumin Globulin Ratio 0.8 (0.9-2); Albumin Level 2.6 gm/dl (3.4-5.0); BUN Creatinine Ratio 8.9 (10-20); Bilirubin,Total 0.6 mg/dl (0.2-1); Calcium 8.8 mg/dl (8.5-10.1); Creatinine Clr Calc Pharmacy 142.1 ml/min; Est GFR (African American) 121.7; Globulin 3.5 gm/dl (2.5-4.0); Potassium 3.4 mmol/L (3.5-5.1); Total Protein 6.1 gm/dl (6.4-8.2)
[2019-03-06 07:07] LABS: Partial Thromboplastin Time 107.3 Seconds (21.0-31.0)
[2019-03-06] MEDS ORDERED: POTASSIUM CHLORIDE 20 MEQ TABCR PO STA (09:11)
[2019-03-06] MEDS: HEPARIN SODIUM/DEXTROSE 25,000 UNITS/500 ML BAG IV SCH (10:49)
[2019-03-06] MEDS ORDERED: BUTALBITAL/ACETAMIN/CAFFEINE TAB PO PRN (11:03)
[2019-03-06] MEDS ORDERED: FLUDROCORTISONE ACETATE 0.1 MG TAB PO SCH (11:30)
--- NOTE | 2019-03-06 11:32 | Gastroenterology Progress Note ---
Date of Service March 06, 2019 Assessment & Plan (1) Pancreatic pseudocyst: (2) Acute pancreatitis: Feeling much better today. Advance diet to clear liquids Will need repeat Pancreatic imaging in the next few weeks, sooner, if symptoms worsen. Followup with Dr. Lugo as an outpatient [facility] will resume care on 03/07/2019 Subjective Feeling much better today. Denies any abdominal pain, though complains of a headache and sinus pressure. No BM's overnight. She denies fevers, chills, nausea, vomiting, hematemesis, melena or hematochezia. Review of Systems Review of Systems: All systems reviewed & are unremarkable except as noted in HPI & below Physical Exam Constitutional: + obese Respiratory: normal respiratory effort, lungs clear to auscultation Cardiovascular: RRR, no murmur, no edema Gastrointestinal (Abdomen): Inspection/Auscultation: abdomen normal to inspection and normal bowel sounds Percussion/Palpation: + abdomen tender (RUQ) and abdomen soft Results & Data Vital Signs (Past 12 Hours) Vital Signs Temp Pulse Resp BP Pulse Ox 03/06/19 07:36 36.7 C 70 18 136/85 93 PG Care Time/CCT Total # of Minutes Spent Total Time Spent with Patient: Total time spent is greater than 50% in coordination of care (as documented) at patient's floor/unit and/or counseling patient: (1) Acute pancreatitis Acute pancreatitis complication: unspecified Pancreatitis type: unspecified pancreatitis type Qualified Code(s): K85.90 - Acute pancreatitis without necrosis or infection, unspecified
[2019-03-06] MEDS: AMOXICILLIN/CLAVULANATE 500 MG TAB PO SCH ×2 (12:50→19:27)
[2019-03-06 13:39] LABS: Partial Thromboplastin Time 54.3 Seconds (21.0-31.0)
--- NOTE | 2019-03-06 18:37 | Hospitalist Progress Note ---
Date of Service March 06, 2019 Assessment & Plan (1) Recurrent pancreatitis: Acute pancreatitis Developing pancreatic pseudocyst H/O recurrent pancreatitis --CT ABD:There is no evidence of pulmonary embolus in the main, lobar, or segmental pulmonary arteries. There is no airspace consolidation or pleural effusion. There is mild aneurysmal dilatation of the ascending thoracic aorta which measures up to 4.0 cm. Findings are consistent with acute pancreatitis. There has been interval cholecystectomy from 02/14/2019. Stents are present within the common bile duct and the pancreatic duct. The pancreas enhances homogeneously. There is a 3.5 x 2.0 cm pocket of fluid in the left midabdomen inferior to the pancreatic tail. This likely represents a developing pseudocyst. The sterility of this collection cannot be assessed by CT. Mild hepatosplenomegaly. --H/O Recent gallstone pancreatitis/cholecystitis status post cholecystectomy --Continue IV fluids --Lipase levels improved --Clear liquid diet today --No antibiotics for now --Appreciate GI input --May need aspiration of fluid collection if develops any signs of sepsis Acute RLE DVT --Venous Doppler:There is occlusive deep venous thrombosis identified in the right calf within a posterior tibial vein. The remaining deep veins of the right lower extremity are clear. There is no sonographic evidence of deep venous thrombosis in the left lower extremity. A popliteal cyst is noted on the right. 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 GERD On PPI DVT Px: IV Heparin Code Status Full code Disposition Likely discharge home when medically stable Subjective Patient is seen and examined at bedside Abdominal pain much improved Complains of having sore throat, sinus pressure, tenderness associated with headache Denies any chest pain, shortness of breath, and dizziness, nausea On IV heparin No bleeding issues Review of Systems Review of Systems: All systems reviewed & are unremarkable except as noted in HPI & below Physical Exam Physical Exam: Physical Exam: Vitals signs as noted above General Appearance:Obese, no apparent distress Head: normocephalic, Atraumatic Eyes: normal inspection, EOMI Neck: supple, Trachea midline Respiratory/Chest: Normal breath sounds, CTA Cardiovascular: S1, S2, No murmur Abdomen/GI:Soft, mild generalized tender, no guarding or rigidity, bowel sounds present Extremities/Musculoskelatal:normal inspection, no edema Neurologic/Psych:AAOX3, grossly no focal neurological deficits Skin: normal color, warm Results & Data Vital Signs (Past 12 Hours) Vital Signs Temp Pulse Resp BP Pulse Ox 03/06/19 15:13 36.6 C 59 L 16 150/93 H 92 03/06/19 07:36 36.7 C 70 18 136/85 93 Laboratory Results Short CBC 03/06/19 Range/Units 06:13 WBC 7.81 (4.8-10.8) K/uL Hgb 11.8 L (12.0-16.0) g/dL Hct 34.3 L (37-47) % Plt Count 265 (130-400) K/uL BMP 03/06/19 06:13 Sodium 139 Potassium 3.4 L Chloride 105 Carbon Dioxide 27 BUN 5 L D Creatinine 0.56 L Glucose 83 Calcium 8.8 Liver Function 03/06/19 Range/Units 06:13 Total Bilirubin 0.6 (0.2-1) mg/dl AST 15 (15-37) U/L ALT 18 (12-78) U/L Alkaline Phosphatase 124 H (45-117) U/L Albumin 2.6 L (3.4-5.0) gm/dl
[2019-03-06] MEDS: PANTOprazole 40 MG TAB PO SCH (21:03)
[2019-03-06] MEDS: ACETAMINOPHEN 325 MG TAB PO PRN (23:42)
[2019-03-07] MEDS: LACTATED RINGER'S 1,000 ML IV SCH ×2 (02:50→07:04)
[2019-03-07] MEDS: HEPARIN SODIUM/DEXTROSE 25,000 UNITS/500 ML BAG IV SCH (03:50)
[2019-03-07 06:27] LABS: Hematocrit (blood only) 34.5 % (37-47); Hemoglobin 11.9 g/dL (12.0-16.0); Mean Corpuscular Hemoglobin 27.9 pg (25-34); Mean Corpuscular Hgb Conc 34.5 g/dL (32-36); Mean Platelet Volume 9.3 fL (7.4-10.4); Platelet Count 253 K/uL (130-400); RDW Coefficient of Variation 12.9 % (11.5-14.5); RDW Standard Deviation 37.8 fL (36.4-46.3); Red Blood Count 4.26 M/uL (4.2-5.4); White Blood Count 5.61 K/uL (4.8-10.8)
[2019-03-07 06:46] LABS: Partial Thromboplastin Ratio 1.9
[2019-03-07 06:57] LABS: Partial Thromboplastin Time 52.7 Seconds (21.0-31.0)
[2019-03-07 07:02] LABS: BUN Creatinine Ratio 7.5 (10-20); Calcium 8.9 mg/dl (8.5-10.1); Creatinine Clr Calc Pharmacy 150.1 ml/min; Est GFR (African American) 123.9; Est GFR (Non-African American) 106.9; Potassium 3.4 mmol/L (3.5-5.1)
[2019-03-07] MEDS: AMOXICILLIN/CLAVULANATE 500 MG TAB PO SCH ×2 (09:17→16:39)
--- NOTE | 2019-03-07 09:20 | Gastroenterology Progress Note ---
Date of Service March 07, 2019 Assessment & Plan (1) Acute pancreatitis: 53 year old female admitted w/ history of gallstone pancreatitis s/p ERCP w/ stent placement and cholecystectomy in February readmitted w/ recurrent pancreatitis, lipase 19,000 but normal LFTs w/ CT evidence of acute pancreatitis and new 3.5 x 2.0 cm pocket of fluid in the left midabdomen inferior to the pancreatic tail, concerning for a developing pseudocyst. She was started on IVF and made NPO for bowel rest, she is clinically improving w/ resolution of her pain. She has remained afebrile without leukocytosis. Agree w/ LR for IVF Antiemetics PRN Analgesia PRN Low fat diet as tolerated Will need OP CTAP in about 3/4 weeks to reassess fluid collection If patient develops worsening symptoms, increasing WBC Count or fevers, consider transfer for IR evaluation Would hold on IV Abx for now Will send tiger text to her regular GI providers, but for now will keep OP ERCP as scheduled. Thank you for allowing us to participate in the care of this patient. Please call with any acute changes, questions or concerns. Please see addendum below with additional recommendation from my supervising physician. Attg add: I interviewed and examined pt, reviewed chart and labs. Pt with recent admit cholangitis, GSP s/p ERCP/stent and maya now with recurrent panc. She is improved, with little pain and starting to dejon PO. Will request MRCP - PD stricture? Anticipate d/c tomorrow. Present on Admission?: Yes (2) Recurrent pancreatitis: Present on Admission?: Yes Subjective Pt was seen and evaluated, chart reviewed. Abd pain is improved, nearly fully resolved. No nausea, vomiting. tolerating clears moving bowels No fever, chills, CP, SOB Is on Iv heparin for acute RLE DVT No ETOH Only new med is pantoprazole Review of Systems Constitutional: no fever, no chills and no fatigue Respiratory: no cough and no dyspnea Cardiovascular: no chest pain and no dyspnea Gastrointestinal: no abdominal pain, no heartburn, no nausea, no vomiting, no coffee ground emesis, no blood in stools and no melena Physical Exam Constitutional: WD/WN, vitals as above Neck: trachea midline Respiratory: normal respiratory effort Cardiovascular: Rate/Rhythm: regular rate and regular rhythm Gastrointestinal (Abdomen): normal bowel sounds, soft, nontender, no hepatosplenomegaly Results & Data Vital Signs (Past 12 Hours) Vital Signs Temp Pulse Pulse Resp BP Pulse Ox 03/07/19 07:56 36.4 C L 64 18 142/82 H 95 03/06/19 23:13 36.9 C 61 16 144/83 H 93 (1) Acute pancreatitis Acute pancreatitis complication: unspecified Pancreatitis type: unspecified pancreatitis type Qualified Code(s): K85.90 - Acute pancreatitis without necrosis or infection, unspecified
[2019-03-07] MEDS ORDERED: LACTATED RINGER'S 1,000 ML IV SCH (09:30)
[2019-03-07] MEDS ORDERED: POTASSIUM CHLORIDE 20 MEQ TABCR PO ONE (09:45)
[2019-03-07] MEDS: APIXABAN 5 MG TABLET PO SCH ×2 (12:58→21:31)
[2019-03-07] MEDS ORDERED: LORazepam 0.5 MG/1 ML VIAL IV ONE (14:45)
--- NOTE | 2019-03-07 17:21 | Hospitalist Progress Note ---
Date of Service March 07, 2019 Assessment & Plan (1) Recurrent pancreatitis: Acute pancreatitis Developing pancreatic pseudocyst H/O recurrent pancreatitis --CT ABD:There is no evidence of pulmonary embolus in the main, lobar, or segmental pulmonary arteries. There is no airspace consolidation or pleural effusion. There is mild aneurysmal dilatation of the ascending thoracic aorta which measures up to 4.0 cm. Findings are consistent with acute pancreatitis. There has been interval cholecystectomy from 02/14/2019. Stents are present within the common bile duct and the pancreatic duct. The pancreas enhances homogeneously. There is a 3.5 x 2.0 cm pocket of fluid in the left midabdomen inferior to the pancreatic tail. This likely represents a developing pseudocyst. The sterility of this collection cannot be assessed by CT. Mild hepatosplenomegaly. --H/O Recent gallstone pancreatitis/cholecystitis status post cholecystectomy --MRCP pending --Continue IV fluids --Lipase levels improved --Advance to low fat diet as tolerated --No antibiotics for now --Appreciate GI input --Will need outpatient CT Arterial Portography in 3-4 weeks to reassess fluid collection Acute RLE DVT --Venous Doppler:There is occlusive deep venous thrombosis identified in the right calf within a posterior tibial vein. The remaining deep veins of the right lower extremity are clear. There is no sonographic evidence of deep venous thrombosis in the left lower extremity. A popliteal cyst is noted on the right. 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 today Abdominal pain continues to improve No nausea vomiting today Discussed with GI today Sore throat, sinus pressure, headache improved No bleeding issues Review of Systems Review of Systems: All systems reviewed & are unremarkable except as noted in HPI & below Physical Exam Physical Exam: Physical Exam: Vitals signs as noted above General Appearance:Obese, no apparent distress Head: normocephalic, Atraumatic Eyes: normal inspection, EOMI Neck: supple, Trachea midline Respiratory/Chest: Normal breath sounds, CTA Cardiovascular: S1, S2, No murmur Abdomen/GI:Soft, mild generalized tender, no guarding or rigidity, bowel sounds present Extremities/Musculoskelatal:normal inspection, no edema Neurologic/Psych:AAOX3, grossly no focal neurological deficits Skin: normal color, warm Results & Data Vital Signs (Past 12 Hours) Vital Signs Temp Pulse Pulse Resp BP Pulse Ox 03/07/19 15:42 36.4 C L 65 16 135/86 95 03/07/19 07:56 36.4 C L 64 18 142/82 H 95 Laboratory Results Short CBC 03/07/19 Range/Units 06:01 WBC 5.61 (4.8-10.8) K/uL Hgb 11.9 L (12.0-16.0) g/dL Hct 34.5 L (37-47) % Plt Count 253 (130-400) K/uL BMP 03/07/19 06:01 Sodium 139 Potassium 3.4 L Chloride 106 Carbon Dioxide 27 BUN 4 L Creatinine 0.53 L Glucose 99 Calcium 8.9
[2019-03-07] MEDS: PANTOprazole 40 MG TAB PO SCH (21:31)
--- NOTE | 2019-03-07 22:42 | Magnetic Resonance Report ---
MRCP CLINICAL HISTORY: Recurrent pancreatitis status post cholecystectomy and ERCP. COMPARISON STUDY: Abdominal CT dated 03/05/2019. TECHNIQUE: Abdominal MRCP is performed utilizing various T2-weighted sequences in the axial and coron al planes. IV contrast was not administered for this examination. 3-D reformats are created and asses sed. FINDINGS: The gallbladder is surgically absent. There is no intrahepatic or extrahepatic biliary ductal dilatat ion. The common bile duct is normal in caliber measuring up to 3.5 mm in diameter. There are no filli ng defects to indicate choledocholithiasis. The pancreatic duct is normal in caliber. There are trace pleural effusions. The unenhanced liver, spleen, adrenal glands, and kidneys are joe sly unremarkable. There is no abdominal ascites. There is mild infiltration and trace fluid seen around the pancreas, greatest around the distal body and tail. No organized peripancreatic fluid collection is identified. The splenic vein appears patent . No abdominal lymphadenopathy is seen. The abdominal aorta is normal in caliber. There is no evidenc e of bowel obstruction. IMPRESSION: 1. Status post cholecystectomy. 2. Otherwise normal MRCP. 3. Findings are consistent with mild acute pancreatitis. 4. Trace pleural effusions. 5. The common bile duct stent and pancreatic duct stents seen on the 03/05/2019 CT scan are not well- visualized. Dictated: 03/07/2019 9:50 PM Transcribed: 03/07/2019 10:24 PM Negin [id number] [email or web address] Electronically signed by: Nick Nascimento M.D. 03/07/2019 10:41 PM
[2019-03-08 07:06] VITALS: BP 148/92; TEMP 98.6; O2SAT 93
[2019-03-08 08:16] LABS: Partial Thromboplastin Time 28.3 Seconds (21.0-31.0)
[2019-03-08] MEDS: AMOXICILLIN/CLAVULANATE 500 MG TAB PO SCH (08:33)
[2019-03-08] MEDS: APIXABAN 5 MG TABLET PO SCH (08:33)
[2019-03-08 08:56] LABS: BUN Creatinine Ratio 6.5 (10-20); Calcium 9.4 mg/dl (8.5-10.1); Creatinine Clr Calc Pharmacy 124.3 ml/min; Est GFR (African American) 116.4; Est GFR (Non-African American) 100.5; Potassium 3.8 mmol/L (3.5-5.1)
--- NOTE | 2019-03-08 10:41 | Gastroenterology Progress Note ---
Date of Service March 08, 2019 Assessment & Plan (1) Acute pancreatitis: 53 year old female admitted w/ history of gallstone pancreatitis s/p ERCP w/ stent placement and cholecystectomy in February readmitted w/ recurrent pancreatitis, lipase 19,000 but normal LFTs w/ CT evidence of acute pancreatitis and new 3.5 x 2.0 cm pocket of fluid in the left midabdomen inferior to the pancreatic tail, concerning for a developing pseudocyst. She was started on IVF and made NPO for bowel rest, she is clinically improving w/ resolution of her pain. She has remained afebrile without leukocytosis. Today tolerating low-fat breakfast and continues without abd pain, n/v. Anticipates DC possibly today. MRCP yesterday demonstrates mild acute pancreatitis with trace fluid/mild pancreatic infiltration but no organized peripancreatic fluid collection; normal PD diameter. Continue low fat diet as tolerated Will need OP CTAP to reassess fluid collection; this has been ordered Repeat ERCP has been scheduled as an outpatient No GI contraindication for discharge If patient develops worsening symptoms, increasing WBC Count or fevers, consider transfer for IR evaluation GI will sign off. Thank you for allowing us to participate in the care of this patient. Please call with any acute changes, questions or concerns. Please see addendum below with additional recommendation from my supervising physician. Attg add: I interviewed and examined pt, reviewed chart and labs. Pt dejon PO, no abd pain. MRCP shows no PD obstruction, no CBD obstruction; of note, stents were not seen. OK for d/c with f/u as outlined above. (2) Recurrent pancreatitis: Subjective Pt seen and evaluated today, chart reviewed. This AM feeling well; continues without abd pain, n/v. Tolerating low-fat breakfast. Moving bowels; soft,brown, denies melena, hematochezia, abd distention, bloating, gas, fever, chills. MRCP yesterday revealed mild infiltration and trace fluid seen around the pancreas without organized peripancreatic fluid collection; normal caliber of pancreatic duct. Review of Systems Constitutional: no fever, no chills, no malaise and no anorexia Respiratory: no cough and no dyspnea Cardiovascular: no chest pain, no dyspnea on exertion and no edema Gastrointestinal: as per Subjective / HPI no abdominal distention Genitourinary: no dysuria Integumentary: no pruritus and no yellowing of the skin Neurologic: no tremor Physical Exam Constitutional: WD/WN, vitals as above Eyes: sclerae not anicteric Respiratory: normal respiratory effort, lungs clear to auscultation Cardiovascular: RRR, no murmur, no edema Gastrointestinal (Abdomen): normal bowel sounds, soft, nontender, no hepatosplenomegaly Skin: no jaundice Psychiatric: A+Ox3, euthymic affect Results & Data Vital Signs (Past 12 Hours) Vital Signs Temp Pulse Resp BP Pulse Ox 03/08/19 07:05 37 C 70 18 148/92 H 93 Laboratory Results 03/08/19 03/08/19 Range/Units 07:46 07:46 APTT 28.3 (21.0-31.0) Seconds PTT Ratio 1.0 Sodium 139 (136-145) mmol/L Potassium 3.8 (3.5-5.1) mmol/L Chloride 107 (98-107) mmol/L Carbon Dioxide 24 (21-32) mmol/L Anion Gap 8.0 (3-11) BUN 4 L (7-18) mg/dl Creatinine 0.64 (0.6-1.2) mg/dl Est Cr Clr Drug Dosing 124.3 ml/min Est GFR ( Amer) 116.4 Est GFR (Non-Af Amer) 100.5 BUN/Creatinine Ratio 6.5 L (10-20) Glucose 98 (70-99) mg/dl Calcium 9.4 (8.5-10.1) mg/dl Diagnostic Findings MRCP 03/07/19: 1. Status post cholecystectomy. 2. Otherwise normal MRCP. 3. Findings are consistent with mild acute pancreatitis. 4. Trace pleural effusions. 5. The common bile duct stent and pancreatic duct stents seen on the 03/05/2019 CT scan are not well-visualized. (1) Acute pancreatitis Acute pancreatitis complication: unspecified Pancreatitis type: unspecified pancreatitis type Qualified Code(s): K85.90 - Acute pancreatitis without necrosis or infection, unspecified
--- NOTE | 2019-03-08 13:30 | Hospitalist Progress Note ---
Date of Service March 08, 2019 Assessment & Plan (1) Recurrent pancreatitis: Acute pancreatitis Developing pancreatic pseudocyst H/O recurrent pancreatitis --CT ABD:There is no evidence of pulmonary embolus in the main, lobar, or segmental pulmonary arteries. There is no airspace consolidation or pleural effusion. There is mild aneurysmal dilatation of the ascending thoracic aorta which measures up to 4.0 cm. Findings are consistent with acute pancreatitis. There has been interval cholecystectomy from 02/14/2019. Stents are present within the common bile duct and the pancreatic duct. The pancreas enhances homogeneously. There is a 3.5 x 2.0 cm pocket of fluid in the left midabdomen inferior to the pancreatic tail. This likely represents a developing pseudocyst. The sterility of this collection cannot be assessed by CT. Mild hepatosplenomegaly. --H/O Recent gallstone pancreatitis/cholecystitis status post cholecystectomy --MRCP: Status post cholecystectomy. Otherwise normal MRCP. Findings are consistent with mild acute pancreatitis. Trace pleural effusions. The common bile duct stent and pancreatic duct stents seen on the 03/05/2019 CT scan are not well-visualized. --Received IV fluids --Lipase levels improved --Advanced to low fat diet --No antibiotics --Appreciate GI input --Will need outpatient CT Arterial Portography in 3-4 weeks to reassess fluid collection Acute RLE DVT --Venous Doppler:There is occlusive deep venous thrombosis identified in the right calf within a posterior tibial vein. The remaining deep veins of the right lower extremity are clear. There is no sonographic evidence of deep venous thrombosis in the left lower extremity. A popliteal cyst is noted on the right. 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 GERD On PPI DVT Px: Eliquis Code Status Full code Disposition Plan to discharge home today Subjective Patient is seen and examined at bedside Doing well today Tolerated regular diet Abdominal pain much improved Offers no other complaints Review of Systems Review of Systems: All systems reviewed & are unremarkable except as noted in HPI & below Physical Exam Physical Exam: Physical Exam: Vitals signs as noted above General Appearance:Obese, no apparent distress Head: normocephalic, Atraumatic Eyes: normal inspection, EOMI Neck: supple, Trachea midline Respiratory/Chest: Normal breath sounds, CTA Cardiovascular: S1, S2, No murmur Abdomen/GI:Soft, mild epigastric discomfort, no guarding or rigidity, bowel sounds present Extremities/Musculoskelatal:normal inspection, no edema Neurologic/Psych:AAOX3, grossly no focal neurological deficits Skin: normal color, warm Results & Data Vital Signs (Past 12 Hours) Vital Signs Temp Pulse Resp BP Pulse Ox 03/08/19 07:05 37 C 70 18 148/92 H 93 Laboratory Results [facility] 03/08/19 07:46 Sodium 139 Potassium 3.8 Chloride 107 Carbon Dioxide 24 BUN 4 L Creatinine 0.64 Glucose 98 Calcium 9.4
--- NOTE | 2019-03-08 13:39 | Discharge Summary ---
Date of Service March 08, 2019 Admission HPI Per Admitting Provider History obtained from patient and records. Medical history significant for BEAU, GERD, history of gallstone pancreatitis. Recent confinement 2 weeks ago for gallstone pancreatitis/cholecystitis status post ERCP with sphincterotomy, status post laparoscopic cholecystectomy. Bloated feeling at home as per patient. Compliant with bland diet instructions. No recent alcohol intake. Doing well postop on follow-up visit with surgeon last week as per outpatient note. Yesterday, patient noted sharp epigastric pain with shortness of breath going to her back, with nausea, no emesis, good BM. No fever, no chills. Patient consulted emergency room. Patient given Zosyn for possible developing pseudocyst on CT. 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 Admission Exam Per Admitting Provider Physical Exam Physical Exam: GENERAL: Comfortable, obese, looks younger than stated age, no respiratory distress SKIN: Normal color, warm HEENT: [place] palpebral conjunctivae, no ptosis, dry buccal mucosa NECK : Supple, short neck, no tenderness CHEST : CTA, no tenderness HEART : RRR, no obvious murmurs ABDOMEN: distention, epigastric tenderness EXTREMITIES : Bilateral LE swelling, no LE tenderness, no other conspicuous deformities noted NEUROLOGIC : Coherent, no facial asymmetry, no other gross focality Principal Diagnosis Acute pancreatitis Acute right leg deep vein thrombosis Possible sinusitis Discharge Data Allergies Allergy/AdvReac Type Severity Reaction Status Date / Time Sulfa (Sulfonamide Allergy Severe HIVES Verified 03/05/19 01:50 Antibiotics) sulfamethoxazole Allergy Severe Hives Verified 03/05/19 01:50 Consultations 03/05/19 03:46 ED Decision to Admit Stat 03/05/19 07:31 Consult Gastroenterology Routine Procedures Performed --CT ABD:There is no evidence of pulmonary embolus in the main, lobar, or segmental pulmonary arteries. There is no airspace consolidation or pleural effusion. There is mild aneurysmal dilatation of the ascending thoracic aorta which measures up to 4.0 cm. Findings are consistent with acute pancreatitis. There has been interval cholecystectomy from 02/14/2019. Stents are present within the common bile duct and the pancreatic duct. The pancreas enhances homogeneously. There is a 3.5 x 2.0 cm pocket of fluid in the left midabdomen inferior to the pancreatic tail. This likely represents a developing pseudocyst. The sterility of this collection cannot be assessed by CT. Mild hepatosplenomegaly. --MRCP: Status post cholecystectomy. Otherwise normal MRCP. Findings are consistent with mild acute pancreatitis. Trace pleural effusions. The common bile duct stent and pancreatic duct stents seen on the 03/05/2019 CT scan are not well-visualized. --Venous Doppler:There is occlusive deep venous thrombosis identified in the right calf within a posterior tibial vein. The remaining deep veins of the right lower extremity are clear. There is no sonographic evidence of deep venous thrombosis in the left lower extremity. A popliteal cyst is noted on the right. Ordered Studies 03/05/19 02:18 CT abd pelvis IV con only Urgent CT angio chest PE protocol Urgent 03/05/19 12:23 US venous doppler LE BI Routine 03/07/19 14:07 MR MRCP Routine Hospital Course (1) Recurrent pancreatitis: Acute pancreatitis Developing pancreatic pseudocyst H/O recurrent pancreatitis --CT ABD:There is no evidence of pulmonary embolus in the main, lobar, or segmental pulmonary arteries. There is no airspace consolidation or pleural effusion. There is mild aneurysmal dilatation of the ascending thoracic aorta which measures up to 4.0 cm. Findings are consistent with acute pancreatitis. There has been interval cholecystectomy from 02/14/2019. Stents are present within the common bile duct and the pancreatic duct. The pancreas enhances homogeneously. There is a 3.5 x 2.0 cm pocket of fluid in the left midabdomen in ferior to the pancreatic tail. This likely represents a developing pseudocyst. The sterility of this collection cannot be assessed by CT. Mild hepatosplenomegaly. --H/O Recent gallstone pancreatitis/cholecystitis status post cholecystectomy --MRCP: Status post cholecystectomy. Otherwise normal MRCP. Findings are consistent with mild acute pancreatitis. Trace pleural effusions. The common bile duct stent and pancreatic duct stents seen on the 03/05/2019 CT scan are not well-visualized. --Received IV fluids --Lipase levels improved --Advanced to low fat diet --No antibiotics --Appreciate GI input --Will need outpatient CT Arterial Portography in 3-4 weeks to reassess fluid collection Acute RLE DVT --Venous Doppler:There is occlusive deep venous thrombosis identified in the right calf within a posterior tibial vein. The remaining deep veins of the right lower extremity are clear. There is no sonographic evidence of deep venous thrombosis in the left lower extremity. A popliteal cyst is noted on the right. 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 lifestyle changes GERD On PPI DVT Px: Eliquis Code Status Full code Disposition Plan to discharge home today Total Time Total Time Spent Total Time Spent (In Minutes): 42 minutes Total Time Includes: Examination of the Patient, Discharge Planning, Medication Reconciliation, Communication With Other Providers and Other Discharge Plan Discharge Items Patient Disposition: Home - Self-Care Reason For Visit: PANCREATITIS Discharge Diagnosis: Acute pancreatitis Acute right leg deep vein thrombosis Possible sinusitis Condition on Discharge: Fair Activity: Resume your previous activity Exercise/Sports: Gradually increase as tolerated Non-emergency contact: Primary Care Provider and Horticulture/Floriculture Teacher Call non-emergency contact if: you have any medication questions, your symptoms worsen, your pain is not controlled, your pain is worsening, your pain is unusual for you, your pain is concerning for you and you have a fever Follow-up/Referrals: Dolores Clifford PA-C [Primary Care Provider] - Diet: Low Fat Addtl Attending Provider Instructions: Follow-up with your primary care physician Dr. Perez on March 11, 2019 at 1:45 PM Follow-up with your concrete floater Dr. Vides as scheduled Get repeat MRCP, CTAP as recommended by your concrete floater as outpatient Take Eliquis 10 mg twice a day for 5 more days and then start taking 5 mg twice a day from March 14, 2019 as advised Get hypercoagulable work-up to assess the cause for deep vein thrombosis as outpatient as advised Duration of anticoagulation with Eliquis to be determined by your primary care physician. Complete the antibiotic course for possible sinusitis as advised Seek immediate medical attention if your symptoms reoccur or worsen Pending Studies at Discharge: No Stand-Alone Forms: Call Back Authorization, [employer], Smoking Cessation Medications and DC Order Prescriptions: New amoxicillin-pot clavulanate 500-125 mg Tablet 1 tab PO BIDM Qty: 5 RF: 0 Eliquis 5 mg Tablet 10 mg PO UD Qty: 60 RF: 0 Continued pantoprazole 40 mg tablet,delayed release (DR/EC) 40 mg PO HS RF: 0 polyethylene glycol 3350 [Miralax] 17 gram Powder In Packet 17 g PO DAILY PRN (Reason: constipation) Qty: 30 RF: 0 Discharge Orders: Discharge Order (Routine); Ordered 03/08/19 Ordered By: Tk Guzman/Other Patient Handouts: DVT, Apixaban Oral tablet Admission Data Admit Date/Time: 03/05/19 05:28 Attending Provider: Tk Robertson Admit Provider: Amador Byrnes Primary Care Provider: Dolores Clifford Other Providers: Amador Byrnes ; Ralf Ugarte Other Interventions: Discharge Summary Assessment (RN) Last Done: 03/08/19 13:45 DC Date/Time DO NOT enter until pt leaves facility: 03/08/19 14:15
[2019-03-08 13:47] VITALS: PULSE 76
== END 2019-03-08 14:15 | disposition home or self-care (01) | DRG 439 ==
LOC: ED 01:21 → 3W 07:14